=== PATIENT | female | born 1950 | race Two or more races ===

== ENCOUNTER → 2016-11-12 | Outpatient (CLI) | payer MEDICARE, BC | LOC: OD 16:38 | PROVIDERS: ATTEND Internal Medicine | DX: Z94.0 Kidney transplant status (principal) | CPT/HCPCS: 36415; 80197 ==

== ENCOUNTER → 2017-07-23 | Outpatient (CLI) | payer MEDICARE, BC ==
[2017-07-23 09:58] LABS: APPEARANCE,URINE TURBID; BILIRUBIN,URINE NEGATIVE (NEGATIVE); GLUCOSE, URINE >=500 mg/dL (NEGATIVE); KETONES,URINE NEGATIVE (NEGATIVE); LEUKOCYTE ESTERASE,URINE LARGE (NEGATIVE); NITRITE,URINE POSITIVE (NEGATIVE); PROTEIN,URINE 30 mg/dL (NEGATIVE); URINE SPECIFIC GRAVITY 1.008; UROBILINOGEN,URINE NEGATIVE mg/dL (<2.0)
[2017-07-23 10:19] LABS: ANION GAP 14 (5-19); BLOOD UREA NITROGEN 38 mg/dL (7-20); CALCIUM 10.5 mg/dL (8.4-10.2); CARBON DIOXIDE 20 mmol/L (22-30); CHLORIDE 105 mmol/L (98-107); CREATININE RESULT 1.35 mg/dL (0.52-1.25); GLUCOSE 264 mg/dL (75-110); POTASSIUM 4.7 mmol/L (3.6-5.0); SODIUM 138.9 mmol/L (137-145)
== END ==
LOC: OD 08:52
PROVIDERS: ATTEND Internal Medicine Hypertension Specialist
DX: N39.0 Urinary tract infection, site not specified (principal); Z94.0 Kidney transplant status
CPT/HCPCS: 36415; 80048; 81001; 87086; 87088; 87186

== ENCOUNTER → 2017-11-12 | Outpatient (CLI) | payer MEDICARE, BC ==
--- NOTE | 2017-11-12 13:35 | RADIOLOGY REPORT (SQ) ---
EXAM DESCRIPTION: FOOT RIGHT COMPLETE COMPLETED DATE/TIME: 11/12/2017 9:35 am REASON FOR STUDY: Fracture of lesser toe(s) S92.5 COMPARISON: None. NUMBER OF VIEWS: Three views. TECHNIQUE: AP, lateral and oblique radiographic images acquired of the right foot. LIMITATIONS: None. FINDINGS: MINERALIZATION: Osteopenia. BONES: No acute fracture or dislocation. No worrisome bone lesions. JOINTS: No effusions. SOFT TISSUES: Vascular calcifications. OTHER: Plate and screw fixation healed distal fibular fracture. IMPRESSION: NO RADIOGRAPHIC EVIDENCE OF ACUTE INJURY. TECHNICAL DOCUMENTATION: JOB ID: [id number] [employer]- All Rights Reserved
== END ==
LOC: OD 09:15
PROVIDERS: ATTEND Preventive Medicine Undersea and Hyperbaric Medicine
DX: S92.501A Displaced unspecified fracture of right lesser toe(s), initial encounter for closed fracture (principal); X58.XXXA Exposure to other specified factors, initial encounter

== ENCOUNTER → 2018-05-11 | Outpatient (CLI) | payer MEDICARE, BC ==
[2018-05-11 17:58] LABS: ABSOLUTE EOSINOPHILS # (AUTO) 0.1 10^3/uL (0.0-0.6); ABSOLUTE LYMPHOCYTES (AUTO) 0.9 10^3/uL (0.5-4.7); ABSOLUTE MONOCYTES (AUTO) 0.5 10^3/uL (0.1-1.4); ABSOLUTE NEUT (AUTO) 3.6 10^3/uL (1.7-8.2); BASOPHILS % (AUTO) 0.9 % (0-2); EOSINOPHILS % (AUTO) 2.1 % (0-6); HEMATOCRIT 38.3 % (36.0-47.0); HEMOGLOBIN 12.8 g/dL (12.0-15.5); LYMPHOCYTES % (AUTO) 17.1 % (13-45); MEAN CORPUSCULAR HGB CONC 33.5 g/dL (32.0-36.0); MEAN CORPUSCULAR VOLUME 87 fl (80-97); MONOCYTES % (AUTO) 9.8 % (3-13); PLATELET COUNT 158 10^3/uL (150-450); RED BLOOD COUNT 4.42 10^6/uL (3.72-5.28); RED CELL DISTRIBUTION WIDTH 13.9 % (11.5-14.0); SEGMENTED NEUTROPHILS % (AUTO) 70.1 % (42-78); TOTAL CELLS COUNTED % (AUTO) 100 %; WHITE BLOOD COUNT 5.1 10^3/uL (4.0-10.5)
--- NOTE | 2018-05-11 18:22 | RADIOLOGY REPORT (SQ) ---
EXAM DESCRIPTION: FOOT LEFT COMPLETE COMPLETED DATE/TIME: 05/11/2018 5:25 pm REASON FOR STUDY: TYPE 2 DIABETES MELLITUS WITH FOOT ULCER/ L97.522 NON-PRS CHRONIC ULCER OTH PRT L EFT FOOT W FAT LAYER E11.621 TYPE 2 DIABETES MELLITUS WITH FOOT ULCER COMPARISON: 12/22/2015 NUMBER OF VIEWS: Three views. TECHNIQUE: AP, lateral and oblique radiographic images acquired of the left foot. LIMITATIONS: None. FINDINGS: MINERALIZATION: Osteopenia. BONES: Amputation of the forefoot. Metatarsal bases remain. There is irregular ossification of the distal ends of the 2nd and 3rd metatarsals. JOINTS: No effusions. SOFT TISSUES: No soft tissue swelling. No foreign body. OTHER: No other significant finding. IMPRESSION: Cannot exclude osteomyelitis in the 2nd and 3rd metatarsals. TECHNICAL DOCUMENTATION: JOB ID: [id number] [employer]- All Rights Reserved Reading location - IP/workstation name: [email or web address]
[2018-05-11 18:24] LABS: ALANINE AMINOTRANSFERASE 26 U/L (9-52); ALBUMIN 4.3 g/dL (3.5-5.0); ALKALINE PHOSPHATASE 81 U/L (38-126); ANION GAP 12 (5-19); ASPARTATE AMINO TRANSFERASE 25 U/L (14-36); BILIRUBIN,DIRECT 0.4 mg/dL (0.0-0.4); BILIRUBIN,TOTAL 0.6 mg/dL (0.2-1.3); BLOOD UREA NITROGEN 35 mg/dL (7-20); C-REACTIVE PROTEIN 6.3 mg/L (<10.0); CALCIUM 11.8 mg/dL (8.4-10.2); CARBON DIOXIDE 25 mmol/L (22-30); CHLORIDE 107 mmol/L (98-107); GLUCOSE 95 mg/dL (75-110); POTASSIUM 4.7 mmol/L (3.6-5.0); SODIUM 143.8 mmol/L (137-145); TOTAL PROTEIN 8.1 g/dL (6.3-8.2)
[2018-05-11 18:37] LABS: ERYTHROCYTE SEDIMENTATION RATE 29 mm/hr (0-30)
== END ==
LOC: OD 16:37
PROVIDERS: ATTEND Nurse Practitioner
DX: E11.621 Type 2 diabetes mellitus with foot ulcer (principal); L97.522 Non-pressure chronic ulcer of other part of left foot with fat layer exposed
CPT/HCPCS: 36415; 80053; 85025; 85652; 86140

== ENCOUNTER → 2018-06-16 | Outpatient (CLI) | payer MEDICARE, BC ==
--- NOTE | 2018-06-16 17:43 | RADIOLOGY REPORT (SQ) ---
EXAM DESCRIPTION: FOOT LEFT COMPLETE COMPLETED DATE/TIME: 06/16/2018 5:20 pm REASON FOR STUDY: L97.522, NON-PRS CHRONIC ULCER OTH PRT LEFT FOOT W FAT LAYER EXPOSED L97.522 NON- PRS CHRONIC ULCER OTH PRT LEFT FOOT W FAT LAYER COMPARISON: 05/11/2018 NUMBER OF VIEWS: Three views. TECHNIQUE: AP, lateral and oblique radiographic images acquired of the left foot. LIMITATIONS: None. FINDINGS: MINERALIZATION: Normal. BONES: Amputation of the forefoot from the mid metatarsal level. No evidence of osteomyelitis. JOINTS: No effusions. SOFT TISSUES: No soft tissue swelling. No foreign body. OTHER: No other significant finding. IMPRESSION: Amputations. No evidence of osteomyelitis. TECHNICAL DOCUMENTATION: JOB ID: [id number] [employer]- All Rights Reserved Reading location - IP/workstation name: [email or web address]
== END ==
LOC: OD 16:54
PROVIDERS: ATTEND Preventive Medicine Undersea and Hyperbaric Medicine
DX: L97.522 Non-pressure chronic ulcer of other part of left foot with fat layer exposed (principal)

== ENCOUNTER → 2018-06-27 | Outpatient (CLI) | payer MEDICARE, BC ==
--- NOTE | 2018-06-27 15:20 | XCELERA REPORT ---
[address] [address] Lower Extremity Arterial Evaluation Name: HETAL BERMAN Age: 67 yrs Gender: Female : 1950 Patient Status: Outpatient Patient Location: RAD Study Date: 06/27/2018 09:57 AM Procedure: A color flow and duplex scan of the lower extremity arteries was performed bilaterally with velocity and waveform anaylsis. Reason For Study: ULCER Ordering Physician: SERGEY CHILDRESS Performed By: Michelet Elliott Measurements and Calculations Right Left DATABASE PROGRAMMER ANALYST PSV 120.8 125.7 cm/sec Prox PFA PSV -116.9 95.9 cm/sec Prox SFA PSV 106.9 149.3 cm/sec Mid SFA PSV -101.8 -120.1cm/sec Dist SFA PSV -32.3 -81.5 cm/sec Prox Pop A PSV 66.7 98.7 cm/sec Dist MARY PSV 57.0 29.7 cm/sec Dist SITE RELIABILITY ENGINEER PSV 46.6 114.1 cm/sec Theron Pedis PSV -140.4 cm/sec Right Side Arterial Evaluation Normal velocity and triphasic waveforms noted from the Common Femoral artery to the Popliteal. Biphasic with well preserved velocities to the infrageniculate vessels. 0-19% stenosis at the infrageniculate vessels. Ankle Brachial index not obtainable due to non compressibility. Left Side Arterial Evaluation Normal velocity and triphasic waveforms noted from the Common Femoral artery to the infrageniculate vessels. 0 % stenosis. Ankle Brachial index obtainable due to presence of bandaging.. Interpretation Summary : SERGEY CHILDRESS > Cyrus Carias
== END ==
LOC: RAD 09:33
PROVIDERS: ATTEND Preventive Medicine Undersea and Hyperbaric Medicine
DX: L97.522 Non-pressure chronic ulcer of other part of left foot with fat layer exposed (principal)
CPT/HCPCS: 93925

== ENCOUNTER → 2018-10-20 | Outpatient (CLI) | payer MEDICARE, BC ==
--- NOTE | 2018-10-20 13:04 | RADIOLOGY REPORT (SQ) ---
EXAM DESCRIPTION: CHEST PA/LATERAL COMPLETED DATE/TIME: 10/20/2018 12:52 pm REASON FOR STUDY: COUGH; BRONCHITIS, NOT SPECIFIED ACUTE OR CHRONIC COMPARISON: 11/06/2010. Chest x-ray dated 11/06/2010. Chest CT dated 09/17/2015. EXAM PARAMETERS: NUMBER OF VIEWS: two views TECHNIQUE: Digital Frontal and Lateral radiographic views of the chest acquired. RADIATION DOSE: NA LIMITATIONS: none FINDINGS: LUNGS AND PLEURA: Indistinct 1.5 cm nodule in the left lower lobe, partially obscured by t he adjacent cardiac silhouette. No lobar infiltrates. No pleural effusion or pneumothorax. MEDIASTINUM AND HILAR STRUCTURES: No masses or contour abnormalities. HEART AND VASCULAR STRUCTURES: Heart normal size. No evidence for failure. BONES: No acute findings. HARDWARE: Surgical clips in the upper abdomen. OTHER: No other significant finding. IMPRESSION: INDISTINCT NODULE IN THE LEFT LOWER LOBE. PREVIOUS CHEST CT IN 2014 DEMONSTRATED A LEFT LOWER LOBE NODULE ALTHOUGH ON CHEST CT THE NODULE WAS LOCATED MORE LATERALLY COMPARED TO THE CURRENT CHEST X-RAY. WOULD RECOMMEND FOLLOW-UP WITH CT CHEST. TECHNICAL DOCUMENTATION: JOB ID: [id number] [employer]- All Rights Reserved Reading location - IP/workstation name: [email or web address]
[2018-10-20 13:06] LABS: ABSOLUTE BASOPHILS # (AUTO) 0.1 10^3/uL (0.0-0.2); ABSOLUTE EOSINOPHILS # (AUTO) 0.3 10^3/uL (0.0-0.6); ABSOLUTE LYMPHOCYTES (AUTO) 0.8 10^3/uL (0.5-4.7); ABSOLUTE MONOCYTES (AUTO) 0.6 10^3/uL (0.1-1.4); ABSOLUTE NEUT (AUTO) 5.4 10^3/uL (1.7-8.2); BASOPHILS % (AUTO) 1.3 % (0-2); EOSINOPHILS % (AUTO) 3.5 % (0-6); HEMATOCRIT 38.5 % (36.0-47.0); MEAN CORPUSCULAR HEMOGLOBIN 29.1 pg (27.0-33.4); MEAN CORPUSCULAR HGB CONC 33.7 g/dL (32.0-36.0); MEAN CORPUSCULAR VOLUME 86 fl (80-97); MONOCYTES % (AUTO) 8.5 % (3-13); PLATELET COUNT 169 10^3/uL (150-450); RED BLOOD COUNT 4.46 10^6/uL (3.72-5.28); RED CELL DISTRIBUTION WIDTH 13.9 % (11.5-14.0); SEGMENTED NEUTROPHILS % (AUTO) 75.7 % (42-78); TOTAL CELLS COUNTED % (AUTO) 100 %; WHITE BLOOD COUNT 7.1 10^3/uL (4.0-10.5)
[2018-10-20 13:31] LABS: ALANINE AMINOTRANSFERASE < 6 U/L (9-52); ALBUMIN 4.3 g/dL (3.5-5.0); ALKALINE PHOSPHATASE 73 U/L (38-126); ANION GAP 11 (5-19); ASPARTATE AMINO TRANSFERASE 18 U/L (14-36); BILIRUBIN,DIRECT 0.3 mg/dL (0.0-0.4); BILIRUBIN,TOTAL 0.6 mg/dL (0.2-1.3); BLOOD UREA NITROGEN 36 mg/dL (7-20); CALCIUM 10.6 mg/dL (8.4-10.2); CARBON DIOXIDE 24 mmol/L (22-30); CHLORIDE 107 mmol/L (98-107); GLUCOSE 83 mg/dL (75-110); POTASSIUM 4.5 mmol/L (3.6-5.0); SODIUM 141.8 mmol/L (137-145); TOTAL PROTEIN 7.8 g/dL (6.3-8.2)
== END ==
LOC: OD 12:14
PROVIDERS: ATTEND Internal Medicine
DX: R05 Cough (principal); J40 Bronchitis, not specified as acute or chronic; E11.8 Type 2 diabetes mellitus with unspecified complications; E11.621 Type 2 diabetes mellitus with foot ulcer; L97.522 Non-pressure chronic ulcer of other part of left foot with fat layer exposed; R91.1 Solitary pulmonary nodule
CPT/HCPCS: 36415; 71046; 80053; 85025

== ENCOUNTER → 2018-11-17 | Outpatient (CLI) | payer MEDICARE, BC ==
[2018-11-17 17:57] LABS: ABSOLUTE EOSINOPHILS # (AUTO) 0.1 10^3/uL (0.0-0.6); ABSOLUTE LYMPHOCYTES (AUTO) 0.6 10^3/uL (0.5-4.7); ABSOLUTE MONOCYTES (AUTO) 0.3 10^3/uL (0.1-1.4); ABSOLUTE NEUT (AUTO) 3.9 10^3/uL (1.7-8.2); BASOPHILS % (AUTO) 0.7 % (0-2); EOSINOPHILS % (AUTO) 2.2 % (0-6); HEMATOCRIT 37.1 % (36.0-47.0); HEMOGLOBIN 12.5 g/dL (12.0-15.5); LYMPHOCYTES % (AUTO) 11.6 % (13-45); MEAN CORPUSCULAR HEMOGLOBIN 29.1 pg (27.0-33.4); MEAN CORPUSCULAR HGB CONC 33.7 g/dL (32.0-36.0); MEAN CORPUSCULAR VOLUME 86 fl (80-97); MONOCYTES % (AUTO) 6.1 % (3-13); PLATELET COUNT 147 10^3/uL (150-450); RED BLOOD COUNT 4.29 10^6/uL (3.72-5.28); RED CELL DISTRIBUTION WIDTH 14.4 % (11.5-14.0); SEGMENTED NEUTROPHILS % (AUTO) 79.4 % (42-78); TOTAL CELLS COUNTED % (AUTO) 100 %; WHITE BLOOD COUNT 4.9 10^3/uL (4.0-10.5)
[2018-11-17 18:19] LABS: ALANINE AMINOTRANSFERASE 18 U/L (9-52); ALBUMIN 4.6 g/dL (3.5-5.0); ALKALINE PHOSPHATASE 78 U/L (38-126); ANION GAP 8 (5-19); ASPARTATE AMINO TRANSFERASE 21 U/L (14-36); BILIRUBIN,DIRECT 0.3 mg/dL (0.0-0.4); BILIRUBIN,TOTAL 0.7 mg/dL (0.2-1.3); BLOOD UREA NITROGEN 32 mg/dL (7-20); CALCIUM 10.3 mg/dL (8.4-10.2); CARBON DIOXIDE 25 mmol/L (22-30); CHLORIDE 107 mmol/L (98-107); GLUCOSE 154 mg/dL (75-110); POTASSIUM 4.8 mmol/L (3.6-5.0); SODIUM 139.9 mmol/L (137-145); TOTAL PROTEIN 7.9 g/dL (6.3-8.2)
--- NOTE | 2018-11-17 18:27 | RADIOLOGY REPORT (SQ) ---
EXAM DESCRIPTION: FOOT LEFT COMPLETE COMPLETED DATE/TIME: 11/17/2018 5:48 pm REASON FOR STUDY: NON-PRS CHRONIC ULCER OTH PRT LEFT FOOT W FAT LAYER EXPOSED E11.621 TYPE 2 DIABET ES MELLITUS WITH FOOT ULCER L97.522 NON-PRS CHRONIC ULCER OTH PRT LEFT FOOT W FAT LAYER M25.551 PA IN IN RIGHT HIP COMPARISON: None. NUMBER OF VIEWS: Three views. TECHNIQUE: AP, lateral and oblique radiographic images acquired of the left foot. LIMITATIONS: None. FINDINGS: MINERALIZATION: Normal. BONES: Amputation of the forefoot from the proximal to mid metatarsal level. No evidence of osteomye litis. Plantar and dorsal calcaneal spurs. JOINTS: No effusions. SOFT TISSUES: Anterior ulcer. OTHER: No other significant finding. IMPRESSION: No evidence of osteomyelitis. TECHNICAL DOCUMENTATION: JOB ID: [id number] [employer]- All Rights Reserved Reading location - IP/workstation name: [email or web address]
--- NOTE | 2018-11-17 18:28 | RADIOLOGY REPORT (SQ) ---
EXAM DESCRIPTION: HIPS BILATERAL COMPLETED DATE/TIME: 11/17/2018 5:48 pm REASON FOR STUDY: BILAT HIP PAIN E11.621 TYPE 2 DIABETES MELLITUS WITH FOOT ULCER L97.522 NON-PRS CHRONIC ULCER OTH PRT LEFT FOOT W FAT LAYER M25.551 PAIN IN RIGHT HIP COMPARISON: None. NUMBER OF VIEWS: Two views TECHNIQUE: AP pelvis and additional frog-leg view of both hips. LIMITATIONS: None. FINDINGS: MINERALIZATION: Normal. HIPS: No acute fracture or dislocation. No worrisome bone lesions. PELVIS AND SACRUM: No acute fracture or dislocation. No worrisome bone lesions. PUBIS AND ISCHIUM: No acute fracture. LOWER LUMBAR SPINE: No significant findings as visualized. SOFT TISSUES: No findings. OTHER: No other significant finding. IMPRESSION: NEGATIVE STUDY OF THE PELVIS AND HIPS. TECHNICAL DOCUMENTATION: JOB ID: [id number] [employer]- All Rights Reserved Reading location - IP/workstation name: [email or web address]
[2018-11-17 18:57] LABS: ERYTHROCYTE SEDIMENTATION RATE 23 mm/hr (0-30)
== END ==
LOC: OD 16:31
PROVIDERS: ATTEND Surgery
DX: M25.551 Pain in right hip (principal); E11.621 Type 2 diabetes mellitus with foot ulcer; L97.522 Non-pressure chronic ulcer of other part of left foot with fat layer exposed
CPT/HCPCS: 36415; 73522; 80053; 83036; 85025; 85652; 86140

== ENCOUNTER → 2019-01-17 | Outpatient (CLI) | payer MEDICARE, BC ==
--- NOTE | 2019-01-17 14:10 | RADIOLOGY REPORT (SQ) ---
EXAM DESCRIPTION: FOOT LEFT COMPLETE COMPLETED DATE/TIME: 01/17/2019 1:54 pm REASON FOR STUDY: NON-PRS CHRONIC ULCER OTH PRT LEFT FOOT W FAT LAYER EXPOSED L97.522 NON-PRS CHRON IC ULCER OTH PRT LEFT FOOT W FAT LAYER COMPARISON: 11/17/2018 NUMBER OF VIEWS: Three views. TECHNIQUE: AP, lateral and oblique radiographic images acquired of the left foot. LIMITATIONS: None. FINDINGS: MINERALIZATION: Normal. BONES: As on the previous examination, amputation of the forefoot down to the mid metatarsal levels. No evidence of erosions or destruction of bone. No acute fracture. Prominent calcaneal spurs. JOINTS: No effusions. SOFT TISSUES: Soft tissue injury and swelling consistent with the patient's known anterior ulcer. N o foreign body. Soft tissue vascular calcifications. OTHER: No other significant finding. IMPRESSION: 1. No significant interval changes since the prior study dated 11/17/2018. No evidence of osteomyelitis. TECHNICAL DOCUMENTATION: JOB ID: [id number] [employer]- All Rights Reserved Reading location - IP/workstation name: [email or web address]
[2019-01-17 14:15] LABS: ABSOLUTE EOSINOPHILS # (AUTO) 0.1 10^3/uL (0.0-0.6); ABSOLUTE LYMPHOCYTES (AUTO) 0.7 10^3/uL (0.5-4.7); ABSOLUTE MONOCYTES (AUTO) 0.4 10^3/uL (0.1-1.4); ABSOLUTE NEUT (AUTO) 3.4 10^3/uL (1.7-8.2); BASOPHILS % (AUTO) 0.8 % (0-2); EOSINOPHILS % (AUTO) 2.1 % (0-6); HEMATOCRIT 36.4 % (36.0-47.0); HEMOGLOBIN 12.4 g/dL (12.0-15.5); LYMPHOCYTES % (AUTO) 15.2 % (13-45); MEAN CORPUSCULAR HEMOGLOBIN 29.3 pg (27.0-33.4); MEAN CORPUSCULAR VOLUME 86 fl (80-97); MONOCYTES % (AUTO) 9.7 % (3-13); PLATELET COUNT 148 10^3/uL (150-450); RED BLOOD COUNT 4.22 10^6/uL (3.72-5.28); RED CELL DISTRIBUTION WIDTH 14.8 % (11.5-14.0); SEGMENTED NEUTROPHILS % (AUTO) 72.2 % (42-78); TOTAL CELLS COUNTED % (AUTO) 100 %; WHITE BLOOD COUNT 4.6 10^3/uL (4.0-10.5)
[2019-01-17 14:42] LABS: ALANINE AMINOTRANSFERASE 23 U/L (9-52); ALBUMIN 4.4 g/dL (3.5-5.0); ALKALINE PHOSPHATASE 82 U/L (38-126); ANION GAP 10 (5-19); ASPARTATE AMINO TRANSFERASE 19 U/L (14-36); BILIRUBIN,DIRECT 0.3 mg/dL (0.0-0.4); BILIRUBIN,TOTAL 0.6 mg/dL (0.2-1.3); BLOOD UREA NITROGEN 26 mg/dL (7-20); C-REACTIVE PROTEIN 6.1 mg/L (<10.0); CALCIUM 10.7 mg/dL (8.4-10.2); CARBON DIOXIDE 24 mmol/L (22-30); CHLORIDE 108 mmol/L (98-107); GLUCOSE 90 mg/dL (75-110); POTASSIUM 4.3 mmol/L (3.6-5.0); SODIUM 141.5 mmol/L (137-145); TOTAL PROTEIN 7.7 g/dL (6.3-8.2)
[2019-01-17 15:05] LABS: ERYTHROCYTE SEDIMENTATION RATE 26 mm/hr (0-30)
== END ==
LOC: WC 13:16
PROVIDERS: ATTEND Preventive Medicine Undersea and Hyperbaric Medicine
DX: L97.522 Non-pressure chronic ulcer of other part of left foot with fat layer exposed (principal)
CPT/HCPCS: 36415; 80053; 85025; 85652; 86140

== ENCOUNTER → 2019-04-13 | Outpatient (CLI) | payer MEDICARE, BC ==
--- NOTE | 2019-04-13 13:25 | RADIOLOGY REPORT (SQ) ---
EXAM DESCRIPTION: FOOT LEFT COMPLETE COMPLETED DATE/TIME: 04/13/2019 12:56 pm REASON FOR STUDY: NON-PRS CHRONIC ULCER OTH PRT LEFT FOOT W FAT LAYER EXPOSED L97.522 NON-PRS CHRON IC ULCER OTH PRT LEFT FOOT W FAT LAYER COMPARISON: 01/17/2019, 11/17/2018,, 12/22/2015 NUMBER OF VIEWS: Three views. TECHNIQUE: AP, lateral and oblique radiographic images acquired of the left foot. LIMITATIONS: None. FINDINGS: MINERALIZATION: Overall normal bone density. Stable sclerosis along the 2nd 3rd and 4th d istal metatarsals at the site of prior transmetatarsal amputation. BONES: No new areas of bony erosion/demineralization or periosteal new bone to suggest osteomyelitis. JOINTS: No effusions. SOFT TISSUES: Again, there is ulceration and irregularity along the soft tissues of the forefoot at t he site of the transmetatarsal amputation OTHER: No other significant finding. IMPRESSION: Stable appearance of the left foot compared to 01/17/2019 and 11/17/2018 TECHNICAL DOCUMENTATION: JOB ID: [id number] [employer]- All Rights Reserved Reading location - IP/workstation name: [email or web address]
== END ==
LOC: WC 12:37
PROVIDERS: ATTEND Preventive Medicine Undersea and Hyperbaric Medicine
DX: L97.522 Non-pressure chronic ulcer of other part of left foot with fat layer exposed (principal)

== ENCOUNTER → 2019-07-25 | Outpatient (CLI) | payer MEDICARE, BC ==
[2019-07-25 12:34] LABS: ABSOLUTE EOSINOPHILS # (AUTO) 0.1 10^3/uL (0.0-0.6); ABSOLUTE LYMPHOCYTES (AUTO) 0.7 10^3/uL (0.5-4.7); ABSOLUTE MONOCYTES (AUTO) 0.5 10^3/uL (0.1-1.4); ABSOLUTE NEUT (AUTO) 4.2 10^3/uL (1.7-8.2); BASOPHILS % (AUTO) 0.6 % (0-2); EOSINOPHILS % (AUTO) 1.7 % (0-6); HEMATOCRIT 37.4 % (36.0-47.0); HEMOGLOBIN 12.5 g/dL (12.0-15.5); LYMPHOCYTES % (AUTO) 12.1 % (13-45); MEAN CORPUSCULAR HEMOGLOBIN 28.4 pg (27.0-33.4); MEAN CORPUSCULAR HGB CONC 33.3 g/dL (32.0-36.0); MEAN CORPUSCULAR VOLUME 85 fl (80-97); MONOCYTES % (AUTO) 8.5 % (3-13); PLATELET COUNT 137 10^3/uL (150-450); RED BLOOD COUNT 4.39 10^6/uL (3.72-5.28); RED CELL DISTRIBUTION WIDTH 14.4 % (11.5-14.0); SEGMENTED NEUTROPHILS % (AUTO) 77.1 % (42-78); TOTAL CELLS COUNTED % (AUTO) 100 %; WHITE BLOOD COUNT 5.4 10^3/uL (4.0-10.5)
[2019-07-25 13:05] LABS: ALBUMIN 4.1 g/dL (3.5-5.0); ALKALINE PHOSPHATASE 83 U/L (38-126); ANION GAP 10 (5-19); ASPARTATE AMINO TRANSFERASE 16 U/L (14-36); BILIRUBIN,DIRECT 0.2 mg/dL (0.0-0.4); BILIRUBIN,TOTAL 0.8 mg/dL (0.2-1.3); BLOOD UREA NITROGEN 40 mg/dL (7-20); CALCIUM 10.1 mg/dL (8.4-10.2); CARBON DIOXIDE 23 mmol/L (22-30); CHLORIDE 107 mmol/L (98-107); GLUCOSE 227 mg/dL (75-110); POTASSIUM 4.5 mmol/L (3.6-5.0); TOTAL PROTEIN 7.4 g/dL (6.3-8.2)
[2019-07-25 13:09] LABS: C-REACTIVE PROTEIN < 5.0 mg/L (<10.0)
[2019-07-25 13:12] LABS: ERYTHROCYTE SEDIMENTATION RATE 21 mm/hr (0-30)
--- NOTE | 2019-07-25 16:50 | RADIOLOGY REPORT (SQ) ---
EXAM DESCRIPTION: FOOT LEFT COMPLETE COMPLETED DATE/TIME: 07/25/2019 12:25 pm REASON FOR STUDY: NON-PRS CHRONIC ULCER OTH PRT LEFT FOOT W FAT LAYER EXPOSED L97.522 NON-PRS CHRON IC ULCER OTH PRT LEFT FOOT W FAT LAYER E11.621 TYPE 2 DIABETES MELLITUS WITH FOOT ULCER COMPARISON: AP, lateral and oblique views of the left foot from 04/13/2019. NUMBER OF VIEWS: Three views. TECHNIQUE: AP, lateral and oblique radiographic images acquired of the left foot. LIMITATIONS: None. FINDINGS: MINERALIZATION: Normal. BONES: Status post transmetatarsal amputation ; the irregularity/sclerosis along the distal aspect of the 2nd, 3rd and 4th metatarsals is unchanged compared to 04/13/2019. There is no subcutaneous emphy sema or radiopaque foreign body. JOINTS: No effusions. SOFT TISSUES: Ulceration and irregularity along the soft tissues of the forefoot at the site of trans metatarsal amputation, unchanged. OTHER: Vascular calcifications. IMPRESSION: Unchanged radiographic appearance of the left foot as detailed above. TECHNICAL DOCUMENTATION: JOB ID: [id number] [employer]- All Rights Reserved Reading location - IP/workstation name: [email or web address]
== END ==
LOC: WC 11:52
PROVIDERS: ATTEND Preventive Medicine Undersea and Hyperbaric Medicine
DX: E11.621 Type 2 diabetes mellitus with foot ulcer (principal); L97.522 Non-pressure chronic ulcer of other part of left foot with fat layer exposed; Z89.432 Acquired absence of left foot
CPT/HCPCS: 36415; 80053; 83036; 85025; 85652; 86140

== ENCOUNTER → 2019-09-12 | Outpatient (CLI) | payer MEDICARE, BC ==
--- NOTE | 2019-09-12 13:03 | RADIOLOGY REPORT (SQ) ---
EXAM DESCRIPTION: FOOT LEFT COMPLETE COMPLETED DATE/TIME: 09/12/2019 12:40 pm REASON FOR STUDY: NON-PRS CHRONIC ULCER OTH PRT LEFT FOOT W FAT LAYER EXPOSED L97.522 NON-PRS CHRON IC ULCER OTH PRT LEFT FOOT W FAT LAYER E11.621 TYPE 2 DIABETES MELLITUS WITH FOOT ULCER COMPARISON: None. NUMBER OF VIEWS: Three views. TECHNIQUE: AP, lateral and oblique radiographic images acquired of the left foot. LIMITATIONS: None. FINDINGS: MINERALIZATION: Normal. BONES: Forefoot amputation from the mid metatarsals. No bone destruction. Calcaneal spurs. JOINTS: No effusions. SOFT TISSUES: No soft tissue swelling. No foreign body. OTHER: No other significant finding. IMPRESSION: No evidence of osteomyelitis. Calcaneal spurs are present incidentally. TECHNICAL DOCUMENTATION: JOB ID: [id number] [email or web address]- All Rights Reserved Reading location - IP/workstation name: [email or web address]
[2019-09-12 13:33] LABS: ABSOLUTE EOSINOPHILS # (AUTO) 0.1 10^3/uL (0.0-0.6); ABSOLUTE LYMPHOCYTES (AUTO) 0.7 10^3/uL (0.5-4.7); ABSOLUTE MONOCYTES (AUTO) 0.5 10^3/uL (0.1-1.4); ABSOLUTE NEUT (AUTO) 4.9 10^3/uL (1.7-8.2); BASOPHILS % (AUTO) 0.7 % (0-2); EOSINOPHILS % (AUTO) 1.9 % (0-6); HEMATOCRIT 36.1 % (36.0-47.0); HEMOGLOBIN 12.2 g/dL (12.0-15.5); LYMPHOCYTES % (AUTO) 11.5 % (13-45); MEAN CORPUSCULAR HEMOGLOBIN 28.7 pg (27.0-33.4); MEAN CORPUSCULAR HGB CONC 33.8 g/dL (32.0-36.0); MEAN CORPUSCULAR VOLUME 85 fl (80-97); MONOCYTES % (AUTO) 7.4 % (3-13); PLATELET COUNT 137 10^3/uL (150-450); RED BLOOD COUNT 4.25 10^6/uL (3.72-5.28); RED CELL DISTRIBUTION WIDTH 14.4 % (11.5-14.0); SEGMENTED NEUTROPHILS % (AUTO) 78.5 % (42-78); TOTAL CELLS COUNTED % (AUTO) 100 %; WHITE BLOOD COUNT 6.3 10^3/uL (4.0-10.5)
[2019-09-12 13:58] LABS: ALBUMIN 4.1 g/dL (3.5-5.0); ALKALINE PHOSPHATASE 71 U/L (38-126); ANION GAP 12 (5-19); ASPARTATE AMINO TRANSFERASE 18 U/L (14-36); BILIRUBIN,DIRECT 0.2 mg/dL (0.0-0.4); BILIRUBIN,TOTAL 0.8 mg/dL (0.2-1.3); BLOOD UREA NITROGEN 38 mg/dL (7-20); CALCIUM 10.3 mg/dL (8.4-10.2); CARBON DIOXIDE 22 mmol/L (22-30); CHLORIDE 110 mmol/L (98-107); GLUCOSE 89 mg/dL (75-110); POTASSIUM 4.4 mmol/L (3.6-5.0); TOTAL PROTEIN 7.5 g/dL (6.3-8.2)
[2019-09-12 14:03] LABS: C-REACTIVE PROTEIN < 5.0 mg/L (<10.0)
[2019-09-12 14:17] LABS: ERYTHROCYTE SEDIMENTATION RATE 16 mm/hr (0-30)
== END ==
LOC: OD 12:05
PROVIDERS: ATTEND Preventive Medicine Undersea and Hyperbaric Medicine
DX: E11.621 Type 2 diabetes mellitus with foot ulcer (principal); L97.522 Non-pressure chronic ulcer of other part of left foot with fat layer exposed; M77.32 Calcaneal spur, left foot
CPT/HCPCS: 36415; 80053; 83036; 85025; 85652; 86140

== ENCOUNTER 2019-12-27 23:20 | Inpatient (IN) | payer MEDICARE, BC ==
[2019-12-27 23:57] LABS: ABSOLUTE EOSINOPHILS # (AUTO) 0.1 10^3/uL (0.0-0.6); ABSOLUTE LYMPHOCYTES (AUTO) 0.7 10^3/uL (0.5-4.7); ABSOLUTE MONOCYTES (AUTO) 0.6 10^3/uL (0.1-1.4); ABSOLUTE NEUT (AUTO) 3.7 10^3/uL (1.7-8.2); BASOPHILS % (AUTO) 0.6 % (0-2); HEMATOCRIT 37.5 % (36.0-47.0); HEMOGLOBIN 12.4 g/dL (12.0-15.5); LYMPHOCYTES % (AUTO) 14.4 % (13-45); MEAN CORPUSCULAR HEMOGLOBIN 28.7 pg (27.0-33.4); MEAN CORPUSCULAR VOLUME 87 fl (80-97); MONOCYTES % (AUTO) 11.7 % (3-13); PLATELET COUNT 134 10^3/uL (150-450); RED BLOOD COUNT 4.31 10^6/uL (3.72-5.28); SEGMENTED NEUTROPHILS % (AUTO) 72.3 % (42-78); TOTAL CELLS COUNTED % (AUTO) 100 %; WHITE BLOOD COUNT 5.2 10^3/uL (4.0-10.5)
[2019-12-28 00:20] LABS: ALBUMIN 3.9 g/dL (3.5-5.0); ALKALINE PHOSPHATASE 115 U/L (38-126); ANION GAP 11 (5-19); ASPARTATE AMINO TRANSFERASE 18 U/L (14-36); BILIRUBIN,DIRECT 0.3 mg/dL (0.0-0.4); BILIRUBIN,TOTAL 0.6 mg/dL (0.2-1.3); BLOOD UREA NITROGEN 46 mg/dL (7-20); CALCIUM 9.6 mg/dL (8.4-10.2); CARBON DIOXIDE 17 mmol/L (22-30); CHLORIDE 111 mmol/L (98-107); GLUCOSE 171 mg/dL (75-110); TOTAL PROTEIN 7.6 g/dL (6.3-8.2)
[2019-12-28 00:22] LABS: POTASSIUM 6.1 mmol/L (3.6-5.0)
[2019-12-28] MEDS ORDERED: FENTANYL CITRATE INJ/PF 100 MCG/2 ML AMPUL IV PRN (00:43)
[2019-12-28] MEDS ORDERED: ONDANSETRON HCL INJ/PF 4 MG/2 ML SDV IV ONE (00:43)
[2019-12-28] MEDS ORDERED: INSULIN REG, HUMAN 100 UNIT/ML 3 ML VIAL (PYX) IV ONE (00:54)
[2019-12-28] MEDS ORDERED: SODIUM POLYSTYRENE SULFONATE 15 GM/60 ML NG ONE (00:54)
[2019-12-28] MEDS ORDERED: CALCIUM GLUCONATE 1000 MG/10 ML INJ IV ONE (00:54)
[2019-12-28] MEDS ORDERED: DEXTROSE 50%-WATER 25 GM/50 ML DISP.SYRIN IV ONE (00:54)
[2019-12-28] MEDS ORDERED: SODIUM BICARBONATE 8.4% INJ 50 MEQ/50 ML DISP.SYRIN IV ONE (00:56)
--- NOTE | 2019-12-28 01:05 | ER Document Report ---
ED General - General Chief Complaint: General Weakness Stated Complaint: WEAKNESS Time Seen by Provider: 12/28/19 00:24 Primary Care Provider: BRIA VALENCIA MD [Primary Care Provider] - Follow up as needed TRAVEL OUTSIDE OF THE [place] IN LAST 30 DAYS: No - HPI Notes: 69-year-old female with previous renal transplant in 2011 seen at this time for generalized weakness worsening over the last several days. No vomiting. No fever. No focal weakness. - Related Data Allergies/Adverse Reactions: azithromycin [From Zithromax] Adverse Reaction (Verified 12/22/15 16:17) codeine [Codeine] Adverse Reaction (Verified 12/22/15 16:17) Home Medications: asa 81mg po. tacrolimus 1mg bid. prilosec 1 daily. restoril as needed for sleep. prednisone 5m po daily Past Medical History - General Information source: Patient, Relative - Social History Smoking Status: Never Smoker Chew tobacco use (# tins/day): No Frequency of alcohol use: None Drug Abuse: None Family History: Reviewed & Not Pertinent Patient has suicidal ideation: No Patient has homicidal ideation: No - Past Medical History Cardiac Medical History: Reports: Hx Coronary Artery Disease, Hx Hypercholesterolemia, Hx Hypertension, Hx Peripheral Vascular Disease Denies: Hx Heart Attack Pulmonary Medical History: Denies: Hx Asthma, Hx Bronchitis, Hx COPD, Hx Pneumonia Neurological Medical History: Denies: Hx Cerebrovascular Accident, Hx Seizures Endocrine Medical History: Reports: Hx Diabetes Mellitus Type 2 Renal/ Medical History: Reports: Hx End Stage Renal Disease - w/ kidney transplant Musculoskeletal Medical History: Denies Hx Arthritis Skin Medical History: Reports Hx Cellulitis Psychiatric Medical History: Denies: Hx Depression Past Surgical History: Reports: Hx Cholecystectomy, Hx Kidney (Renal Surgery) - transplant, 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 Denies: Hx Hysterectomy, Hx Pacemaker - Immunizations Hx Diphtheria, Pertussis, Tetanus Vaccination: Yes Hx Pneumococcal Vaccination: 11/01/09 Review of Systems - Review of Systems Notes: Constitutional: Negative for fever. HENT: Negative for sore throat. Eyes: Negative for visual changes. Cardiovascular: Negative for chest pain. Respiratory: Negative for shortness of breath. Gastrointestinal: Negative for abdominal pain, vomiting or diarrhea. Genitourinary: Negative for dysuria. Musculoskeletal: Negative for back pain. Skin: Negative for rash. Neurological: Negative for headaches, focal weakness or numbness. 10 point ROS negative except as marked above and in HPI. Physical Exam - Vital signs Vitals: Temp Pulse Resp BP Pulse Ox 98.1 F 81 19 172/76 H 98 12/27/19 23:20 12/27/19 23:20 12/27/19 23:20 12/27/19 23:20 12/27/19 23:20 - Notes Notes: GENERAL: Moderately obese female approximately stated age appearing in no acute distress. SKIN: Good turgor no rashes. HEAD: Normocephalic atraumatic. EYES: PERRLA. EOMI. Conjunctivae and sclerae clear. EARS: CANALS AND TMS CLEAR. NOSE: CLEAR. MOUTH: Moist mucosa. Good dentition. No stridor or edema. No drooling. NECK: Supple. No masses or thyromegaly. No adenopathy. Carotids 2+ without bruits. No JVD. BACK: Symmetrical without tenderness. CHEST: Respirations unlabored. Breath sounds clear and symmetrical. HEART: Regular rhythm. No murmur gallop or rub. ABDOMEN: Soft nontender without masses, organomegaly or rebound. Bowel sounds normally active. No bruits. GENITALIA: Deferred. EXTREMITIES: Previous amputation of all the toes on the left foot with surgical dressing in place. No edema. No calf tenderness. Cap refill less than 1.5 seconds. Dorsalis pedis and posterior tibial pulses 1+ and symmetrical. NEUROLOGICAL: GCS 15. Alert and oriented x3. Fluent speech. Cranial nerves II through XII intact. Sensorimotor and cerebellar normal. Normal tone. PSYCHIATRIC: Appropriate affect. Course - Re-evaluation Re-evalutation: 12/28/19 01:04 Patient is hyperkalemic. We are going to give calcium gluconate IV along with IV glucose and insulin IV bicarb. We are also giving patient oral Kayexalate. She is placed on school lunch monitor and will require admission. 12/28/19 01:29 Case reviewed with on-call hospitalist Dr. Ghulam Matute who is excepted the patient for admission to telemetry. - Vital Signs Vital signs: Temp Pulse Resp BP Pulse Ox 98.1 F 81 12 189/83 H 99 12/27/19 23:20 12/27/19 23:31 12/28/19 00:01 12/28/19 00:01 12/28/19 00:01 - Laboratory Result Diagrams: 12/27/19 23:48 12/27/19 23:48 Laboratory results interpreted by me: 12/27/19 12/27/19 23:48 23:48 RDW 15.0 H Plt Count 134 L Potassium 6.1 H* Chloride 111 H Carbon Dioxide 17 L BUN 46 H Creatinine 1.28 H Est GFR ( Amer) 50 L Est GFR (MDRD) Non-Af 41 L Glucose 171 H Lipase 487.4 H - EKG Interpretation by Me Additional EKG results interpreted by me: 12/28/19 01:28 Twelve-lead EKG from 003 4 hours evaluated by me contemporaneously showing normal sinus rhythm 75 with some mild peaking of the T waves consistent with hyperkalemia. Intervals are normal. Critical Care Note - Critical Care Note Total time excluding time spent on procedures (mins): 35 - Emergency treatment of hyperkalemia Discharge - Discharge Clinical Impression: Hyperkalemia, Kidney transplant recipient Condition: Fair Disposition: ADMITTED INPATIENT Admitting Provider: Giovani (Hospitalist) Unit Admitted: Telemetry Referrals: BRIA VALENCIA MD [Primary Care Provider] - Follow up as needed
[2019-12-28] MEDS ORDERED: ACETAMINOPHEN 325 MG TABLET PO PRN (01:29)
[2019-12-28] MEDS ORDERED: MAG HYDROX/AL HYDROX/SIMETH SUSP 30 ML UDCUP PO PRN (01:29)
[2019-12-28] MEDS ORDERED: GLUCAGON,HUMAN RECOMB 1 MG INJ IM PRN (01:33)
[2019-12-28] MEDS ORDERED: LACTULOSE SYRUP 20 GM/30 ML UDCUP PO ONE ×2 (01:33→02:10)
[2019-12-28] MEDS ORDERED: TEMAZEPAM 15 MG CAPSULE PO PRN (01:33)
[2019-12-28] MEDS ORDERED: DEXTROSE 50%-WATER 25 GM/50 ML DISP.SYRIN IV PRN ×2 (01:33)
[2019-12-28] MEDS ORDERED: DEXTROSE 40% GEL 15 GM TUBE PO PRN ×2 (01:33)
[2019-12-28 01:55] LABS: APPEARANCE,URINE CLEAR; BILIRUBIN,URINE NEGATIVE (NEGATIVE); COLOR,URINE YELLOW; GLUCOSE, URINE 50 mg/dL (NEGATIVE); KETONES,URINE NEGATIVE (NEGATIVE); LEUKOCYTE ESTERASE,URINE NEGATIVE (NEGATIVE); NITRITE,URINE NEGATIVE (NEGATIVE); PROTEIN,URINE 30 mg/dL (NEGATIVE); URINE SPECIFIC GRAVITY 1.017; UROBILINOGEN,URINE NEGATIVE mg/dL (<2.0)
[2019-12-28] MEDS ORDERED: HYDRALAZINE HCL INJ/PF 20 MG/1 ML SDV IV PRN (06:30)
--- NOTE | 2019-12-28 06:41 | PDOC H&P ---
History of Present Illness Admission Date/PCP: 12/28/19 01:52 BRIA VALENCIA MD Patient complains of: Generalized weakness History of Present Illness: HETAL BERMAN is a 69 year old female with a past medical history of renal transplant 2012, CKD 3, recurrent hyperkalemia, peripheral vascular disease, diabetes, left toe amputations and diabetic chronic ulcer. She presents with 5 or 6 days of generalized weakness and fatigue prompting evaluation the emergency department where she is found to have metabolic acidosis with hyperkalemia of 6.1 complicated by peaked T waves. She is ordered calcium gluconate, glucose, insulin, bicarb and Kayexalate then referred to the hospitalist for admission. Patient admits to dietary indiscretion but denies palpitations chest pain nausea vomiting or diaphoresis. She also admits to prolonged constipation. Past Medical History Cardiac Medical History: Reports: Coronary Artery Disease, Hyperlipidema, Hypertension, Peripheral Vascular Disease Denies: Myocardial Infarction Pulmonary Medical History: Denies: Asthma, Bronchitis, Chronic Obstructive Pulmonary Disease (COPD), Pneumonia Neurological Medical History: Denies: Seizures Endocrine Medical History: Reports: Diabetes Mellitus Type 2 Renal/ Medical History: Reports: End Stage Renal Disease - w/ kidney millan splant Musculoskeltal Medical History: Denies: Arthritis Psychiatric Medical History: Denies: Depression Hematology: Denies: Anemia Past Surgical History Past Surgical History: Reports: Cholecystectomy, Orthopedic Surgery - amputation x2 Left toes Denies: Hysterectomy, Pacemaker Social History Information Source: Patient, [facility] Records Lives with: Spouse/Significant other Smoking Status: Never Smoker Electronic Cigarette use?: No Frequency of Alcohol Use: None Hx Recreational Drug Use: No Drugs: None Hx Prescription Drug Abuse: No - Advance Directive Resuscitation Status: Full Code Family History Family History: Hypertension Parental Family History Reviewed: Yes Children Family History Reviewed: Yes Sibling(s) Family History Reviewed.: Yes Medication/Allergy Home Medications: Aspirin [Ecotrin 81 mg EC Tablet] 81 mg PO DAILY 04/20/12 Carvedilol [Coreg 6.25 mg Tablet] 3.125 mg PO Q12H 04/20/12 Cetirizine HCl [Zyrtec 10 mg Tablet] 10 mg PO DAILY PRN 04/20/12 Fenofibrate Nanocrystallized [Tricor] 54 mg PO QHS 04/20/12 Lubiprostone [Amitiza 24 Mcg Capsule] 24 mcg PO Q12H 04/20/12 Metoclopramide HCl [Reglan] 5 mg PO DAILY 04/20/12 Omeprazole [Prilosec 10 mg Capsule] 20 mg PO DAILY PRN 04/20/12 Promethazine HCl [Phenergan 25 mg Tablet] 12.5 mg PO Q6H PRN 04/20/12 Insulin Glargine,Hum.rec.anlog [Lantus] 30 units SUBCUT QHS 04/21/12 Insulin Lispro [Humalog] 0 units SUBCUT ASDIR PRN 04/21/12 Multivitamin [Daily Vitamin] 1 each PO DAILY 04/16/15 Mycophenolate Sodium [Myfortic 180 mg Tablet.dr] 180 mg PO Q12H 04/17/15 Prednisone 5 mg PO DAILY 04/17/15 Tacrolimus Anhydrous [Prograf 1 mg Capsule] 1 mg PO Q12H 04/17/15 Cinnamon Bark [Cinnamon Bark 500 mg Capsule] 1,000 mg PO DAILY 08/30/15 Cranberry [Cranberry 500 mg Capsule] 500 mg PO DAILY 08/30/15 Lorazepam [Ativan 1 mg Tablet] 1 mg PO Q12H PRN 08/30/15 Temazepam [Restoril] 30 mg PO QHS 08/30/15 Thiamine HCl [Vitamin B-1] 100 mg PO DAILY 08/30/15 Zinc 500 mg PO DAILY 08/30/15 Ascorbic Acid [Vitamin C 500 mg Tablet] 500 mg PO DAILY 10/04/15 Allergies/Adverse Reactions: azithromycin [From Zithromax] Adverse Reaction (Verified 12/22/15 16:17) codeine [Codeine] Adverse Reaction (Verified 12/22/15 16:17) Review of Systems Constitutional: PRESENT: as per HPI, fatigue, weakness. ABSENT: chills, fev er(s), headache(s), weight gain, weight loss Eyes: ABSENT: visual disturbances Ears: ABSENT: hearing changes Cardiovascular: ABSENT: chest pain, dyspnea on exertion, edema, orthropnea, palpitations Respiratory: ABSENT: cough, hemoptysis Gastrointestinal: PRESENT: as per HPI, constipation. ABSENT: abdominal pain, diarrhea, hematemesis, hematochezia, nausea, vomiting Genitourinary: ABSENT: dysuria, hematuria Musculoskeletal: ABSENT: joint swelling Integumentary: ABSENT: rash, wounds Neurological: ABSENT: abnormal gait, abnormal speech, confusion, dizziness, focal weakness, syncope Psychiatric: ABSENT: anxiety, depression, homidical ideation, suicidal ideation Endocrine: ABSENT: cold intolerance, heat intolerance, polydipsia, polyuria Hematologic/Lymphatic: ABSENT: easy bleeding, easy bruising Physical Exam Vital Signs: Temp Pulse Resp BP Pulse Ox 98.1 F 81 14 137/106 H 99 12/27/19 23:20 12/27/19 23:31 12/28/19 03:02 12/28/19 03:02 12/28/19 03:02 Intake & Output 12/26/19 12/27/19 12/28/19 11:59 11:59 11:59 Weight 84.368 kg General appearance: PRESENT: no acute distress, cooperative, well-developed, well-nourished Head exam: PRESENT: atraumatic, normocephalic Eye exam: PRESENT: conjunctiva pink, EOMI, PERRLA. ABSENT: scleral icterus Ear exam: PRESENT: normal external ear exam Mouth exam: PRESENT: moist, tongue midline Neck exam: ABSENT: carotid bruit, JVD, lymphadenopathy, thyromegaly Respiratory exam: PRESENT: clear to auscultation maggi. ABSENT: rales, rhonchi, wheezes Cardiovascular exam: PRESENT: RRR. ABSENT: diastolic murmur, rubs, systolic murmur Pulses: PRESENT: normal dorsalis pedis pul Vascular exam: PRESENT: normal capillary refill GI/Abdominal exam: PRESENT: normal bowel sounds, soft. ABSENT: distended, guarding, mass, organolmegaly, rebound, tenderness Rectal exam: PRESENT: deferred Extremities exam: PRESENT: full ROM. ABSENT: calf tenderness, clubbing, pedal edema Neurological exam: PRESENT: alert, awake, oriented to person, oriented to place, oriented to time, oriented to situation, CN II-XII grossly intact. ABSENT: motor sensory deficit Psychiatric exam: PRESENT: appropriate affect, normal mood. ABSENT: homicidal ideation, suicidal ideation Skin exam: PRESENT: dry, erythema, intact, warm, other - Left foot ulcer, no exudate or malodorous discharge. ABSENT: cyanosis, rash Results Laboratory Results: 12/27/19 23:48 12/27/19 23:48 02/26/20 02/26/20 02/27/20 23:48 23:48 01:35 WBC 5.2 RBC 4.31 Hgb 12.4 Hct 37.5 MCV 87 MCH 28.7 MCHC 33.0 RDW 15.0 H Plt Count 134 L Seg Neutrophils % 72.3 Sodium 138.5 Potassium 6.1 H* Chloride 111 H Carbon Dioxide 17 L Anion Gap 11 BUN 46 H Creatinine 1.28 H Est GFR ( Amer) 50 L Glucose 171 H Calcium 9.6 Total Bilirubin 0.6 AST 18 Alkaline Phosphatase 115 Total Protein 7.6 Albumin 3.9 Lipase 487.4 H Urine Color YELLOW Urine Appearance CLEAR Urine pH 5.0 Ur Specific [place] 1.017 Urine Protein 30 H Urine Glucose (UA) 50 H Urine Ketones NEGATIVE Urine Blood LARGE H Urine Nitrite NEGATIVE Ur Leukocyte Esterase NEGATIVE Urine WBC (Auto) 8 Urine RBC (Auto) 57 Assessment and Plan - Diagnosis (1) Hyperkalemia Is this a current diagnosis for this admission?: Yes Plan: Multifactorial secondary to dietary indiscretion, diabetes with metabolic acidosis and constipation. Follow-up chemistry following Kayexalate and lactulose. Education for dietary indiscretion. (2) Kidney transplant recipient Is this a current diagnosis for this admission?: Yes Plan: Resume outpatient medication regiment (3) Diabetes mellitus type II, uncontrolled Is this a current diagnosis for this admission?: Yes Plan: Outpatient regiment with Humalog sliding scale (4) Diabetic ulcer of left foot associated with secondary diabetes mellitus Is this a current diagnosis for this admission?: Yes Plan: At baseline, outpatient follow-up wound care clinic - Time Time Spent with patient: 25-34 minutes - Inpatient Certification Medical Necessity: Need Close Monitoring Due to Risk of Patient Decompensation
[2019-12-28] MEDS: HEPARIN SOD (PORCINE) 5,000 UNIT/ML 1 ML VIAL SUBCUT SCH ×3 (06:42→22:22)
[2019-12-28] MEDS ORDERED: INFLUENZA QUAD (6MOS+) 2019-20 VAC 0.5 ML SYR IM ONE (08:16)
[2019-12-28 08:48] LABS: ANION GAP 8 (5-19); BLOOD UREA NITROGEN 41 mg/dL (7-20); CALCIUM 10.1 mg/dL (8.4-10.2); CARBON DIOXIDE 21 mmol/L (22-30); CHLORIDE 113 mmol/L (98-107); GLUCOSE 163 mg/dL (75-110); POTASSIUM 5.5 mmol/L (3.6-5.0)
[2019-12-28] MEDS ORDERED: METOCLOPRAMIDE HCL 10 MG TABLET PO PRN (11:11)
[2019-12-28] MEDS ORDERED: CETIRIZINE 10 MG TABLET PO PRN (11:11)
--- NOTE | 2019-12-28 11:17 | Progress Note ---
Provider Note Provider Note: Patient seen by me and assessed today. Medication reconciliation performed. Orders reviewed. Chart reviewed. Continue with plan. Patient's hyperkalemia may have been partly secondary to recent Bactrim use. UTI seems to have cleared on repeat urinalysis. Hyperkalemia has improved after receiving Kayexalate ye and IV insulin. Will give his dose of Lasix IV 40 mg today. Resume patient's insulin regimen for diabetes. Continue to monitor potassium levels. Repeat EKG in the morning.
[2019-12-28] MEDS: INSULIN LISPRO 100 UNIT/ML 3 ML VIAL SUBCUT SCH ×4 (11:57→18:18)
[2019-12-28] MEDS ORDERED: FUROSEMIDE INJ/PF 40 MG/4 ML SDV IV ONE (12:00)
[2019-12-28] MEDS: CARVEDILOL 3.125 MG TABLET PO SCH ×2 (12:16→22:23)
[2019-12-28] MEDS: PREDNISONE 5 MG TABLET PO SCH (12:16)
[2019-12-28] MEDS ORDERED: INSULIN LISPRO 100 UNIT/ML 3 ML VIAL SUBCUT SCH (16:00)
[2019-12-28 18:25] LABS: ANION GAP 9 (5-19); BLOOD UREA NITROGEN 38 mg/dL (7-20); CALCIUM 10.2 mg/dL (8.4-10.2); CARBON DIOXIDE 24 mmol/L (22-30); CHLORIDE 108 mmol/L (98-107); GLUCOSE 107 mg/dL (75-110)
--- NOTE | 2019-12-28 19:41 | EKG REPORT ---
SEVERITY:- OTHERWISE NORMAL ECG - SINUS RHYTHM BORDERLINE LEFT AXIS DEVIATION : Confirmed by: Chrissy Pat MD 28-Dec-2019 19:39:02
[2019-12-28] MEDS ORDERED: MYCOPHENOLATE SODIUM 360 MG PO SCH (22:00)
[2019-12-28] MEDS ORDERED: (PENDING PHARMACY ID) (Mycophenolate Sodium 360 MG) PO SCH (22:00)
[2019-12-28] MEDS ORDERED: INSULIN GLARGINE,HUM.REC.ANLOG 1,000 UNIT/10 ML VIAL SUBCUT SCH (22:00)
[2019-12-28] MEDS: MYCOPHENOLATE SODIUM 180 MG PO SCH (22:24)
[2019-12-29 03:22] LABS: ANION GAP 11 (5-19); BLOOD UREA NITROGEN 41 mg/dL (7-20); CALCIUM 9.5 mg/dL (8.4-10.2); CARBON DIOXIDE 20 mmol/L (22-30); CHLORIDE 110 mmol/L (98-107); GLUCOSE 101 mg/dL (75-110); POTASSIUM 5.2 mmol/L (3.6-5.0)
[2019-12-29] MEDS: HEPARIN SOD (PORCINE) 5,000 UNIT/ML 1 ML VIAL SUBCUT SCH (06:56)
[2019-12-29] MEDS: NORMAL SALINE 1000 ML 1,000 ML IV PRN ×2 (06:57→11:29)
[2019-12-29] MEDS: INSULIN LISPRO 100 UNIT/ML 3 ML VIAL SUBCUT SCH ×4 (08:10→13:43)
[2019-12-29] MEDS ORDERED: CARVEDILOL 3.125 MG TABLET PO SCH (10:00)
[2019-12-29] MEDS ORDERED: CARVEDILOL 6.25 MG TABLET PO SCH (10:00)
[2019-12-29] MEDS ORDERED: ASPIRIN 81 MG TABLET, ENT COATED PO SCH (10:00)
[2019-12-29] MEDS ORDERED: MULTIVITAMIN TABLET PO SCH (10:00)
[2019-12-29] MEDS ORDERED: CHLORTHALIDONE 25 MG TABLET PO SCH (10:00)
[2019-12-29] MEDS: TACROLIMUS ANHYDROUS 1 MG CAPSULE PO SCH ×2 (10:18→10:31)
[2019-12-29] MEDS: MYCOPHENOLATE SODIUM 180 MG PO SCH (10:53)
[2019-12-29] MEDS: PREDNISONE 5 MG TABLET PO SCH (10:56)
[2019-12-29 11:51] LABS: ANION GAP 11 (5-19); BLOOD UREA NITROGEN 38 mg/dL (7-20); CALCIUM 9.6 mg/dL (8.4-10.2); CARBON DIOXIDE 19 mmol/L (22-30); CHLORIDE 110 mmol/L (98-107); GLUCOSE 129 mg/dL (75-110); POTASSIUM 4.7 mmol/L (3.6-5.0)
--- NOTE | 2019-12-29 13:54 | EKG REPORT ---
SEVERITY:- ABNORMAL ECG - SINUS RHYTHM LEFT ANTERIOR FASCICULAR BLOCK CONSIDER LEFT VENTRICULAR HYPERTROPHY : Confirmed by: Chrissy Pat MD 29-Dec-2019 13:52:44
--- NOTE | 2019-12-29 14:16 | PDOC DISCHARGE SUMMARY ---
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 Patient received calcium gluconate, Kayexalate and insulin. She later received a dose of Lasix. Her potassium levels subsequently improved and has normalized today. Creatinine is 1.4 which may not be significant enough to cause such hyperkalemia. Patient did admit to recently being treated with Bactrim a few days before presentation. Bactrim is notorious for hyperkalemia may have played a role in this there is also the possibility of constipation playing a role in patient's hyperkalemia. At this time, potassium levels have normalized and patient is being discharged home with follow-up BMP in 1 week with her career technical education teacher/primary care provider. Patient's Coreg dose has also been increased given high blood pressures. However patient tells me that her blood pressure reading is always high in the office or in the clinical setting because she has whitecoat hypertension and is always normal with systolic in the 120s when she is at home. Patient states that she checks her blood pressure diligently and after extensive discussion with patient we have come to the shared decision of refraining from starting patient on chlorthalidone but have urged her to follow-up with her career technical education teacher to discuss if she would need to be on another antihypertensive and to closely monitor her BP at home. - Additional Information Resuscitation Status: Full Code Discharge Diet: Diabetic, Other (Comments) - Low potassium diet Discharge Activity: Activity As Tolerated Referrals: BRIA VALENCIA MD [Primary Care Provider] - Follow up as needed (no answer at office, office closed at 12, please call wednesday for follow up appointment) Prescriptions: Carvedilol [Coreg 6.25 mg Tablet] 6.25 mg PO Q12 30 Days tablet Home Medications: Aspirin [Ecotrin] 81 mg PO DAILY 12/28/19 Cetirizine HCl [Zyrtec 10 mg Tablet] 10 mg PO DAILYP PRN 12/28/19 Insulin Glargine,Hum.rec.anlog [Lantus Insulin 100 Unit/1 ml 10 ml] 32 unit SUBCUT QHS 12/28/19 Insulin Lispro [Humalog Insulin (Lispro) 100 unit/mL] 7 unit SUBCUT BIDACBL 12/28/19 Insulin Lispro [Humalog Insulin (Lispro) 100 unit/mL] 12 unit SUBCUT ACSUPPER 12/28/19 Metoclopramide HCl [Reglan] 5 mg PO BIDP PRN 12/28/19 Multivitamin [Tab-A-Mercy (Multiple Vitamin) Tablet] 1 tab PO DAILY 12/28/19 Mycophenolate Sodium [Myfortic 360 mg Tablet.dr] 360 mg PO Q12 12/28/19 Omeprazole 20 mg PO DAILYP PRN 12/28/19 Prednisone [Deltasone 5 mg Tablet] 5 mg PO DAILY 12/28/19 Tacrolimus Anhydrous [Prograf 1 mg Capsule] 1 mg PO Q12 12/28/19 Temazepam [Restoril 15 mg Capsule] 30 mg PO QHS 12/28/19 Carvedilol [Coreg 6.25 mg Tablet] 6.25 mg PO Q12 30 Days tablet 12/29/19 History of Present Illiness History of Present Illness: HETAL BERMAN is a 69 year old female with a past medical history of renal transplant 2011, CKD 3, recurrent hyperkalemia, peripheral vascular disease, diabetes, left toe amputations and diabetic chronic ulcer. She presents with 5 or 6 days of generalized weakness and fatigue prompting evaluation the emergency department where she is found to have metabolic acidosis with hyperkalemia of 6.1 complicated by peaked T waves. She is ordered calcium gluconate, glucose, insulin, bicarb and Kayexalate then referred to the hospitalist for admission. Patient admits to dietary indiscretion but denies palpitations chest pain nausea vomiting or diaphoresis. She also admits to prolonged constipation. Physical Exam Vital Signs: Temp Pulse Resp BP Pulse Ox 98.3 F 78 18 173/74 H 100 12/29/19 11:43 12/29/19 11:43 12/29/19 11:43 12/29/19 11:43 12/29/19 11:43 Intake & Output 12/28/19 12/29/19 12/30/19 06:59 06:59 06:59 Intake Total 370 1000 Output Total 901 Balance -531 1000 Weight 84.368 kg 89.7 kg General appearance: PRESENT: no acute distress, cooperative Neck exam: ABSENT: JVD Respiratory exam: PRESENT: clear to auscultation maggi Neurological exam: PRESENT: alert, awake, oriented to person, oriented to place, oriented to time, oriented to situation Results Laboratory Results: WBC 5.2 10^3/uL (4.0-10.5) 12/27/19 23:48 RBC 4.31 10^6/uL (3.72-5.28) 12/27/19 23:48 Hgb 12.4 g/dL (12.0-15.5) 12/27/19 23:48 Hct 37.5 % (36.0-47.0) 12/27/19 23:48 MCV 87 fl (80-97) 12/27/19 23:48 MCH 28.7 pg (27.0-33.4) 12/27/19 23:48 MCHC 33.0 g/dL (32.0-36.0) 12/27/19 23:48 RDW 15.0 % (11.5-14.0) H 12/27/19 23:48 Plt Count 134 10^3/uL (150-450) L 12/27/19 23:48 Lymph % (Auto) 14.4 % (13-45) 12/27/19 23:48 [place] % (Auto) 11.7 % (3-13) 12/27/19 23:48 Eos % (Auto) 1.0 % (0-6) 12/27/19 23:48 Baso % (Auto) 0.6 % (0-2) 12/27/19 23:48 Absolute Neuts (auto) 3.7 10^3/uL (1.7-8.2) 12/27/19 23:48 Absolute Lymphs (auto) 0.7 10^3/uL (0.5-4.7) 12/27/19 23:48 Absolute Monos (auto) 0.6 10^3/uL (0.1-1.4) 12/27/19 23:48 Absolute Eos (auto) 0.1 10^3/uL (0.0-0.6) 12/27/19 23:48 Absolute Basos (auto) 0.0 10^3/uL (0.0-0.2) 12/27/19 23:48 Seg Neutrophils % 72.3 % (42-78) 12/27/19 23:48 Sodium 140.3 mmol/L (137-145) 12/29/19 10:35 Potassium 4.7 mmol/L (3.6-5.0) 12/29/19 10:35 Chloride 110 mmol/L (98-107) H 12/29/19 10:35 Carbon Dioxide 19 mmol/L (22-30) L 12/29/19 10:35 Anion Gap 11 (5-19) 12/29/19 10:35 BUN 38 mg/dL (7-20) H 12/29/19 10:35 Creatinine 1.35 mg/dL (0.52-1.25) H 12/29/19 10:35 Est GFR ( Amer) 47 (>60) L 12/29/19 10:35 Est GFR (MDRD) Non-Af 39 (>60) L 12/29/19 10:35 Glucose 129 mg/dL (75-110) H 12/29/19 10:35 POC Glucose 139 mg/dL (70-110) H 12/29/19 10:44 Calcium 9.6 mg/dL (8.4-10.2) 12/29/19 10:35 Total Bilirubin 0.6 mg/dL (0.2-1.3) 12/27/19 23:48 Direct Bilirubin 0.3 mg/dL (0.0-0.4) 12/27/19 23:48 Neonat Total Bilirubin Not Reportable 12/27/19 23:48 Neonat Direct Bilirubin Not Reportable 12/27/19 23:48 Neonat Indirect Bili Not Reportable 12/27/19 23:48 AST 18 U/L (14-36) 12/27/19 23:48 ALT 16 U/L (<35) 12/27/19 23:48 Alkaline Phosphatase 115 U/L (38-126) 12/27/19 23:48 Total Protein 7.6 g/dL (6.3-8.2) 12/27/19 23:48 Albumin 3.9 g/dL (3.5-5.0) 12/27/19 23:48 Lipase 487.4 U/L (23-300) H 12/27/19 23:48 Urine Color YELLOW 12/28/19 01:35 Urine Appearance CLEAR 12/28/19 01:35 Urine pH 5.0 (5.0-9.0) 12/28/19 01:35 Ur Specific [place] 1.017 12/28/19 01:35 Urine Protein 30 mg/dL (NEGATIVE) H 12/28/19 01:35 Urine Glucose (UA) 50 mg/dL (NEGATIVE) H 12/28/19 01:35 Urine Ketones NEGATIVE mg/dL (NEGATIVE) 12/28/19 01:35 Urine Blood LARGE (NEGATIVE) H 12/28/19 01:35 Urine Nitrite NEGATIVE (NEGATIVE) 12/28/19 01:35 Urine Bilirubin NEGATIVE (NEGATIVE) 12/28/19 01:35 Urine Urobilinogen NEGATIVE mg/dL (<2.0) 12/28/19 01:35 Ur Leukocyte Esterase NEGATIVE (NEGATIVE) 12/28/19 01:35 Urine WBC (Auto) 8 /HPF 12/28/19 01:35 Urine RBC (Auto) 57 /HPF 12/28/19 01:35 Urine Mucus (Auto) RARE /LPF 12/28/19 01:35 Urine Ascorbic Acid NEGATIVE (NEGATIVE) 12/28/19 01:35 Plan Time Spent: Less than 30 Minutes Stroke Is this a Stroke Patient?: No Acute Heart Failure - Is this a Heart Failure Patient?: No
[2019-12-29 14:33] VITALS: BP 156/64
== END 2019-12-29 15:00 | disposition home or self-care (01) | DRG 641 ==
LOC: ER 23:20 → EH 12-28 01:52 → 4W 12-28 16:48
PROVIDERS: ADMIT Internal Medicine; ATTEND Internal Medicine
DX: E87.5 Hyperkalemia (principal); Z94.0 Kidney transplant status; T36.8X5A Adverse effect of other systemic antibiotics, initial encounter; Y92.018 Other place in single-family (private) house as the place of occurrence of the external cause; E11.622 Type 2 diabetes mellitus with other skin ulcer; L98.499 Non-pressure chronic ulcer of skin of other sites with unspecified severity; E87.2 Acidosis; I25.10 Atherosclerotic heart disease of native coronary artery without angina pectoris; E78.00 Pure hypercholesterolemia, unspecified; I10 Essential (primary) hypertension; R53.1 Weakness; I73.9 Peripheral vascular disease, unspecified; K59.00 Constipation, unspecified; Z89.422 Acquired absence of other left toe(s); Z79.82 Long term (current) use of aspirin; Z79.4 Long term (current) use of insulin; Z79.52 Long term (current) use of systemic steroids; Z79.899 Other long term (current) drug therapy
CPT/HCPCS: 36415; 80048; 80053; 81001; 82962; 83690; 85025; 93005; 93010; 96374; 96375; 99291; J0610; J1644; J1815; J1940; J3490; J7030; J7507; J7512

== ENCOUNTER → 2020-01-10 | Outpatient (CLI) | payer MEDICARE, BC ==
[2020-01-10 15:10] LABS: ANION GAP 9 (5-19); BLOOD UREA NITROGEN 36 mg/dL (7-20); CALCIUM 10.5 mg/dL (8.4-10.2); CARBON DIOXIDE 26 mmol/L (22-30); CHLORIDE 105 mmol/L (98-107); GLUCOSE 96 mg/dL (75-110); POTASSIUM 4.2 mmol/L (3.6-5.0)
== END ==
LOC: OD 13:31
PROVIDERS: ATTEND Internal Medicine
DX: E87.6 Hypokalemia (principal); E11.22 Type 2 diabetes mellitus with diabetic chronic kidney disease; N18.3 Chronic kidney disease, stage 3 (moderate)
CPT/HCPCS: 36415; 80048; 83735

== ENCOUNTER → 2020-01-10 | Outpatient (CLI) | payer MEDICARE, BC ==
[2020-01-10 14:32] LABS: ABSOLUTE EOSINOPHILS # (AUTO) 0.1 10^3/uL (0.0-0.6); ABSOLUTE LYMPHOCYTES (AUTO) 0.6 10^3/uL (0.5-4.7); ABSOLUTE MONOCYTES (AUTO) 0.5 10^3/uL (0.1-1.4); BASOPHILS % (AUTO) 0.5 % (0-2); EOSINOPHILS % (AUTO) 1.7 % (0-6); HEMATOCRIT 36.4 % (36.0-47.0); HEMOGLOBIN 12.4 g/dL (12.0-15.5); LYMPHOCYTES % (AUTO) 10.9 % (13-45); MEAN CORPUSCULAR HEMOGLOBIN 29.3 pg (27.0-33.4); MEAN CORPUSCULAR HGB CONC 34.2 g/dL (32.0-36.0); MEAN CORPUSCULAR VOLUME 86 fl (80-97); MONOCYTES % (AUTO) 9.1 % (3-13); PLATELET COUNT 130 10^3/uL (150-450); RED BLOOD COUNT 4.25 10^6/uL (3.72-5.28); RED CELL DISTRIBUTION WIDTH 14.8 % (11.5-14.0); SEGMENTED NEUTROPHILS % (AUTO) 77.8 % (42-78); TOTAL CELLS COUNTED % (AUTO) 100 %; WHITE BLOOD COUNT 5.1 10^3/uL (4.0-10.5)
[2020-01-10 15:02] LABS: ALKALINE PHOSPHATASE 84 U/L (38-126); ANION GAP 9 (5-19); ASPARTATE AMINO TRANSFERASE 19 U/L (14-36); BILIRUBIN,DIRECT 0.3 mg/dL (0.0-0.4); BILIRUBIN,TOTAL 0.9 mg/dL (0.2-1.3); BLOOD UREA NITROGEN 36 mg/dL (7-20); C-REACTIVE PROTEIN 9.8 mg/L (<10.0); CALCIUM 10.5 mg/dL (8.4-10.2); CARBON DIOXIDE 26 mmol/L (22-30); CHLORIDE 105 mmol/L (98-107); GLUCOSE 96 mg/dL (75-110); POTASSIUM 4.2 mmol/L (3.6-5.0); TOTAL PROTEIN 7.6 g/dL (6.3-8.2)
[2020-01-10 15:27] LABS: ERYTHROCYTE SEDIMENTATION RATE 17 mm/hr (0-30)
== END ==
LOC: WC 13:36
PROVIDERS: ATTEND Preventive Medicine Undersea and Hyperbaric Medicine
DX: L97.522 Non-pressure chronic ulcer of other part of left foot with fat layer exposed (principal)
CPT/HCPCS: 36415; 85025; 85652; 86140; 87070

== ENCOUNTER → 2020-03-21 | Outpatient (CLI) | payer MEDICARE, BC ==
[2020-03-21 15:21] LABS: ABSOLUTE EOSINOPHILS # (AUTO) 0.1 10^3/uL (0.0-0.6); ABSOLUTE LYMPHOCYTES (AUTO) 0.7 10^3/uL (0.5-4.7); ABSOLUTE MONOCYTES (AUTO) 0.5 10^3/uL (0.1-1.4); BASOPHILS % (AUTO) 0.8 % (0-2); EOSINOPHILS % (AUTO) 1.4 % (0-6); HEMATOCRIT 37.5 % (36.0-47.0); HEMOGLOBIN 12.8 g/dL (12.0-15.5); LYMPHOCYTES % (AUTO) 13.4 % (13-45); MEAN CORPUSCULAR HEMOGLOBIN 29.1 pg (27.0-33.4); MEAN CORPUSCULAR HGB CONC 34.1 g/dL (32.0-36.0); MEAN CORPUSCULAR VOLUME 86 fl (80-97); MONOCYTES % (AUTO) 9.5 % (3-13); PLATELET COUNT 155 10^3/uL (150-450); RED BLOOD COUNT 4.39 10^6/uL (3.72-5.28); RED CELL DISTRIBUTION WIDTH 14.2 % (11.5-14.0); SEGMENTED NEUTROPHILS % (AUTO) 74.9 % (42-78); TOTAL CELLS COUNTED % (AUTO) 100 %; WHITE BLOOD COUNT 5.3 10^3/uL (4.0-10.5)
[2020-03-21 15:44] LABS: ALBUMIN 4.4 g/dL (3.5-5.0); ALKALINE PHOSPHATASE 86 U/L (38-126); ANION GAP 10 (5-19); ASPARTATE AMINO TRANSFERASE 20 U/L (14-36); BILIRUBIN,DIRECT 0.1 mg/dL (0.0-0.4); BILIRUBIN,TOTAL 0.9 mg/dL (0.2-1.3); BLOOD UREA NITROGEN 30 mg/dL (7-20); CALCIUM 10.1 mg/dL (8.4-10.2); CARBON DIOXIDE 23 mmol/L (22-30); CHLORIDE 107 mmol/L (98-107); GLUCOSE 123 mg/dL (75-110); POTASSIUM 4.5 mmol/L (3.6-5.0); TOTAL PROTEIN 7.9 g/dL (6.3-8.2)
[2020-03-21 15:48] LABS: C-REACTIVE PROTEIN < 5.0 mg/L (<10.0)
--- NOTE | 2020-03-21 16:06 | RADIOLOGY REPORT (SQ) ---
EXAM DESCRIPTION: FOOT LEFT COMPLETE IMAGES COMPLETED DATE/TIME: 03/21/2020 3:02 pm REASON FOR STUDY: NON-PRS CHRONIC ULCER OTH PRT LEFT FOOT W FAT LAYER EXPOSED L97.522 NON-PRS CHRON IC ULCER OTH PRT LEFT FOOT W FAT LAYER E11.621 TYPE 2 DIABETES MELLITUS WITH FOOT ULCER COMPARISON: 09/12/2019. NUMBER OF VIEWS: Three views. TECHNIQUE: AP, lateral and oblique radiographic images acquired of the left foot. LIMITATIONS: None. FINDINGS: MINERALIZATION: Normal. BONES: Stable surgical changes with amputation at the mid tarsal level. No acute fracture or disloca tion. No cortical destruction. Large heel spur. No worrisome bone lesions. JOINTS: No effusions. SOFT TISSUES: No soft tissue swelling. No foreign body. OTHER: No other significant finding. IMPRESSION: STABLE SURGICAL CHANGES. LARGE HEEL SPUR. NO ACUTE FINDINGS. TECHNICAL DOCUMENTATION: JOB ID: [id number] [employer]- All Rights Reserved Reading location - IP/workstation name: [email or web address]
== END ==
LOC: WC 13:56
PROVIDERS: ATTEND Preventive Medicine Undersea and Hyperbaric Medicine
DX: E11.621 Type 2 diabetes mellitus with foot ulcer (principal); L97.522 Non-pressure chronic ulcer of other part of left foot with fat layer exposed
CPT/HCPCS: 36415; 80053; 83036; 85025; 85652; 86140

== ENCOUNTER 2020-03-23 20:23 | Emergency (ER) | payer MEDICARE, BC ==
--- NOTE | 2020-03-23 21:13 | ER Document Report ---
Entered by FLORI CROWDER SCRIBE 03/23/202052 Acting as scribe for:AKI PELAEZ IV, MD ED Fall - General Chief Complaint: Fall Stated Complaint: WEAKNESS/FALL Time Seen by Provider: 03/23/20 20:36 Primary Care Provider: SERGEY CHILDRESS DPM [ACTIVE STAFF] - Follow up as needed Mode of Arrival: Medic Information source: Patient Notes: This 69 year old female patient brought in by EMS presents to the ED today with complaints of a fall that occurred just prior to arrival. Patient states that she was leaving the bathroom when she suddenly became weak and her "feet gave out." She reports that she fell and slid down the wall with the help of her easing her fall. Patient denies hitting her head. Patient notes that a similar occurrence happened in December and at that time her potassium was elevated. She reports a history of UTIs and states that she has had some urinary frequency, but denies any burning. TRAVEL OUTSIDE OF THE [place] IN LAST 30 DAYS: No - Related data Allergies/Adverse Reactions: azithromycin [From Zithromax] Adverse Reaction (Verified 12/22/15 16:17) codeine [Codeine] Adverse Reaction (Verified 12/22/15 16:17) Past Medical History - General Information source: Patient - Social History Smoking Status: Never Smoker Cigarette use (# per day): No Chew tobacco use (# tins/day): No Smoking Education Provided: No Frequency of alcohol use: None Drug Abuse: None Lives with: Family Family History: Reviewed & Not Pertinent, Hypertension Patient has suicidal ideation: No Patient has homicidal ideation: No - Past Medical History Cardiac Medical History: Reports: Hx Coronary Artery Disease, Hx Hypercholesterolemia, Hx Hypertension, Hx Peripheral Vascular Disease Endocrine Medical History: Reports: Hx Diabetes Mellitus Type 2 Renal/ Medical History: Reports: Hx End Stage Renal Disease - w/ kidney transplant Skin Medical History: Reports Hx Cellulitis Past Surgical History: Reports: Hx Cholecystectomy, Hx Kidney (Renal Surgery) - transplant, Hx Orthopedic Surgery - amputation x2 Left toes - Immunizations Hx Diphtheria, Pertussis, Tetanus Vaccination: Yes Hx Pneumococcal Vaccination: 11/01/09 Review of Systems - Review of Systems Constitutional: See HPI, Weakness EENT: No symptoms reported Cardiovascular: No symptoms reported Respiratory: No symptoms reported Gastrointestinal: No symptoms reported Genitourinary: See HPI, Frequency. denies: Burning Female Genitourinary: No symptoms reported Musculoskeletal: No symptoms reported Skin: No symptoms reported Hematologic/Lymphatic: No symptoms reported Neurological/Psychological: No symptoms reported -: Yes All other systems reviewed and negative Physical Exam - Vital signs Vitals: Temp 98.6 F 03/23/20 20:23 - General General appearance: Alert In distress: None - HEENT Head: Normocephalic, Atraumatic Eyes: Normal Pupils: PERRL - Respiratory Respiratory status: No respiratory distress Chest status: Nontender Breath sounds: Normal Chest palpation: Normal - Cardiovascular Rhythm: Regular Heart sounds: Normal auscultation Murmur: No Friction rub: No Gallop: None auscultated - Abdominal Inspection: Normal Distension: No distension Bowel sounds: Normal Tenderness: Nontender - Abdomen soft Organomegaly: No organomegaly - Back Back: Normal, Nontender - Extremities General upper extremity: Normal inspection Foot: Other - Left foot appears bandaged and status post multiple toe amputation - Neurological Neuro grossly intact: Yes Orientation: AAOx4 - Psychological Associated symptoms: Normal affect, Normal mood - Skin Skin Temperature: Warm Skin Moisture: Dry Skin Color: Normal Course - Re-evaluation Re-evalutation: 03/23/20 23:42 Patient states she is feeling better at this time. Results of ED MSE discussed with patient. All questions were answered prior to discharge. Emergency signs and symptoms, reasons to return to the emergency department discussed with patient. Blood pressure at time of discharge is 162/69 - Vital Signs Vital signs: Temp Pulse Resp BP Pulse Ox 98.6 F 18 162/69 H 99 03/23/20 20:23 03/23/20 23:01 03/23/20 23:01 03/23/20 23:01 - Laboratory Result Diagrams: 03/23/20 20:35 03/23/20 20:35 Laboratory results interpreted by me: 03/23/20 03/23/20 03/23/20 20:35 20:35 21:32 RDW 14.2 H Plt Count 147 L BUN 32 H Creatinine 1.38 H Est GFR ( Amer) 46 L Est GFR (MDRD) Non-Af 38 L Glucose 142 H Urine Protein 100 H Urine Blood SMALL H - Diagnostic Test Radiology reviewed: Reports reviewed - EKG Interpretation by Me Additional EKG results interpreted by me: 03/23/20 23:43 EKG obtained on 03/23/2020 at 2141 hrs. was interpreted by this MD. Findings: Normal sinus rhythm, rate 81, left axis deviation is present, P waves preceding QRS complexes, QRS complexes appear narrow, there are no obvious patterns of ST segment elevation or depression present to suggest acute myocardial ischemia or infarction. Impression normal sinus rhythm with LAD and nonspecific ST segments. Discharge - Discharge Clinical Impression: Dehydration Condition: Good Disposition: HOME, SELF-CARE Additional Instructions: Return to the Emergency Department without delay if any worse. HOME CARE INSTRUCTIONS & INFORMATION: Thank you for choosing us for your medical needs. We hope you're satisfied with the care you received. After you leave, you must properly care for your problem and, at the same time, observe its progress. Any condition can change. Some illnesses can change rapidly over hours or days. If your condition worsens, return to the Emergency Department or see your physician promptly. ABOUT YOUR X-RAYS AND EKG'S: If you had an EKG or X-rays taken, they have been read by the Emergency Physician. The X-rays and EKG's will also be read by a Radiologist or Produce Department Manager within 24 hours. If discrepancies are noted, you will be notified by telephone. Please be certain the ED has a correct telephone number & address where you can be reached. Also, realize that some fractures or abnormalities do not show up on initial X-rays. If your symptoms continue, see your physician. ABOUT YOUR LABORATORY TEST: If you had laboratory tests, the results have been reviewed by the Emergency Physician. Some test results (for example cultures) may not be available for several days. You will be contacted if any test result shows you need additional treatment. Please be certain the ED has a correct telephone number and address where you can be reached. ABOUT YOUR MEDICATIONS: You will receive instructions on how to take your medicine on the prescription label you receive. Additional information may be provided by the Pharmacy. If you have questions afterwards, call the ED for clarification or further instructions. Some prescribed medications may cause drowsiness. Do not perform tasks such as driving a car or operating machinery without consulting your Pharmacist. If you feel you need a refill of pain medication, your condition will need re-evaluation. Please do not call for a refill of any medication. ABOUT YOUR SIGNATURE: Signature of this document acknowledges to followin. Understanding that you received emergency treatment and that you may be released before al medical problems are known or treated. Please be certain the ED has a correct phone number & address where you can be reached. 2. Acknowledgement that you will arrange for follow-up care as recommended. 3. Authorization for the Emergency Physician to provide information to your follow-up Physician in order to maximize your care. AT ANY TIME, IF YOUR SYMPTOMS CHANGE SIGNIFICANTLY OR WORSEN OR YOU DEVELOP NEW SYMPTOMS, RETURN TO THE EMERGENCY DEPARTMENT IMMEDIATELY FOR RE-EVALUATION. OUR GOAL IS TO PROVIDE EXCELLENT MEDICAL CARE! WE HOPE THAT WE HAVE MET YOUR EXPECTATIONS DURING YOUR EMERGENCY DEPARTMENT VISIT AND THAT YOU FEEL YOU HAVE RECEIVED EXCELLENT CARE! Dehydration Dehydration can result from vomiting or diarrhea, fever, or decreased intake of fluids. If severe, hospitalization and intravenous fluids may be required. Most cases are treated at home with fluids by mouth. For the next 24 hours, drink lots of clear fluids. In mild cases, this can be soda pop or sports drinks. For more severe dehydration, the doctor may recommend special fluids such as Pedialyte or Lytren. Try to get three liters (3 quarts) of fluid per day. If vomiting occurs, continue to drink the fluids frequently (every 15 to 20 minutes), but in small amounts (one or two ounces). Depending on the type of dehydration, the doctor may prescribe antinausea medicine or potassium replacements. Call the doctor or return for re-examination if you become progressively weak, vomit repeatedly, or have other new symptoms. Referrals: SERGEY CHILDRESS DPM [ACTIVE STAFF] - Follow up as needed I personally performed the services described in the documentation, reviewed and edited the documentation which was dictated to the scribe in my presence, and it accurately records my words and actions.
[2020-03-23] MEDS ORDERED: CARVEDILOL 3.125 MG TABLET PO ONE (21:43)
[2020-03-23] MEDS ORDERED: PREDNISONE 20 MG TABLET PO ONE (21:44)
--- NOTE | 2020-03-23 21:44 | EKG REPORT ---
SEVERITY:- ABNORMAL ECG - SINUS RHYTHM LEFT AXIS DEVIATION PROBABLE LEFT VENTRICULAR HYPERTROPHY : Confirmed by: Chrissy Pat MD 23-Mar-2020 21:43:20
[2020-03-23 21:51] LABS: ALBUMIN 4.3 g/dL (3.5-5.0); ALKALINE PHOSPHATASE 90 U/L (38-126); ANION GAP 6 (5-19); ASPARTATE AMINO TRANSFERASE 21 U/L (14-36); BILIRUBIN,TOTAL 0.7 mg/dL (0.2-1.3); BLOOD UREA NITROGEN 32 mg/dL (7-20); CALCIUM 9.8 mg/dL (8.4-10.2); CARBON DIOXIDE 27 mmol/L (22-30); CHLORIDE 107 mmol/L (98-107); GLUCOSE 142 mg/dL (75-110); POTASSIUM 4.5 mmol/L (3.6-5.0); TOTAL PROTEIN 7.8 g/dL (6.3-8.2)
[2020-03-23] MEDS ORDERED: ONDANSETRON HCL INJ/PF 4 MG/2 ML SDV IV ONE (21:56)
[2020-03-23 21:58] LABS: APPEARANCE,URINE CLEAR; BILIRUBIN,URINE NEGATIVE (NEGATIVE); COLOR,URINE YELLOW; GLUCOSE, URINE NEGATIVE (NEGATIVE); KETONES,URINE NEGATIVE (NEGATIVE); PROTEIN,URINE 100 mg/dL (NEGATIVE); URINE SPECIFIC GRAVITY 1.015; UROBILINOGEN,URINE NEGATIVE mg/dL (<2.0)
[2020-03-23] MEDS ORDERED: NORMAL SALINE 500 ML IV ONE (22:12)
[2020-03-23 23:03] LABS: ABSOLUTE EOSINOPHILS # (AUTO) 0.1 10^3/uL (0.0-0.6); ABSOLUTE LYMPHOCYTES (AUTO) 0.8 10^3/uL (0.5-4.7); ABSOLUTE MONOCYTES (AUTO) 0.6 10^3/uL (0.1-1.4); ABSOLUTE NEUT (AUTO) 3.2 10^3/uL (1.7-8.2); BASOPHILS % (AUTO) 0.7 % (0-2); EOSINOPHILS % (AUTO) 2.5 % (0-6); HEMATOCRIT 38.2 % (36.0-47.0); HEMOGLOBIN 12.9 g/dL (12.0-15.5); LYMPHOCYTES % (AUTO) 16.9 % (13-45); MEAN CORPUSCULAR HEMOGLOBIN 29.1 pg (27.0-33.4); MEAN CORPUSCULAR HGB CONC 33.8 g/dL (32.0-36.0); MEAN CORPUSCULAR VOLUME 86 fl (80-97); MONOCYTES % (AUTO) 11.8 % (3-13); PLATELET COUNT 147 10^3/uL (150-450); RED BLOOD COUNT 4.44 10^6/uL (3.72-5.28); RED CELL DISTRIBUTION WIDTH 14.2 % (11.5-14.0); SEGMENTED NEUTROPHILS % (AUTO) 68.1 % (42-78); TOTAL CELLS COUNTED % (AUTO) 100 %; WHITE BLOOD COUNT 4.8 10^3/uL (4.0-10.5)
--- NOTE | 2020-03-23 23:26 | RADIOLOGY REPORT (SQ) ---
CT HEAD WITHOUT IV CONTRAST HISTORY: Leg weakness. COMPARISON: 04/25/2015 TECHNIQUE: CT scan of the brain was performed without IV contrast. This exam was performed according to our departmental dose-optimization program, which includes automated exposure control, adjustment of the mA and/or kV according to patient size and/or use of iterative reconstruction technique. FINDINGS: There are scattered areas of hypoattenuation within the periventricular white matter, which likely represent chronic microvascular ischemia. No evidence of acute infarction, intracranial hemorrhage, extra-axial fluid collection, or midline shift. No air-fluid levels are seen in the paranasal sinuses to suggest acute sinusitis. No depressed skull fracture. IMPRESSION: 1. No acute intracranial findings. 2. Senescent changes with chronic microvascular ischemia.
[2020-03-23 23:52] VITALS: BP 165/73
== END 2020-03-24 00:29 | disposition home or self-care (01) ==
LOC: ER 20:23
DX: E86.0 Dehydration (principal); R53.1 Weakness; R35.0 Frequency of micturition; I25.10 Atherosclerotic heart disease of native coronary artery without angina pectoris; I10 Essential (primary) hypertension; E11.51 Type 2 diabetes mellitus with diabetic peripheral angiopathy without gangrene; Z87.440 Personal history of urinary (tract) infections; Z94.0 Kidney transplant status; Z89.422 Acquired absence of other left toe(s)
CPT/HCPCS: 93005; 99285; 96361; 96374; 36415; 83735; 85025; 80053; 81001; 70450; 93010; A9270 ×2; J2405; J7040; J7512

== ENCOUNTER → 2020-04-01 | Outpatient (CLI) | payer MEDICARE, BC ==
--- NOTE | 2020-04-01 18:46 | RADIOLOGY REPORT (SQ) ---
EXAM DESCRIPTION: ARTERIAL LOWER EXTREM BILAT IMAGES COMPLETED DATE/TIME: 04/01/2020 4:39 pm REASON FOR STUDY: LT FOOT ULCER L97.222 NON-PRESSURE CHRONIC ULCER OF LEFT CALF W FAT LAYER COMPARISON: 06/27/2018 TECHNIQUE: Dynamic and static jama scale and color images acquired of the lower extremity arteries. Additional selected spectral images recorded. ABIs recorded. LIMITATIONS: None. FINDINGS: RIGHT LEG: ABIS: Cannot be calculated due to calcified vessels. INFLOW ARTERIES: Normal, no obstruction evident. FEMORAL ARTERIES:Multiphasic waveforms. Normal, no velocity elevation to suggest focal stenosis. Norm al color Doppler evaluation. No aneurysm. POPLITEAL ARTERY:Multiphasic waveforms. Normal, no velocity elevation to suggest focal stenosis. Norm al color Doppler evaluation. No aneurysm. PATENT TIBIOPERONEAL TRUNK AND 3 VESSEL RUNOFF: Tibioperoneal trunk is patent. Peroneal artery is oc cluded. Posterior tibial and anterior tibial arteries demonstrate biphasic waveforms. TBI: Not performed. OTHER: No other significant finding. LEFT LEG: ABIS: Cannot be calculated due to calcified vessels. INFLOW ARTERIES: Normal, no obstruction evident. FEMORAL ARTERIES:Multiphasic waveforms. Normal, no velocity elevation to suggest focal stenosis. Norm al color Doppler evaluation. No aneurysm. POPLITEAL ARTERY:Multiphasic waveforms. Normal, no velocity elevation to suggest focal stenosis. Norm al color Doppler evaluation. No aneurysm. PATENT TIBIOPERONEAL TRUNK AND 3 VESSEL RUNOFF: Patent tibioperoneal trunk with biphasic runoff in th e anterior tibial and posterior tibial artery. There is segmental disease in the anterior tibial art valerie. Probable occlusion in the mid calf. TBI: Not performed. OTHER: No other significant finding. 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 ABIs cannot be calculated sec ondary to calcified infrapopliteal vessels. COMMENT: [facility] NORMAL: Greater than 1.0 MINIMAL DISEASE: 0.9 to 1.0 CLAUDICATION: 0.5 to 0.9 SEVERE ARTERIAL DISEASE: Less than 0.5 [facility] NORMAL: Greater than 1.0 (1.2 If Heavy Calcifications) NORMAL TO MILD ISCHEMIA: 0.8 to 1.0 MODERATE ISCHEMIA: 0.4 to 0.8 SEVERE ISCHEMIA: Less than 0.4 TECHNICAL DOCUMENTATION: JOB ID: [id number] 2010 [employer]- All Rights Reserved Reading location - IP/workstation name: [email or web address]
== END ==
LOC: SP 14:34
PROVIDERS: ATTEND Preventive Medicine Undersea and Hyperbaric Medicine
DX: E11.621 Type 2 diabetes mellitus with foot ulcer (principal); L97.222 Non-pressure chronic ulcer of left calf with fat layer exposed
CPT/HCPCS: 93922; 93925

== ENCOUNTER → 2020-07-30 | Outpatient (CLI) | payer MEDICARE, BC ==
[2020-07-30 11:30] VITALS: BP 189/88
--- NOTE | 2020-07-30 11:30 | ER [facility] ASSESSMENT REPORT ---
Intake - In the Last 14 days Have you traveled outside [place]?: No Have you been in close contact with someone CONFIRMED: No Worked in Healthcare?: No - Symptoms Subjective Fever(Max feverish): No Chills: No Muscule Aches: No Runny Nose: No Sore Throat: No Cough (New or worsening chronic cough): Yes Shortness of breath: No Nausea or Vomiting: No Headache: No Abdominal Pain: No Diarrhea(3 or more loose stools in last 24 hours): No - Do you have any of the following Chronic lung disease: Asthma or emphysema or COPD: No Cystic Fibrosis: No Diabetes: Yes High Blood Pressure: Yes Cardiovascular Disease: No Chronic Kidney Disease: No Chronic Liver Disease: No Chronic blood disorder like Sickle Cell Disease: No Weak immune system due to disease or medication: Yes Neurologic condition that limits movement: No Developmental delay - Moderate to Severe: No Recent (within past 2 weeks) or current : No Morbid Obesity (>100 pounds over ideal weight): No - Objective Temperature: 97.5 F Pulse Rate: 67 Respiratory Rate: 18 Blood Pressure: 189/88 O2 Sat by Pulse Oximetry: 96 Objective: Given above, testing performed: If Testing Performed: Test Specimen Type Sent to General - General Information source: Patient Notes: Patient presents to the [facility] for screening for the coronavirus. Patient reports symptoms for the past 13 days. Patient has had cough - Related Data Allergies/Adverse Reactions: azithromycin [From Zithromax] Adverse Reaction (Verified 12/22/15 16:17) codeine [Codeine] Adverse Reaction (Verified 12/22/15 16:17) Past Medical History - General Information source: Patient - Social History Family History: Reviewed & Not Pertinent, Hypertension - Past Medical History Cardiac Medical History: Reports: Hx Coronary Artery Disease, Hx Hypercholesterolemia, Hx Hypertension, Hx Peripheral Vascular Disease Denies: Hx Heart Attack Pulmonary Medical History: Denies: Hx Asthma, Hx Bronchitis, Hx COPD, Hx Pneumonia Neurological Medical History: Denies: Hx Cerebrovascular Accident, Hx Seizures Endocrine Medical History: Reports: Hx Diabetes Mellitus Type 2 Renal/ Medical History: Reports: Hx End Stage Renal Disease - w/ kidney transplant Musculoskeletal Medical History: Denies Hx Arthritis Skin Medical History: Reports Hx Cellulitis Psychiatric Medical History: Denies: Hx Depression Past Surgical History: Reports: Hx Cholecystectomy, Hx Kidney (Renal Surgery) - transplant, 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 Denies: Hx Hysterectomy, Hx Pacemaker Physical Exam - Notes Notes: The patient was evaluated during the global Covid 19 pandemic, and that diagnosis was suspected/considered upon their initial presentation. Their evaluation, treatment and testing was consistent with current guidelines for patients who present with complaints or symptoms that may be related to Covid 19. Full physical exam could not be performed due to covid 19 isolation protocols. Constitutional: Nontoxic appearance, no acute distress Eyes: Nonicteric, sclera clear Cardiovascular: Heart rate and rhythm regular, no JVD Respiratory: Breath sounds clear bilaterally, nonlabored breathing, no use of accessory muscles, no tachypnea Gastrointestinal: Abdomen not distended Muculoskeletal: Moves all extremities well Skin: Normal color Neuro: Awake alert oriented, normal speech Psych: Normal mood and affect Diagnostic Results Laboratory Results: Patient presents with upper respiratory symptoms worrisome for possible Covid 19. Patient does not have emergency worrying symptoms such as difficulty breathing, shortness of breath, chest pain, pressure, confusion or cyanosis. Patient is nontoxic in appearance. Good return precautions have been discussed with patient, patient verbalized understanding and is agreeable with discharge plan of care at this time. Patient Education/Counseling Counseling/Education: Patient was provided with discharge information including: As a person under investigation for Covid 19, the [place] department of Health and Human Services, division of public health advises you to adhere to the following guidance until your test results are reported to you. If your test result is positive, you will receive additional information from your provider and your local health department at that time. Remain at home until you are cleared by the health provider or public health authorities. Keep a log of visitors to your home, notify any visitors to your home of your isolation status. If you plan to move to a new address or leave the county, notify the local health department in your County. Call your doctor or seek care if you have an urgent medical need. Before seeking medical care, call ahead to get instructions from the provider before arriving at the medical office clinic or hospital. Notify them that you are being tested for the virus that causes Covid 19 so that arrangements can be made, as necessary, to prevent transmission to others in the healthcare setting. Next, notify the local health department in your county. If a medical emergency arises and you need to call 911, inform the first responders that you are being tested for the virus that causes Covid 19. Next, notify the local health department in your county. [facility] Discharge - Discharge Clinical Impression: Encounter for screening laboratory testing for COVID-19 virus Condition: Stable Disposition: Home; Selfcare
[2020-07-30 12:50] LABS: A TYPE INFLUENZA AG NEGATIVE (NEGATIVE); B INFLUENZA AG NEGATIVE (NEGATIVE)
== END ==
LOC: RDC 10:47
PROVIDERS: ATTEND Nurse Practitioner Family
DX: Z20.828 Contact with and (suspected) exposure to other viral communicable diseases (principal)
CPT/HCPCS: 87804; U0003; C9803; 87635; 99201; 99211

== ENCOUNTER → 2020-08-15 | Outpatient (CLI) | payer MEDICARE, BC ==
[2020-08-15 14:44] LABS: ABSOLUTE EOSINOPHILS # (AUTO) 0.1 10^3/uL (0.0-0.6); ABSOLUTE LYMPHOCYTES (AUTO) 0.7 10^3/uL (0.5-4.7); ABSOLUTE MONOCYTES (AUTO) 0.4 10^3/uL (0.1-1.4); ABSOLUTE NEUT (AUTO) 3.2 10^3/uL (1.7-8.2); HEMATOCRIT 39.5 % (36.0-47.0); HEMOGLOBIN 13.4 g/dL (12.0-15.5); LYMPHOCYTES % (AUTO) 15.3 % (13-45); MEAN CORPUSCULAR HEMOGLOBIN 28.4 pg (27.0-33.4); MEAN CORPUSCULAR HGB CONC 33.8 g/dL (32.0-36.0); MEAN CORPUSCULAR VOLUME 84 fl (80-97); MONOCYTES % (AUTO) 9.9 % (3-13); PLATELET COUNT 150 10^3/uL (150-450); RED CELL DISTRIBUTION WIDTH 14.3 % (11.5-14.0); SEGMENTED NEUTROPHILS % (AUTO) 70.8 % (42-78); TOTAL CELLS COUNTED % (AUTO) 100 %; WHITE BLOOD COUNT 4.5 10^3/uL (4.0-10.5)
[2020-08-15 14:51] LABS: APPEARANCE,URINE SLIGHTLY-CLOUDY; BILIRUBIN,URINE NEGATIVE (NEGATIVE); COLOR,URINE YELLOW; GLUCOSE, URINE 50 mg/dL (NEGATIVE); KETONES,URINE NEGATIVE (NEGATIVE); LEUKOCYTE ESTERASE,URINE SMALL (NEGATIVE); NITRITE,URINE NEGATIVE (NEGATIVE); PROTEIN,URINE 100 mg/dL (NEGATIVE); URINE SPECIFIC GRAVITY 1.013; UROBILINOGEN,URINE NEGATIVE mg/dL (<2.0)
[2020-08-15 15:08] LABS: ALBUMIN 4.2 g/dL (3.5-5.0); ALKALINE PHOSPHATASE 97 U/L (38-126); ANION GAP 8 (5-19); ASPARTATE AMINO TRANSFERASE 18 U/L (14-36); BILIRUBIN,DIRECT 0.3 mg/dL (0.0-0.4); BILIRUBIN,TOTAL 0.8 mg/dL (0.2-1.3); BLOOD UREA NITROGEN 45 mg/dL (7-20); CALCIUM 10.3 mg/dL (8.4-10.2); CARBON DIOXIDE 24 mmol/L (22-30); CHLORIDE 107 mmol/L (98-107); CHOLESTEROL 155.92 mg/dL (0-200); GLUCOSE 114 mg/dL (75-110); POTASSIUM 5.1 mmol/L (3.6-5.0); TOTAL PROTEIN 7.5 g/dL (6.3-8.2); TRIGLYCERIDES 203 mg/dL (<150)
[2020-08-15 15:19] LABS: DIRECT LDL 78 mg/dL (<100)
[2020-08-15 15:28] LABS: VLDL CHOLESTEROL 40.6 mg/dL (10-31)
== END ==
LOC: OD 12:40
PROVIDERS: ATTEND Internal Medicine
DX: N39.0 Urinary tract infection, site not specified (principal); E11.9 Type 2 diabetes mellitus without complications; I10 Essential (primary) hypertension; E78.5 Hyperlipidemia, unspecified
CPT/HCPCS: 36415; 80053; 80061; 81001; 83036; 84443; 85025; 87086

== ENCOUNTER 2020-08-18 19:38 | Inpatient (IN) | payer MEDICARE, BC ==
[2020-08-18] MEDS ORDERED: NORMAL SALINE 1000 ML 1,000 ML IV ONE (19:56)
[2020-08-18] MEDS ORDERED: ONDANSETRON HCL INJ/PF 4 MG/2 ML SDV IV ONE (19:56)
--- NOTE | 2020-08-18 19:56 | ER Document Report ---
ED Medical Screen (RME) - General Chief Complaint: Urinary Frequency Stated Complaint: URINARY COMPLAINTS Time Seen by Provider: 08/18/20 19:43 Primary Care Provider: BRIA VALENCIA MD [Primary Care Provider] - Follow up as needed Notes: Patient is a 69-year-old female who presents the emergency department with a chief complaint of urinary symptoms. Patient states that she was treated for a urinary tract infection on August 05. She was prescribed ciprofloxacin. Patient states that she completed her round of antibiotics, but continues to feel pain to her mid lower abdomen and back. Patient is also diabetic. Denies any vomiting, but states that she feels nauseous. Denies any fever. Patient has a history of a kidney transplant on the right side. This was done in 2011. Patient has a fistula to left arm. Denies any other abdominal surgeries. Of note, the patient is due for 30 units of Lantus tonight at 11:00. With EMS, patient's blood sugar was 252. She covered herself with insulin. Exam: Tender right upper and right lower abdomen. I have greeted and performed a rapid initial assessment of this patient. A comprehensive ED assessment and evaluation of the patient, analysis of test r esults and completion of medical decision making process will be conducted by an additional ED providers. TRAVEL OUTSIDE OF THE [place] IN LAST 30 DAYS: No - Related Data Allergies/Adverse Reactions: azithromycin [From Zithromax] Adverse Reaction (Verified 12/22/15 16:17) codeine [Codeine] Adverse Reaction (Verified 12/22/15 16:17) Past Medical History - Past Medical History Cardiac Medical History: Reports: Hx Coronary Artery Disease, Hx Hypercholesterolemia, Hx Hypertension, Hx Peripheral Vascular Disease Denies: Hx Heart Attack Pulmonary Medical History: Denies: Hx Asthma, Hx Bronchitis, Hx COPD, Hx Pneumonia Neurological Medical History: Denies: Hx Cerebrovascular Accident, Hx Seizures Endocrine Medical History: Reports: Hx Diabetes Mellitus Type 2 Renal/ Medical History: Reports: Hx End Stage Renal Disease - w/ kidney transplant Musculoskeltal Medical History: Denies Hx Arthritis Skin Medical History: Reports Hx Cellulitis Psychiatric Medical History: Denies: Hx Depression Past Surgical History: Reports: Hx Cholecystectomy, Hx Kidney (Renal Surgery) - transplant, 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 Denies: Hx Hysterectomy, Hx Pacemaker - Immunizations Hx Diphtheria, Pertussis, Tetanus Vaccination: Yes Doctor's Discharge - Discharge Referrals: BRIA VALENCIA MD [Primary Care Provider] - Follow up as needed
[2020-08-18 20:50] LABS: ABSOLUTE LYMPHOCYTES (AUTO) 0.5 10^3/uL (0.5-4.7); ABSOLUTE MONOCYTES (AUTO) 0.3 10^3/uL (0.1-1.4); ABSOLUTE NEUT (AUTO) 4.2 10^3/uL (1.7-8.2); BASOPHILS % (AUTO) 0.6 % (0-2); EOSINOPHILS % (AUTO) 0.9 % (0-6); HEMATOCRIT 38.9 % (36.0-47.0); HEMOGLOBIN 13.2 g/dL (12.0-15.5); LYMPHOCYTES % (AUTO) 9.6 % (13-45); MEAN CORPUSCULAR HEMOGLOBIN 28.7 pg (27.0-33.4); MEAN CORPUSCULAR HGB CONC 33.9 g/dL (32.0-36.0); MEAN CORPUSCULAR VOLUME 85 fl (80-97); MONOCYTES % (AUTO) 5.8 % (3-13); PLATELET COUNT 138 10^3/uL (150-450); RED BLOOD COUNT 4.59 10^6/uL (3.72-5.28); RED CELL DISTRIBUTION WIDTH 14.3 % (11.5-14.0); SEGMENTED NEUTROPHILS % (AUTO) 83.1 % (42-78); TOTAL CELLS COUNTED % (AUTO) 100 %; WHITE BLOOD COUNT 5.1 10^3/uL (4.0-10.5)
--- NOTE | 2020-08-18 20:58 | ER Document Report ---
ED GI/ - General Chief Complaint: Urinary Frequency Stated Complaint: URINARY COMPLAINTS Time Seen by Provider: 08/18/20 19:43 Mode of Arrival: Wheelchair Information source: Patient, Relative - Notes: 69-year-old female patient with multiple comorbidities including kidney transplant presenting to the emergency department chief complaint of urinary frequency, mental status changes and generalized malaise and weakness. Has been reports patient was diagnosed with urinary tract infection approximately 1 week ago, has completed a course of Cipro. Patient's symptoms have not resolved. Denies any fevers, chills, nausea, vomiting or diarrhea. She has not had a bowel movement in at least 5 days. TRAVEL OUTSIDE OF THE [place] IN LAST 30 DAYS: No - Related Data Allergies/Adverse Reactions: azithromycin [From Zithromax] Adverse Reaction (Verified 12/22/15 16:17) codeine [Codeine] Adverse Reaction (Verified 12/22/15 16:17) Past Medical History - General Information source: Patient - Social History Smoking Status: Unknown if Ever Smoked Family History: CAD, DM, Malignancy Patient has homicidal ideation: No - Past Medical History Cardiac Medical History: Reports: Hx Coronary Artery Disease, Hx Hypercholestero lemia, Hx Hypertension, Hx Peripheral Vascular Disease Denies: Hx Heart Attack Pulmonary Medical History: Denies: Hx Asthma, Hx Bronchitis, Hx COPD, Hx Pneumonia Neurological Medical History: Denies: Hx Cerebrovascular Accident, Hx Seizures Endocrine Medical History: Reports: Hx Diabetes Mellitus Type 2 Renal/ Medical History: Reports: Hx End Stage Renal Disease - w/ kidney transplant Musculoskeletal Medical History: Denies Hx Arthritis Skin Medical History: Reports Hx Cellulitis Psychiatric Medical History: Denies: Hx Depression Past Surgical History: Reports: Hx Cholecystectomy, Hx Kidney (Renal Surgery) - transplant, 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 Denies: Hx Hyst erectomy, Hx Pacemaker - Immunizations Hx Diphtheria, Pertussis, Tetanus Vaccination: Yes Hx Pneumococcal Vaccination: 11/01/09 Review of Systems - Review of Systems Constitutional: denies: Chills, Fever EENT: No symptoms reported Cardiovascular: No symptoms reported Respiratory: No symptoms reported Gastrointestinal: Constipation Genitourinary: Frequency Female Genitourinary: No symptoms reported Musculoskeletal: No symptoms reported Skin: No symptoms reported Hematologic/Lymphatic: No symptoms reported Neurological/Psychological: No symptoms reported Physical Exam - Vital signs Vitals: Temp Pulse Resp BP Pulse Ox 97.6 F 69 16 135/54 H 100 08/18/20 20:02 08/18/20 20:02 08/18/20 20:02 08/18/20 20:02 08/18/20 20:02 - Notes Notes: PHYSICAL EXAMINATION: GENERAL: Well-appearing, well-nourished and in no acute distress. HEAD: Atraumatic, normocephalic. EYES: Pupils equal round and reactive to light to right eye, extraocular movements intact, conjunctiva are normal. Left eye slightly drooped, states this is baseline for patient ENT: Nares patent, oropharynx clear without exudates. Moist mucous membranes. NECK: Normal range of motion, supple without lymphadenopathy LUNGS: Breath sounds clear to auscultation bilaterally and equal. No wheezes rales or rhonchi. HEART: Regular rate and rhythm without murmurs ABDOMEN: Soft, nontender, nondistended abdomen. No guarding, no rebound. No masses appreciated. Female : deferred Musculoskeletal: Normal range of motion, no pitting or edema. No cyanosis. NEUROLOGICAL: Cranial nerves grossly intact. Normal speech. 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 PSYCH: Normal mood, normal affect. SKIN: Warm, Dry, normal turgor, no rashes or lesions noted. Course - Re-evaluation Re-evalutation: Patient admitted to hospitalist for urinary tract infection that has failed outpatient treatment as well as hyperkalemia. - Vital Signs Vital signs: Temp Pulse Resp BP Pulse Ox 97.6 F 73 16 172/69 H 100 08/18/20 20:02 08/19/20 00:12 08/18/20 20:02 08/19/20 00:12 08/18/20 20:02 - Laboratory Result Diagrams: 08/18/20 20:40 08/18/20 20:40 Laboratory results interpreted by me: 08/18/20 08/18/20 08/18/20 20:40 20:40 22:05 RDW 14.3 H Plt Count 138 L Lymph % (Auto) 9.6 L Seg Neutrophils % 83.1 H Sodium 136.7 L Potassium 5.7 H BUN 40 H Creatinine 1.30 H Est GFR ( Amer) 49 L Est GFR (MDRD) Non-Af 41 L Glucose 259 H Urine Protein 100 H Urine Glucose (UA) 50 H Urine Blood SMALL H Ur Leukocyte Esterase MODERATE H Discharge - Discharge Clinical Impression: Hyperkalemia Constipation Qualifiers: Constipation type: unspecified constipation type Qualified Code(s): K59.00 - Constipation, unspecified Urinary tract infection Qualifiers: Urinary tract infection type: site unspecified Hematuria presence: with hematuria Qualified Code(s): N39.0 - Urinary tract infection, site not specified Condition: Stable Disposition: ADMITTED OBSERVATION Admitting Provider: David (Hospitalist) Unit Admitted: Telemetry
[2020-08-18 21:27] LABS: ALKALINE PHOSPHATASE 95 U/L (38-126); ANION GAP 9 (5-19); ASPARTATE AMINO TRANSFERASE 23 U/L (14-36); BILIRUBIN,DIRECT 0.3 mg/dL (0.0-0.4); BILIRUBIN,TOTAL 0.9 mg/dL (0.2-1.3); BLOOD UREA NITROGEN 40 mg/dL (7-20); CARBON DIOXIDE 23 mmol/L (22-30); CHLORIDE 105 mmol/L (98-107); GLUCOSE 259 mg/dL (75-110); POTASSIUM 5.7 mmol/L (3.6-5.0); TOTAL PROTEIN 7.6 g/dL (6.3-8.2)
--- NOTE | 2020-08-18 22:13 | RADIOLOGY REPORT (SQ) ---
CT HEAD WITHOUT IV CONTRAST CLINICAL STATEMENT: AMS TECHNIQUE: Axial CT images from skull base to vertex without IV contrast. This exam was performed according to our departmental dose optimization program, and includes the following measures where applicable: automated exposure control, adjustment of the mAs and/or kVp according to patient size and/or exam, and an iterative reconstruction algorithm. COMPARISON: Unenhanced CT scan of the brain 03/23/2020 FINDINGS: There is no acute intracranial hemorrhage, mass, mass effect or abnormal extra-axial fluid collection. No evidence of an acute territorial infarct is identified. Ventricles and basilar cisterns are patent. There is scattered low density in the periventricular white matter bilaterally consistent with small vessel ischemic change. Vascular calcifications are present in the left vertebral artery and in the internal carotid arteries at the skull base. Overall the appearance is stable. No acute process is seen. Calvaria: The skull base and calvaria demonstrate no abnormality. Paranasal sinuses: Paranasal sinuses are aerated. There is an abnormal appearance of the left globe consistent with postsurgical change. The appearance is stable. skull base: Unremarkable IMPRESSION: 1. No acute hemorrhage or mass lesion. 2. Diffuse global volume loss with white matter changes consistent with small vessel ischemic disease. 3. Abnormal appearance of the left globe. This is stable
--- NOTE | 2020-08-18 22:17 | RADIOLOGY REPORT (SQ) ---
EXAM DESCRIPTION: X-ray, single view of the abdomen CLINICAL HISTORY: 69 years Female, no BM x5 days COMPARISON: Single view of the abdomen 05/16/2015 FINDINGS: Moderate volume of stool is seen throughout the colon. There is vascular calcifications. Clips are present in the right upper quadrant consistent with previous cholecystectomy. Lung bases are clear. An IUD device is noted in the uterus. Air is present in the rectal vault. Multiple phleboliths are seen in the pelvis. IMPRESSION: 1. Moderate stool in the colon. No obstruction. 2. IUD device is present in the pelvis. 3. Extensive vascular calcifications.
[2020-08-18 22:46] LABS: APPEARANCE,URINE SLIGHTLY-CLOUDY; BILIRUBIN,URINE NEGATIVE (NEGATIVE); COLOR,URINE YELLOW; GLUCOSE, URINE 50 mg/dL (NEGATIVE); KETONES,URINE NEGATIVE (NEGATIVE); LEUKOCYTE ESTERASE,URINE MODERATE (NEGATIVE); NITRITE,URINE NEGATIVE (NEGATIVE); PROTEIN,URINE 100 mg/dL (NEGATIVE); URINE SPECIFIC GRAVITY 1.011; UROBILINOGEN,URINE NEGATIVE mg/dL (<2.0)
[2020-08-19] MEDS ORDERED: CARVEDILOL 3.125 MG TABLET PO ONE
[2020-08-19] MEDS ORDERED: SODIUM POLYSTYRENE SULFONATE 15 GM/60 ML PO ONE (00:09)
[2020-08-19] MEDS ORDERED: MEROPENEM 1 GM VIAL IV ONE (00:12)
[2020-08-19] MEDS ORDERED: DEXTROSE 50%-WATER 25 GM/50 ML DISP.SYRIN IV PRN ×2 (01:26)
[2020-08-19] MEDS ORDERED: DEXTROSE 40% GEL 15 GM TUBE PO PRN ×2 (01:26)
[2020-08-19] MEDS ORDERED: GLUCAGON,HUMAN RECOMB 1 MG INJ IM PRN (01:26)
[2020-08-19] MEDS ORDERED: MAG HYDROX/AL HYDROX/SIMETH SUSP 30 ML UDCUP PO PRN (01:26)
[2020-08-19] MEDS ORDERED: ONDANSETRON HCL INJ/PF 4 MG/2 ML SDV IV PRN (01:26)
[2020-08-19] MEDS ORDERED: NORMAL SALINE 1000 ML 1,000 ML IV PRN (01:26)
[2020-08-19] MEDS ORDERED: LORAZEPAM INJ 2 MG/1 ML VIAL IV PRN (01:42)
[2020-08-19] MEDS ORDERED: INSULIN REG, HUMAN 100 UNIT/ML 3 ML VIAL (PYX) SUBCUT PRN (01:42)
[2020-08-19] MEDS ORDERED: ACETAMINOPHEN 325 MG TABLET PO PRN (01:42)
[2020-08-19] MEDS ORDERED: MORPHINE SULFATE 10 MG/ML INJ IV PRN (01:42)
[2020-08-19] MEDS ORDERED: HYDRALAZINE HCL INJ/PF 20 MG/1 ML SDV IV PRN (03:36)
[2020-08-19] MEDS ORDERED: METOPROLOL TARTRATE PF/INJ 5 MG/5 ML SDV IV PRN (03:37)
--- NOTE | 2020-08-19 04:33 | PDOC H&P ---
History of Present Illness Admission Date/PCP: 08/19/20 00:47 BRIA VALENCIA MD Patient complains of: Urinary frequency History of Present Illness: HETAL BERMAN is a 69 year old female who presented to the emergency room with a 2-week history of urinary frequency. She admits the gradual onset of urinary frequency 2 weeks ago which has not improved despite being treated with a full course of oral Cipro. Her frequency became severe on the evening of 08/17/2020 with the urgent need to urinate occurring every 30 minutes. Her urinary frequency (and urgency) has been accompanied by generalized malaise and weakness and has been associated with intermittent mental confusion for the last 24 hours and constipation x1 week. She denies other associated or accompanying signs and symptoms. She admits prior similar episodes with urinary tract infections. She has not identified any aggravating or ameliorating factors for her urinary frequency. In the emergency room she was found to have pyuria and an elevated serum potassium of 5.7. She is noted to be a renal transplant patient and was subsequently admitted to the hospitalist service on observation status for further evaluation and treatment. Past Medical History Cardiac Medical History: Reports: Coronary Artery Disease, Hyperlipidema, Hypertension, Peripheral Vascular Disease Denies: Atrial Fibrillation, Congestive Heart Failure, Myocardial Infarction Pulmonary Medical History: Denies: Asthma, Bronchitis, Chronic Obstructive Pulmonary Disease (COPD), Pneumonia EENT Medical History: Denies: Cataracts, Ears - Hearing aids Neurological Medical History: Denies: Hemorrhagic CVA, Ischemic CVA, Seizures Endocrine Medical History: Reports: Diabetes Mellitus Type 2, Obesity Denies: Diabetes Mellitus Type 1, Hyperthyroidism, Hypothyroidism Renal/ Medical History: Reports: Chronic Kidney Disease, Other - Status post renal transplant Denies: Nephrolithiasis Malignancy Medical History: Reports: None GI Medical History: Denies: Cirrhosis, Hepatitis, Peptic Ulcer Disease Musculoskeltal Medical History: Reports: Other - Nonambulatory status, 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 Denies: Arthritis, Fibromyalgia Skin Medical History: Reports: Other - Diabetic foot ulcers Denies: Eczema, Psoriasis Psychiatric Medical History: Denies: Alcohol Dependency, Depression, Substance Abuse, Tobacco Dependency Traumatic Medical History: Reports: None Hematology: Denies: Anemia, Bleeding Tendencies Infectious Medical History: Reports: None Past Surgical History Past Surgical History: Reports: Cholecystectomy, Orthopedic Surgery - amputation x2 Left toes, Renal Transplant Social History Information Source: Patient Lives with: Spouse/Significant other Smoking Status: Never Smoker Electronic Cigarette use?: No Frequency of Alcohol Use: None Hx Recreational Drug Use: No Drugs: None Hx Prescription Drug Abuse: No - Advance Directive Resuscitation Status: Full Code Surrogate healthcare decision maker:: Kelton Berman Family History Family History: CAD, DM, Malignancy Parental Family History Reviewed: Yes Children Family History Reviewed: No Sibling(s) Family History Reviewed.: Yes Medication/Allergy Home Medications: Aspirin [Ecotrin] 81 mg PO DAILY 12/28/19 Cetirizine HCl [Zyrtec 10 mg Tablet] 10 mg PO DAILYP PRN 12/28/19 Insulin Glargine,Hum.rec.anlog [Lantus Insulin 100 Unit/1 ml 10 ml] 32 unit SUBCUT QHS 12/28/19 Insulin Lispro [Humalog Insulin (Lispro) 100 unit/mL] 7 unit SUBCUT BIDACBL 12/28/19 Insulin Lispro [Humalog Insulin (Lispro) 100 unit/mL] 12 unit SUBCUT ACSUPPER 12/28/19 Metoclopramide HCl [Reglan] 5 mg PO BIDP PRN 12/28/19 Multivitamin [Tab-A-Mercy (Multiple Vitamin) Tablet] 1 tab PO DAILY 12/28/19 Mycophenolate Sodium [Myfortic 360 mg Tablet.dr] 360 mg PO Q12 12/28/19 Omeprazole 20 mg PO DAILYP PRN 12/28/19 Prednisone [Deltasone 5 mg Tablet] 5 mg PO DAILY 12/28/19 Tacrolimus Anhydrous [Prograf 1 mg Capsule] 1 mg PO Q12 12/28/19 Temazepam [Restoril 15 mg Capsule] 30 mg PO QHS 12/28/19 Carvedilol [Coreg 6.25 mg Tablet] 6.25 mg PO Q12 30 Days tablet 12/29/19 Allergies/Adverse Reactions: azithromycin [From Zithromax] Adverse Reaction (Verified 12/22/15 16:17) codeine [Codeine] Adverse Reaction (Verified 12/22/15 16:17) Review of Systems Constitutional: PRESENT: as per HPI, fatigue, weakness. ABSENT: chills, fever(s) Eyes: ABSENT: visual disturbances, other - Eye pain Ears: ABSENT: hearing changes, other - Ear pain Nose, Mouth, and Throat: ABSENT: headache(s), sore throat Cardiovascular: ABSENT: chest pain, palpitations Respiratory: ABSENT: cough, dyspnea Gastrointestinal: PRESENT: as per HPI, constipation. ABSENT: abdominal pain, diarrhea, nausea, vomiting Genitourinary: PRESENT: as per HPI, other - Urinary frequency. ABSENT: dysuria, hematuria Musculoskeletal: ABSENT: back pain, joint swelling Integumentary: ABSENT: pruritus, rash Neurological: PRESENT: as per HPI, confusion. ABSENT: convulsions, focal weakness, memory loss, syncope Psychiatric: ABSENT: anxiety, depression Endocrine: ABSENT: cold intolerance, heat intolerance Hematologic/Lymphatic: ABSENT: easy bleeding, easy bruising Allergic/Immunologic: ABSENT: seasonal rhinorrhea Physical Exam Vital Signs: Temp Pulse Resp BP Pulse Ox 97.6 F 73 16 172/69 H 100 08/18/20 20:02 08/19/20 00:12 08/18/20 20:02 08/19/20 00:12 08/18/20 20:02 Intake & Output 08/17/20 08/18/20 08/19/20 23:59 23:59 23:59 Intake Total 1000 Balance 1000 Weight 84.368 kg General appearance: PRESENT: no acute distress, cooperative, obese Head exam: PRESENT: atraumatic, normocephalic Eye exam: PRESENT: conjunctiva pink. ABSENT: conjunctival injection, scleral icterus Ear exam: PRESENT: normal external ear exam. ABSENT: bleeding, drainage Mouth exam: PRESENT: dry mucosa, neck supple Neck exam: ABSENT: thyromegaly, tracheal deviation Respiratory exam: PRESENT: clear to auscultation maggi, symmetrical, unlabored Cardiovascular exam: PRESENT: RRR, rubs. ABSENT: clicks, gallop Pulses: PRESENT: normal radial pulses, normal dorsalis pedis pul Vascular exam: PRESENT: normal capillary refill. ABSENT: pallor GI/Abdominal exam: PRESENT: normal bowel sounds, soft. ABSENT: tenderness Rectal exam: PRESENT: deferred Extremities exam: ABSENT: joint swelling, pedal edema Musculoskeletal exam: ABSENT: ambulatory, deformity, dislocation Neurological exam: PRESENT: alert, oriented to person, oriented to place, oriented to time, oriented to situation, CN II-XII grossly intact Psychiatric exam: PRESENT: appropriate affect, normal mood Skin exam: PRESENT: dry, intact, warm. ABSENT: jaundice, rash, urticaria Results Laboratory Results: 08/18/20 20:40 08/18/20 20:40 08/18/20 08/18/20 08/18/20 20:40 20:40 22:05 WBC 5.1 RBC 4.59 Hgb 13.2 Hct 38.9 MCV 85 MCH 28.7 MCHC 33.9 RDW 14.3 H Plt Count 138 L Seg Neutrophils % 83.1 H Sodium 136.7 L Potassium 5.7 H Chloride 105 Carbon Dioxide 23 Anion Gap 9 BUN 40 H Creatinine 1.30 H Est GFR ( Amer) 49 L Glucose 259 H Calcium 10.0 Total Bilirubin 0.9 AST 23 Alkaline Phosphatase 95 Total Protein 7.6 Albumin 4.0 Lipase 234.0 Urine Color YELLOW Urine Appearance SLIGHTLY-CLOUDY Urine pH 6.0 Ur Specific [place] 1.011 Urine Protein 100 H Urine Glucose (UA) 50 H Urine Ketones NEGATIVE Urine Blood SMALL H Urine Nitrite NEGATIVE Ur Leukocyte Esterase MODERATE H Urine WBC (Auto) 133 Urine RBC (Auto) 3 Impressions: Head CT 08/18/20 21:24 IMPRESSION: 1. No acute hemorrhage or mass lesion. 2. Diffuse global volume loss with white matter changes consistent with small vessel ischemic disease. 3. Abnormal appearance of the left globe. This is stable KUB X-Ray 08/18/20 21:24 IMPRESSION: 1. Moderate stool in the colon. No obstruction. 2. IUD device is present in the pelvis. 3. Extensive vascular calcifications. Assessment and Plan - Diagnosis (1) Hyperkalemia Is this a current diagnosis for this admission?: Yes (2) Pyuria Is this a current diagnosis for this admission?: Yes (3) Kidney transplant recipient Is this a current diagnosis for this admission?: Yes (4) Constipation Qualifiers: Constipation type: unspecified constipation type Qualified Code(s): K59.00 - Constipation, unspecified Is this a current diagnosis for this admission?: Yes (5) Diabetes mellitus type 2 in obese Is this a current diagnosis for this admission?: Yes (6) Hypercholesteremia Is this a current diagnosis for this admission?: Yes (7) Peripheral vascular disease Is this a current diagnosis for this admission?: Yes (8) History of coronary artery disease Is this a current diagnosis for this admission?: Yes (9) Hypertension Qualifiers: Hypertension type: essential hypertension Qualified Code(s): I10 - Essential (primary) hypertension Is this a current diagnosis for this admission?: Yes - Plan Summary Summary: Patient will be admitted to observation status on the medical floor and in a telemetry bed where she will receive routine supportive and symptomatic cares. She was given an initial dose of Kayexalate in the emergency room and her serum potassium will be rechecked on a serial basis. She will receive IV normal saline at 167 mL/h initially. She was given empiric antibiotic therapy with meropenem 1 g IV in the emergency room which may be continued pending initial blood and urine culture results. Patient's usual home medications will be resumed, as appropriate, as soon as her medication list has been verified and reconciled. Before meals and at bedtime Accu-Cheks will be performed with sliding scale insulin for hyperglycemia and a hyperglycemic protocol will be in place. She will be treated with a cardiac and diabetic restricted diet. Additional laboratory and/or radiographic evaluations will be obtained as appropriate. - Time Time Spent with patient: 15-24 minutes Medications reviewed and adjusted accordingly: Yes Anticipated Discharge Disposition: Home with Home Health Anticipated Discharge Timeframe: within 36 hours - Inpatient Certification Based on my medical assessment, after consideration of the patient's comorbidities, presenting symptoms, or acuity I expect that the services needed warrant INPATIENT care.: No I certify that my determination is in accordance with my understanding of Medicare's requirements for reasonable and necessary INPATIENT services [42 CFR 412.3e].: No
[2020-08-19] MEDS: HEPARIN SOD (PORCINE) 5,000 UNIT/ML 1 ML VIAL SUBCUT SCH ×3 (05:41→21:41)
[2020-08-19 07:04] LABS: ANION GAP 8 (5-19); BLOOD UREA NITROGEN 36 mg/dL (7-20); CALCIUM 9.6 mg/dL (8.4-10.2); CARBON DIOXIDE 22 mmol/L (22-30); CHLORIDE 108 mmol/L (98-107); GLUCOSE 148 mg/dL (75-110)
[2020-08-19 07:45] LABS: POTASSIUM 4.7 mmol/L (3.6-5.0)
[2020-08-19] MEDS: FAMOTIDINE 20 MG TABLET PO SCH ×2 (09:56→21:42)
[2020-08-19] MEDS: DOCUSATE SODIUM 100 MG CAPSULE PO SCH ×2 (09:56→20:08)
[2020-08-19] MEDS ORDERED: LUBIPROSTONE 24 MCG CAPSULE PO PRN (11:45)
[2020-08-19] MEDS: PIPERACILLIN SODIUM/TAZOBACTAM 3.375 GM in NORMAL SALINE 100 ML IV SCH ×2 (12:14→20:08)
[2020-08-19] MEDS ORDERED: TACROLIMUS ANHYDROUS 1 MG CAPSULE PO ONE (13:00)
[2020-08-19] MEDS ORDERED: PREDNISONE 5 MG TABLET PO ONE (13:15)
[2020-08-19] MEDS ORDERED: LUBIPROSTONE 24 MCG CAPSULE PO ONE (18:00)
[2020-08-19] MEDS: INSULIN GLARGINE,HUM.REC.ANLOG 1,000 UNIT/10 ML VIAL SUBCUT SCH (21:41)
[2020-08-19] MEDS: CARVEDILOL 3.125 MG TABLET PO SCH (21:42)
[2020-08-19] MEDS: TEMAZEPAM 15 MG CAPSULE PO SCH (21:42)
[2020-08-19] MEDS: TACROLIMUS ANHYDROUS 1 MG CAPSULE PO SCH (21:43)
[2020-08-19] MEDS ORDERED: (PENDING PHARMACY ID) (Mycophenolate Sodium 360 MG) PO SCH (22:00)
--- NOTE | 2020-08-19 22:10 | PDOC PROGRESS REPORT ---
Subjective Progress Note for:: 08/19/20 Subjective:: Patient was seen and examined at bedside, she reports that her dysuria and urinary frequency has improved since being admitted. Denies any nausea or vomiting, no abdominal pain, no fever. She informed me that she is a kidney transplant patient and is taking Myfortic, Prograf, prednisone for her kidney transplant. 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 ABSENT: rales Cardiovascular exam: PRESENT: RRR, +S1, +S2 Pulses: PRESENT: normal radial pulses GI/Abdominal exam: PRESENT: normal bowel sounds, soft. ABSENT: rebound, tenderness Extremities exam: PRESENT: other - Surgically absent left foot Musculoskeletal exam: PRESENT: full ROM Neurological exam: PRESENT: alert, awake, oriented to person, oriented to place, oriented to time Psychiatric exam: PRESENT: normal mood Skin exam: PRESENT: normal color Results Laboratory Results: 08/18/20 20:40 08/19/20 05:43 08/18/20 08/19/20 22:05 05:43 Sodium 137.7 Potassium 4.7 D Chloride 108 H Carbon Dioxide 22 Anion Gap 8 BUN 36 H Creatinine 1.18 Est GFR ( Amer) 55 L Glucose 148 H Calcium 9.6 Magnesium 1.9 Urine Color YELLOW Urine Appearance SLIGHTLY-CLOUDY Urine pH 6.0 Ur Specific [place] 1.011 Urine Protein 100 H Urine Glucose (UA) 50 H Urine Ketones NEGATIVE Urine Blood SMALL H Urine Nitrite NEGATIVE Ur Leukocyte Esterase MODERATE H Urine WBC (Auto) 133 Urine RBC (Auto) 3 Impressions: Head CT 08/18/20 21:24 IMPRESSION: 1. No acute hemorrhage or mass lesion. 2. Diffuse global volume loss with white matter changes consistent with small vessel ischemic disease. 3. Abnormal appearance of the left globe. This is stable KUB X-Ray 08/18/20 21:24 IMPRESSION: 1. Moderate stool in the colon. No obstruction. 2. IUD device is present in the pelvis. 3. Extensive vascular calcifications. Assessment and Plan - Diagnosis (1) Urinary tract infection Qualifiers: Urinary tract infection type: site unspecified Hematuria presence: with hematuria Qualified Code(s): N39.0 - Urinary tract infection, site not specified; R31.9 - Hematuria, unspecified Is this a current diagnosis for this admission?: Yes Plan: -Kidney transplant patient who comes in due to urinary frequency and dysuria -UA positive for leukocyte esterase moderate, urine WBC 133, urine blood small -Received meropenem switched to Zosyn -Urine culture pending de-escalate antibiotics as needed (2) AUNG (acute kidney injury) Is this a current diagnosis for this admission?: Yes Plan: -Creatinine 1.3 went down to 1.18 with IV fluids -Kidney transplant recipient -Continue to monitor -Nephro consult if her creatinine continues to trend up (3) Kidney transplant recipient Is this a current diagnosis for this admission?: Yes Plan: Received kidney transplant right due to 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 -Follows at [facility] -Resumed her Prograf, Myfortic, prednisone (4) Hyperkalemia Is this a current diagnosis for this admission?: Yes Plan: Potassium 5.7 went down to 4.7 -no EKG changes -Status post Kayexalate (5) Diabetes mellitus type 2 in obese Is this a current diagnosis for this admission?: Yes Plan: -Resumed home dose of long-acting insulin -Accu-Cheks -Sliding scale insulin -Hypoglycemia protocol (6) Constipation Qualifiers: Constipation type: unspecified constipation type Qualified Code(s): K59.00 - Constipation, unspecified Is this a current diagnosis for this admission?: Yes Plan: -Resolved with Kayexalate (7) Hypercholesteremia Is this a current diagnosis for this admission?: Yes Plan: -Continue Lipitor (8) Hypertension Qualifiers: Hypertension type: essential hypertension Qualified Code(s): I10 - Essential (primary) hypertension Is this a current diagnosis for this admission?: Yes (9) Peripheral vascular disease Is this a current diagnosis for this admission?: Yes Plan: Continue aspirin and Lipitor (10) History of coronary artery disease Is this a current diagnosis for this admission?: Yes Plan: Continue carvedilol aspirin - Time Time Spent with patient: 25-34 minutes Anticipated Discharge Disposition: Home, Self Care Anticipated Discharge Timeframe: within 48 hours
[2020-08-19] MEDS: INSULIN LISPRO 100 UNIT/ML 3 ML VIAL SUBCUT SCH (22:28)
[2020-08-19] MEDS: NORMAL SALINE 1000 ML 1,000 ML IV PRN (23:32)
[2020-08-20] MEDS: PIPERACILLIN SODIUM/TAZOBACTAM 3.375 GM in NORMAL SALINE 100 ML IV SCH ×4 (00:12→17:47)
[2020-08-20] MEDS: HEPARIN SOD (PORCINE) 5,000 UNIT/ML 1 ML VIAL SUBCUT SCH ×3 (05:24→22:23)
[2020-08-20 06:05] LABS: ANION GAP 10 (5-19); BLOOD UREA NITROGEN 30 mg/dL (7-20); CALCIUM 9.5 mg/dL (8.4-10.2); CARBON DIOXIDE 22 mmol/L (22-30); CHLORIDE 107 mmol/L (98-107); GLUCOSE 105 mg/dL (75-110); POTASSIUM 4.6 mmol/L (3.6-5.0)
[2020-08-20] MEDS: INSULIN LISPRO 100 UNIT/ML 3 ML VIAL SUBCUT SCH ×4 (07:38→22:23)
[2020-08-20] MEDS ORDERED: INFLUENZA QUAD (6MOS+) 2020-21 VAC 0.5 ML SYR IM ONE (08:00)
[2020-08-20] MEDS: PREDNISONE 5 MG TABLET PO SCH (08:35)
[2020-08-20] MEDS: NORMAL SALINE 1000 ML 1,000 ML IV PRN ×2 (08:50→20:47)
[2020-08-20] MEDS: DOCUSATE SODIUM 100 MG CAPSULE PO SCH ×2 (09:40→17:47)
[2020-08-20] MEDS: ASPIRIN 81 MG TABLET, ENT COATED PO SCH (09:40)
[2020-08-20] MEDS: FAMOTIDINE 20 MG TABLET PO SCH ×2 (09:40→22:22)
[2020-08-20] MEDS: CARVEDILOL 3.125 MG TABLET PO SCH ×2 (09:41→22:21)
[2020-08-20] MEDS: TACROLIMUS ANHYDROUS 1 MG CAPSULE PO SCH ×2 (09:41→22:22)
--- NOTE | 2020-08-20 18:20 | PDOC PROGRESS REPORT ---
Subjective Progress Note for:: 08/20/20 Subjective:: As per admitting physician HETAL BERMAN is a 69 year old female who presented to the emergency room with a 2-week history of urinary frequency. She admits the gradual onset of urinary frequency 2 weeks ago which has not improved despite being treated with a full course of oral Cipro. Her frequency became severe on the evening of 08/17/2020 with the urgent need to urinate occurring every 30 minutes. Her urinary frequency (and urgency) has been accompanied by generalized malaise and weakness and has been associated with intermittent mental confusion for the last 24 hours and constipation x1 week. She denies other associated or accompanying signs and symptoms. She admits prior similar episodes with urinary tract infections. She has not identified any aggravating or ameliorating factors for her urinary frequency. In the emergency room she was found to have pyuria and an elevated serum potassium of 5.7. She is noted to be a renal transplant patient and was subsequently admitted to the hospitalist service on observation status for further evaluation and treatment. 08/20/2020. Overnight patient was having urgency however could not pass urine, this morning patient stated that she has not passed urine for the last 24 hours, and this happens to her quite frequently, this has started since patient received her kidney transplant 3 years ago, patient is stating that when this happens she does self catheterization, on physical examination patient has distended abdomen and tenderness over suprapubic region, primary nurse was instructed to do a bladder scan and if urinary retention to do intermittent catheterization. Otherwise patient is denying any fever, chills, nausea, vomiting, diarrhea, constipation. Reason For Visit: HYPERKALEMIA,CONSTIPATION,URINARY TRACT INFECTION Physical Exam Vital Signs: Temp Pulse Resp BP Pulse Ox 97.9 F 80 20 158/68 H 98 08/20/20 12:31 08/20/20 12:31 08/20/20 12:31 08/20/20 12:31 08/20/20 12:31 Intake & Output 08/19/20 08/20/20 08/21/20 06:59 06:59 06:59 Intake Total 1000 1446 800 Balance 1000 1446 800 Weight 84.36 kg General appearance: PRESENT: no acute distress, obese, well-developed, well- nourished Neck exam: ABSENT: carotid bruit, JVD, lymphadenopathy, thyromegaly Respiratory exam: PRESENT: clear to auscultation maggi. ABSENT: rales, rhonchi, wheezes Cardiovascular exam: PRESENT: RRR. ABSENT: diastolic murmur, rubs, systolic murmur GI/Abdominal exam: PRESENT: normal bowel sounds, soft, tenderness - Suprapubic tenderness.. ABSENT: distended, guarding, mass, organolmegaly, rebound Neurological exam: PRESENT: alert, awake, oriented to person, oriented to place, oriented to time, oriented to situation, CN II-XII grossly intact. ABSENT: motor sensory deficit Skin exam: PRESENT: dry, intact, warm. ABSENT: cyanosis, rash Results Laboratory Results: 08/18/20 20:40 08/20/20 04:47 08/20/20 04:47 Sodium 138.5 Potassium 4.6 Chloride 107 Carbon Dioxide 22 Anion Gap 10 BUN 30 H Creatinine 1.27 H Est GFR ( Amer) 51 L Glucose 105 Calcium 9.5 Magnesium 1.8 Impressions: Head CT 08/18/20 21:24 IMPRESSION: 1. No acute hemorrhage or mass lesion. 2. Diffuse global volume loss with white matter changes consistent with small vessel ischemic disease. 3. Abnormal appearance of the left globe. This is stable KUB X-Ray 08/18/20 21:24 IMPRESSION: 1. Moderate stool in the colon. No obstruction. 2. IUD device is present in the pelvis. 3. Extensive vascular calcifications. Assessment and Plan - Diagnosis (1) AUNG (acute kidney injury) Is this a current diagnosis for this admission?: Yes Plan: Significant improvement. Creatinine 1.2 went down to 1.18 with IV fluids Kidney transplant recipient Cautious volume resuscitation guided by volume status. Monitor volume status and electrolytes. Replace electrolytes as needed. Avoid nephrotoxic meds. Outpatient nephrology follow-up. (2) Diabetes mellitus type 2 in obese Is this a current diagnosis for this admission?: Yes Plan: Well controlled. Hemoglobin A1c 6.5%. Continue diabetic diet. Sliding scale insulin. Basal insulin. Prandial insulin. Accu-Chek. Hypoglycemic protocol. Resume home meds upon discharge. Outpatient PCP follow-up. (3) History of coronary artery disease Is this a current diagnosis for this admission?: Yes Plan: Denies any anginal symptoms. Continue beta-blockers, antiplatelets, statins. Outpatient PCP and cardiology follow-up. (4) Hypercholesteremia Is this a current diagnosis for this admission?: Yes Plan: Continue Lipitor (5) Hyperkalemia Is this a current diagnosis for this admission?: Yes Plan: Resolved. 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 -Follows at [facility] -Resumed her Prograf, Myfortic, prednisone (8) Peripheral vascular disease Is this a current diagnosis for this admission?: Yes Plan: Continue aspirin and Lipitor (9) Urinary tract infection Qualifiers: Urinary tract infection type: site unspecified Hematuria presence: with hematuria Qualified Code(s): N39.0 - Urinary tract infection, site not specified; R31.9 - Hematuria, unspecified Is this a current diagnosis for this admission?: Yes Plan: -Kidney transplant patient who came in due to urinary frequency and dysuria -UA positive for leukocyte esterase moderate, urine WBC 133, urine blood small -Received meropenem switched to Zosyn -Urine culture pending de-escalate antibiotics as needed (10) Constipation Qualifiers: Constipation type: unspecified constipation type Qualified Code(s): K59.00 - Constipation, unspecified Is this a current diagnosis for this admission?: Yes Plan: -Resolved with Kayexalate (11) Urinary retention Is this a current diagnosis for this admission?: Yes Plan: Patient gives history of intermittent urinary retention for the last 3 years since receiving kidney transplant. Patient is stating that she does intermittent self-catheterization at home. Bladder scan showed urinary retention. Straight cath produced 1300 cc of urine. Monitor urine output, bladder scan 3 times daily, straight cath if urine volume more than 500. Outpatient PCP and urology follow-up. - Time Time Spent with patient: 25-34 minutes Anticipated Discharge Disposition: Home with Home Health Anticipated Discharge Timeframe: within 48 hours
[2020-08-20] MEDS: TEMAZEPAM 15 MG CAPSULE PO SCH (22:22)
[2020-08-20] MEDS: INSULIN GLARGINE,HUM.REC.ANLOG 1,000 UNIT/10 ML VIAL SUBCUT SCH (22:22)
[2020-08-21] MEDS: PIPERACILLIN SODIUM/TAZOBACTAM 3.375 GM in NORMAL SALINE 100 ML IV SCH ×5 (00:20→23:41)
[2020-08-21] MEDS ORDERED: AMLODIPINE BESYLATE 5 MG TABLET PO ONE (00:30)
[2020-08-21 05:25] LABS: ABSOLUTE EOSINOPHILS # (AUTO) 0.1 10^3/uL (0.0-0.6); ABSOLUTE LYMPHOCYTES (AUTO) 0.7 10^3/uL (0.5-4.7); ABSOLUTE MONOCYTES (AUTO) 0.4 10^3/uL (0.1-1.4); ABSOLUTE NEUT (AUTO) 2.2 10^3/uL (1.7-8.2); BASOPHILS % (AUTO) 1.2 % (0-2); EOSINOPHILS % (AUTO) 3.2 % (0-6); HEMATOCRIT 34.9 % (36.0-47.0); HEMOGLOBIN 11.8 g/dL (12.0-15.5); LYMPHOCYTES % (AUTO) 20.5 % (13-45); MEAN CORPUSCULAR HEMOGLOBIN 28.1 pg (27.0-33.4); MEAN CORPUSCULAR HGB CONC 33.8 g/dL (32.0-36.0); MEAN CORPUSCULAR VOLUME 83 fl (80-97); MONOCYTES % (AUTO) 12.1 % (3-13); PLATELET COUNT 124 10^3/uL (150-450); RED BLOOD COUNT 4.19 10^6/uL (3.72-5.28); RED CELL DISTRIBUTION WIDTH 14.3 % (11.5-14.0); TOTAL CELLS COUNTED % (AUTO) 100 %; WHITE BLOOD COUNT 3.5 10^3/uL (4.0-10.5)
[2020-08-21] MEDS: HEPARIN SOD (PORCINE) 5,000 UNIT/ML 1 ML VIAL SUBCUT SCH ×3 (05:38→21:49)
[2020-08-21 05:56] LABS: ALBUMIN 3.1 g/dL (3.5-5.0); ALKALINE PHOSPHATASE 72 U/L (38-126); ANION GAP 8 (5-19); ASPARTATE AMINO TRANSFERASE 23 U/L (14-36); BILIRUBIN,DIRECT 0.3 mg/dL (0.0-0.4); BILIRUBIN,TOTAL 1.3 mg/dL (0.2-1.3); BLOOD UREA NITROGEN 21 mg/dL (7-20); CALCIUM 9.3 mg/dL (8.4-10.2); CARBON DIOXIDE 22 mmol/L (22-30); CHLORIDE 109 mmol/L (98-107); GLUCOSE 93 mg/dL (75-110); POTASSIUM 4.2 mmol/L (3.6-5.0); TOTAL PROTEIN 6.1 g/dL (6.3-8.2)
[2020-08-21 06:09] LABS: FREE T4 (FREE THYROXINE) 1.31 ng/dL (0.78-2.19)
[2020-08-21 06:24] LABS: THYROID STIMULATING HORMONE 2.13 uIU/mL (0.47-4.68)
[2020-08-21 06:58] LABS: FOLATE 5.26 ng/mL (>2.76)
[2020-08-21] MEDS: INSULIN LISPRO 100 UNIT/ML 3 ML VIAL SUBCUT SCH ×4 (07:12→21:49)
[2020-08-21] MEDS: PREDNISONE 5 MG TABLET PO SCH (07:47)
[2020-08-21] MEDS ORDERED: AMLODIPINE BESYLATE 5 MG TABLET PO SCH (10:00)
[2020-08-21] MEDS ORDERED: CARVEDILOL 6.25 MG TABLET PO SCH ×2 (10:00→22:00)
[2020-08-21] MEDS ORDERED: CARVEDILOL 3.125 MG TABLET PO SCH (10:00)
[2020-08-21] MEDS: DOCUSATE SODIUM 100 MG CAPSULE PO SCH ×2 (10:26→17:30)
[2020-08-21] MEDS: ASPIRIN 81 MG TABLET, ENT COATED PO SCH (10:27)
[2020-08-21] MEDS: FAMOTIDINE 20 MG TABLET PO SCH ×2 (10:27→21:49)
[2020-08-21] MEDS: TACROLIMUS ANHYDROUS 1 MG CAPSULE PO SCH ×2 (10:28→21:49)
[2020-08-21] MEDS ORDERED: CARVEDILOL 6.25 MG TABLET PO ONE (14:45)
[2020-08-21] MEDS ORDERED: HYDRALAZINE HCL 25 MG TABLET PO ONE (16:45)
--- NOTE | 2020-08-21 18:25 | PDOC PROGRESS REPORT ---
Subjective Progress Note for:: 08/21/20 Subjective:: As per admitting physician HETAL BERMAN is a 69 year old female who presented to the emergency room with a 2-week history of urinary frequency. She admits the gradual onset of urinary frequency 2 weeks ago which has not improved despite being treated with a full course of oral Cipro. Her frequency became severe on the evening of 08/17/2020 with the urgent need to urinate occurring every 30 minutes. Her urinary frequency (and urgency) has been accompanied by generalized malaise and weakness and has been associated with intermittent mental confusion for the last 24 hours and constipation x1 week. She denies other associated or accompanying signs and symptoms. She admits prior similar episodes with urinary tract infections. She has not identified any aggravating or ameliorating factors for her urinary frequency. In the emergency room she was found to have pyuria and an elevated serum potassium of 5.7. She is noted to be a renal transplant patient and was subsequently admitted to the hospitalist service on observation status for further evaluation and treatment. 08/20/2020. Overnight patient was having urgency however could not pass urine, this morning patient stated that she has not passed urine for the last 24 hours, and this happens to her quite frequently, this has started since patient received her kidney transplant 3 years ago, patient is stating that when this happens she does self catheterization, on physical examination patient has distended abdomen and tenderness over suprapubic region, primary nurse was instructed to do a bladder scan and if urinary retention to do intermittent catheterization. Otherwise patient is denying any fever, chills, nausea, vomiting, diarrhea, constipation. 08/21/2020. No acute events overnight. Denies any fever, chills, nausea, vomiting, diarrhea, constipation or any urinary symptoms. Patient is BP is not optimized. Possible discharge home tomorrow. Reason For Visit: HYPERKALEMIA,CONSTIPATION,URINARY TRACT INFECTION Physical Exam Vital Signs: Temp Pulse Resp BP Pulse Ox 97.2 F 76 18 165/78 H 99 08/21/20 15:49 08/21/20 15:49 08/21/20 15:49 08/21/20 16:59 08/21/20 15:49 Intake & Output 08/20/20 08/21/20 08/22/20 06:59 06:59 06:59 Intake Total 1446 1800 1000 Output Total 2636 Balance 1446 -836 1000 Weight 84.36 kg General appearance: PRESENT: no acute distress, obese Neck exam: ABSENT: carotid bruit, JVD, lymphadenopathy, thyromegaly Respiratory exam: PRESENT: clear to auscultation maggi. ABSENT: rales, rhonchi, wheezes Cardiovascular exam: PRESENT: RRR. ABSENT: diastolic murmur, rubs, systolic murmur GI/Abdominal exam: PRESENT: normal bowel sounds, soft. ABSENT: distended, guarding, mass, organolmegaly, rebound, tenderness Gentrourinary exam: PRESENT: indwelling catheter Neurological exam: PRESENT: alert, awake, oriented to person, oriented to place, oriented to time, oriented to situation, CN II-XII grossly intact. ABSENT: motor sensory deficit Results Laboratory Results: 08/21/20 04:28 08/21/20 04:28 08/21/20 08/21/20 08/21/20 04:28 04:28 04:28 WBC 3.5 L RBC 4.19 Hgb 11.8 L Hct 34.9 L MCV 83 MCH 28.1 MCHC 33.8 RDW 14.3 H Plt Count 124 L Seg Neutrophils % 63.0 Sodium 139.0 Potassium 4.2 Chloride 109 H Carbon Dioxide 22 Anion Gap 8 BUN 21 H Creatinine 1.25 Est GFR ( Amer) 52 L Glucose 93 Calcium 9.3 Magnesium 1.7 Total Bilirubin 1.3 AST 23 Alkaline Phosphatase 72 Total Protein 6.1 L Albumin 3.1 L Vitamin B12 616.0 Folate 5.26 TSH 2.13 Free T4 1.31 08/18/20 22:05 Clean Catch Midstream Urine Culture - Final Urogenital Kari Impressions: Head CT 08/18/20 21:24 IMPRESSION: 1. No acute hemorrhage or mass lesion. 2. Diffuse global volume loss with white matter changes consistent with small vessel ischemic disease. 3. Abnormal appearance of the left globe. This is stable KUB X-Ray 08/18/20 21:24 IMPRESSION: 1. Moderate stool in the colon. No obstruction. 2. IUD device is present in the pelvis. 3. Extensive vascular calcifications. Assessment and Plan - Diagnosis (1) AUNG (acute kidney injury) Is this a current diagnosis for this admission?: Yes Plan: Significant improvement. Creatinine 1.2 went down to 1.18 with IV fluids Kidney transplant recipient Cautious volume resuscitation guided by volume status. Monitor volume status and electrolytes. Replace electrolytes as needed. Avoid nephrotoxic meds. Outpatient nephrology follow-up. (2) Diabetes mellitus type 2 in obese Is this a current diagnosis for this admission?: Yes Plan: Well controlled. Hemoglobin A1c 6.5%. Continue diabetic diet. Sliding scale insulin. Basal insulin. Prandial insulin. Accu-Chek. Hypoglycemic protocol. Resume home meds upon discharge. Outpatient PCP follow-up. (3) History of coronary artery disease Is this a current diagnosis for this admission?: Yes Plan: Denies any anginal symptoms. Continue beta-blockers, antiplatelets, statins. Outpatient PCP and cardiology follow-up. (4) Hypercholesteremia Is this a current diagnosis for this admission?: Yes Plan: Continue Lipitor (5) Hyperkalemia Is this a current diagnosis for this admission?: Yes Plan: Resolved. (6) Hypertension Qualifiers: Hypertension type: essential hypertension Qualified Code(s): I10 - Essential (primary) hypertension Is this a current diagnosis for this admission?: Yes Plan: Not optimized. Euvolemic. Continue current meds. Adjust meds as needed. Outpatient PCP follow-up. 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 -Follows at [facility] -Resumed her Prograf, Myfortic, prednisone (8) Peripheral vascular disease Is this a current diagnosis for this admission?: Yes Plan: Continue aspirin and Lipitor (9) Urinary tract infection Qualifiers: Urinary tract infection type: site unspecified Hematuria presence: with hematuria Qualified Code(s): N39.0 - Urinary tract infection, site not specified; R31.9 - Hematuria, unspecified Is this a current diagnosis for this admission?: Yes Plan: -Kidney transplant patient who came in due to urinary frequency and dysuria -UA positive for leukocyte esterase moderate, urine WBC 133, urine blood small -Received meropenem switched to Zosyn -Urine culture pending de-escalate antibiotics as needed (10) Constipation Qualifiers: Constipation type: unspecified constipation type Qualified Code(s): K59.00 - Constipation, unspecified Is this a current diagnosis for this admission?: Yes Plan: -Resolved with Kayexalate (11) Urinary retention Is this a current diagnosis for this admission?: Yes Plan: Patient gives history of intermittent urinary retention for the last 3 years since receiving kidney transplant. Patient is stating that she does intermittent self-catheterization at home. Bladder scan showed urinary retention. Straight cath produced 1300 cc of urine. Monitor urine output, bladder scan 3 times daily, straight cath if urine volume more than 500. Outpatient PCP and urology follow-up. - Time Time Spent with patient: 35 or more minutes Medications reviewed and adjusted accordingly: Yes Anticipated Discharge Disposition: Home with Home Health Anticipated Discharge Timeframe: within 24 hours
[2020-08-21] MEDS: TEMAZEPAM 15 MG CAPSULE PO SCH (21:49)
[2020-08-21] MEDS: CARVEDILOL 12.5 MG TABLET PO SCH (21:49)
[2020-08-21] MEDS: INSULIN GLARGINE,HUM.REC.ANLOG 1,000 UNIT/10 ML VIAL SUBCUT SCH (21:50)
[2020-08-22] MEDS: HEPARIN SOD (PORCINE) 5,000 UNIT/ML 1 ML VIAL SUBCUT SCH ×2 (05:34→13:07)
[2020-08-22] MEDS: PIPERACILLIN SODIUM/TAZOBACTAM 3.375 GM in NORMAL SALINE 100 ML IV SCH ×4 (05:40→23:46)
[2020-08-22] MEDS: INSULIN LISPRO 100 UNIT/ML 3 ML VIAL SUBCUT SCH ×4 (07:42→21:26)
[2020-08-22] MEDS ORDERED: AMLODIPINE BESYLATE 5 MG TABLET PO SCH ×2 (08:00→18:00)
[2020-08-22] MEDS: PREDNISONE 5 MG TABLET PO SCH (08:08)
[2020-08-22] MEDS: ASPIRIN 81 MG TABLET, ENT COATED PO SCH (10:14)
[2020-08-22] MEDS: DOCUSATE SODIUM 100 MG CAPSULE PO SCH ×3 (10:14→17:26)
[2020-08-22] MEDS: CARVEDILOL 12.5 MG TABLET PO SCH ×2 (10:15→21:26)
[2020-08-22] MEDS: TACROLIMUS ANHYDROUS 1 MG CAPSULE PO SCH ×2 (10:15→21:25)
[2020-08-22] MEDS: FAMOTIDINE 20 MG TABLET PO SCH ×2 (10:15→21:26)
[2020-08-22] MEDS ORDERED: HYDRALAZINE HCL 50 MG TABLET PO ONE (11:30)
[2020-08-22] MEDS ORDERED: HYDRALAZINE HCL 25 MG TABLET PO ONE (16:15)
--- NOTE | 2020-08-22 16:42 | PDOC PROGRESS REPORT ---
Subjective Progress Note for:: 08/22/20 Subjective:: As per admitting physician HETAL BERMAN is a 69 year old female who presented to the emergency room with a 2-week history of urinary frequency. She admits the gradual onset of urinary frequency 2 weeks ago which has not improved despite being treated with a full course of oral Cipro. Her frequency became severe on the evening of 08/17/2020 with the urgent need to urinate occurring every 30 minutes. Her urinary frequency (and urgency) has been accompanied by generalized malaise and weakness and has been associated with intermittent mental confusion for the last 24 hours and constipation x1 week. She denies other associated or accompanying signs and symptoms. She admits prior similar episodes with urinary tract infections. She has not identified any aggravating or ameliorating factors for her urinary frequency. In the emergency room she was found to have pyuria and an elevated serum potassium of 5.7. She is noted to be a renal transplant patient and was subsequently admitted to the hospitalist service on observation status for further evaluation and treatment. 08/20/2020. Overnight patient was having urgency however could not pass urine, this morning patient stated that she has not passed urine for the last 24 hours, and this happens to her quite frequently, this has started since patient received her kidney transplant 3 years ago, patient is stating that when this happens she does self catheterization, on physical examination patient has distended abdomen and tenderness over suprapubic region, primary nurse was instructed to do a bladder scan and if urinary retention to do intermittent catheterization. Otherwise patient is denying any fever, chills, nausea, vomiting, diarrhea, constipation. 08/21/2020. No acute events overnight. Denies any fever, chills, nausea, vomiting, diarrhea, constipation or any urinary symptoms. Patient is BP is not optimized. Possible discharge home tomorrow. 08/22/2020. No acute events overnight. Patient BP is not optimized yet but improving, plan was to discharge her home after blood pressures optimized however as per patient's observation patient was noted to be confused and was having visual hallucination, on my evaluation patient is alert and oriented x4, does not have any focal neurological deficit. Patient probably sundowning, will check CBC and CMP and repeat UA. Once BP is optimized patient can be discharged home. Reason For Visit: HYPERKALEMIA,CONSTIPATION,URINARY TRACT INFECTION Physical Exam Vital Signs: Temp Pulse Resp BP Pulse Ox 97.5 F 69 18 159/54 H 97 08/22/20 15:43 08/22/20 15:43 08/22/20 15:43 08/22/20 15:43 08/22/20 15:43 Intake & Output 08/21/20 08/22/20 08/23/20 06:59 06:59 06:59 Intake Total 1800 1450 236 Output Total 2636 1900 475 Balance -836 -450 -239 Weight 84.36 kg 84.36 kg General appearance: PRESENT: no acute distress, obese, well-developed, well- nourished Respiratory exam: PRESENT: clear to auscultation maggi. ABSENT: rales, rhonchi, wheezes Cardiovascular exam: PRESENT: RRR. ABSENT: diastolic murmur, rubs, systolic murmur GI/Abdominal exam: PRESENT: normal bowel sounds, soft. ABSENT: distended, guarding, mass, organolmegaly, rebound, tenderness Extremities exam: PRESENT: full ROM, other - Bilateral lower extremity stasis dermatitis.. ABSENT: calf tenderness, clubbing, pedal edema Neurological exam: PRESENT: alert, awake, oriented to person, oriented to place, oriented to time, oriented to situation, CN II-XII grossly intact. ABSENT: motor sensory deficit Results Laboratory Results: 08/21/20 04:28 08/21/20 04:28 08/18/20 22:05 Clean Catch Midstream Urine Culture - Final Urogenital Kari Impressions: Head CT 08/18/20 21:24 IMPRESSION: 1. No acute hemorrhage or mass lesion. 2. Diffuse global volume loss with white matter changes consistent with small vessel ischemic disease. 3. Abnormal appearance of the left globe. This is stable KUB X-Ray 08/18/20 21:24 IMPRESSION: 1. Moderate stool in the colon. No obstruction. 2. IUD device is present in the pelvis. 3. Extensive vascular calcifications. Assessment and Plan - Diagnosis (1) AUNG (acute kidney injury) Is this a current diagnosis for this admission?: Yes Plan: Significant improvement. Creatinine 1.2 went down to 1.18 with IV fluids Kidney transplant recipient Cautious volume resuscitation guided by volume status. Monitor volume status and electrolytes. Replace electrolytes as needed. Avoid nephrotoxic meds. Outpatient nephrology follow-up. (2) Diabetes mellitus type 2 in obese Is this a current diagnosis for this admission?: Yes Plan: Well controlled. Hemoglobin A1c 6.5%. Continue diabetic diet. Sliding scale insulin. Basal insulin. Prandial insulin. Accu-Chek. Hypoglycemic protocol. Resume home meds upon discharge. Outpatient PCP follow-up. (3) History of coronary artery disease Is this a current diagnosis for this admission?: Yes Plan: Denies any anginal symptoms. Continue beta-blockers, antiplatelets, statins. Outpatient PCP and cardiology follow-up. (4) Hypercholesteremia Is this a current diagnosis for this admission?: Yes Plan: Continue Lipitor (5) Hyperkalemia Is this a current diagnosis for this admission?: Yes Plan: Resolved. (6) Hypertension Qualifiers: Hypertension type: essential hypertension Qualified Code(s): I10 - Essential (primary) hypertension Is this a current diagnosis for this admission?: Yes Plan: Not optimized. Euvolemic. Continue current meds. Adjust meds as needed. Outpatient PCP follow-up. 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 -Follows at [facility] -Resumed her Prograf, Myfortic, prednisone (8) Peripheral vascular disease Is this a current diagnosis for this admission?: Yes Plan: Continue aspirin and Lipitor (9) Urinary tract infection Qualifiers: Urinary tract infection type: site unspecified Hematuria presence: with hematuria Qualified Code(s): N39.0 - Urinary tract infection, site not specified; R31.9 - Hematuria, unspecified Is this a current diagnosis for this admission?: Yes Plan: -Kidney transplant patient who came in due to urinary frequency and dysuria -UA positive for leukocyte esterase moderate, urine WBC 133, urine blood small -Received meropenem switched to Zosyn -Urine culture pending de-escalate antibiotics as needed (10) Constipation Qualifiers: Constipation type: unspecified constipation type Qualified Code(s): K59.00 - Constipation, unspecified Is this a current diagnosis for this admission?: Yes Plan: -Resolved with Kayexalate (11) Urinary retention Is this a current diagnosis for this admission?: Yes Plan: Patient gives history of intermittent urinary retention for the last 3 years since receiving kidney transplant. Patient is stating that she does intermittent self-catheterization at home. Bladder scan showed urinary retention. Straight cath produced 1300 cc of urine. Monitor urine output, bladder scan 3 times daily, straight cath if urine volume more than 500. Outpatient PCP and urology follow-up. - Time Time Spent with patient: 25-34 minutes Medications reviewed and adjusted accordingly: Yes Anticipated Discharge Disposition: Home with Home Health Anticipated Discharge Timeframe: within 24 hours
[2020-08-22 17:19] LABS: APPEARANCE,URINE SLIGHTLY-CLOUDY; BILIRUBIN,URINE NEGATIVE (NEGATIVE); COLOR,URINE YELLOW; GLUCOSE, URINE NEGATIVE (NEGATIVE); KETONES,URINE NEGATIVE (NEGATIVE); PROTEIN,URINE 100 mg/dL (NEGATIVE); UROBILINOGEN,URINE NEGATIVE mg/dL (<2.0)
[2020-08-22 17:35] LABS: ABSOLUTE EOSINOPHILS # (AUTO) 0.1 10^3/uL (0.0-0.6); ABSOLUTE LYMPHOCYTES (AUTO) 0.5 10^3/uL (0.5-4.7); ABSOLUTE MONOCYTES (AUTO) 0.4 10^3/uL (0.1-1.4); ABSOLUTE NEUT (AUTO) 3.1 10^3/uL (1.7-8.2); BASOPHILS % (AUTO) 1.2 % (0-2); EOSINOPHILS % (AUTO) 3.2 % (0-6); HEMATOCRIT 37.2 % (36.0-47.0); HEMOGLOBIN 12.7 g/dL (12.0-15.5); LYMPHOCYTES % (AUTO) 12.4 % (13-45); MEAN CORPUSCULAR HEMOGLOBIN 28.5 pg (27.0-33.4); MEAN CORPUSCULAR HGB CONC 34.2 g/dL (32.0-36.0); MEAN CORPUSCULAR VOLUME 83 fl (80-97); MONOCYTES % (AUTO) 9.4 % (3-13); PLATELET COUNT 101 10^3/uL (150-450); RED BLOOD COUNT 4.47 10^6/uL (3.72-5.28); RED CELL DISTRIBUTION WIDTH 14.3 % (11.5-14.0); SEGMENTED NEUTROPHILS % (AUTO) 73.8 % (42-78); TOTAL CELLS COUNTED % (AUTO) 100 %; WHITE BLOOD COUNT 4.2 10^3/uL (4.0-10.5)
[2020-08-22 17:54] LABS: ALBUMIN 3.6 g/dL (3.5-5.0); ALKALINE PHOSPHATASE 74 U/L (38-126); ANION GAP 13 (5-19); ASPARTATE AMINO TRANSFERASE 24 U/L (14-36); BILIRUBIN,DIRECT 0.3 mg/dL (0.0-0.4); BILIRUBIN,TOTAL 1.3 mg/dL (0.2-1.3); BLOOD UREA NITROGEN 19 mg/dL (7-20); CALCIUM 9.9 mg/dL (8.4-10.2); CARBON DIOXIDE 17 mmol/L (22-30); CHLORIDE 110 mmol/L (98-107); GLUCOSE 152 mg/dL (75-110); POTASSIUM 4.6 mmol/L (3.6-5.0); TOTAL PROTEIN 6.8 g/dL (6.3-8.2)
[2020-08-22] MEDS ORDERED: LUBIPROSTONE 24 MCG CAPSULE PO ONE (19:00)
[2020-08-22] MEDS: TEMAZEPAM 15 MG CAPSULE PO SCH (21:26)
[2020-08-22] MEDS: INSULIN GLARGINE,HUM.REC.ANLOG 1,000 UNIT/10 ML VIAL SUBCUT SCH (21:27)
[2020-08-23] MEDS ORDERED: AMLODIPINE BESYLATE 10 MG TABLET PO ONE (01:00)
[2020-08-23] MEDS ORDERED: AMLODIPINE BESYLATE 10 MG TABLET PO SCH ×3 (06:00→10:00)
[2020-08-23] MEDS: PIPERACILLIN SODIUM/TAZOBACTAM 3.375 GM in NORMAL SALINE 100 ML IV SCH (06:20)
[2020-08-23] MEDS: INSULIN LISPRO 100 UNIT/ML 3 ML VIAL SUBCUT SCH ×4 (07:25→22:08)
[2020-08-23] MEDS: PREDNISONE 5 MG TABLET PO SCH (07:45)
[2020-08-23] MEDS ORDERED: HYDRALAZINE HCL 25 MG TABLET PO SCH (08:30)
[2020-08-23] MEDS: CARVEDILOL 12.5 MG TABLET PO SCH ×2 (09:27→21:46)
[2020-08-23] MEDS: ASPIRIN 81 MG TABLET, ENT COATED PO SCH (09:27)
[2020-08-23] MEDS: FAMOTIDINE 20 MG TABLET PO SCH ×2 (09:28→21:47)
[2020-08-23] MEDS: DOCUSATE SODIUM 100 MG CAPSULE PO SCH ×2 (09:28→17:49)
[2020-08-23] MEDS: TACROLIMUS ANHYDROUS 1 MG CAPSULE PO SCH ×2 (09:28→21:47)
[2020-08-23 10:10] LABS: ABSOLUTE EOSINOPHILS # (AUTO) 0.2 10^3/uL (0.0-0.6); ABSOLUTE LYMPHOCYTES (AUTO) 0.7 10^3/uL (0.5-4.7); ABSOLUTE MONOCYTES (AUTO) 0.5 10^3/uL (0.1-1.4); ABSOLUTE NEUT (AUTO) 2.5 10^3/uL (1.7-8.2); BASOPHILS % (AUTO) 1.1 % (0-2); HEMOGLOBIN 11.7 g/dL (12.0-15.5); MEAN CORPUSCULAR HEMOGLOBIN 28.5 pg (27.0-33.4); MEAN CORPUSCULAR HGB CONC 34.3 g/dL (32.0-36.0); MEAN CORPUSCULAR VOLUME 83 fl (80-97); MONOCYTES % (AUTO) 12.3 % (3-13); PLATELET COUNT 104 10^3/uL (150-450); RED CELL DISTRIBUTION WIDTH 14.2 % (11.5-14.0); SEGMENTED NEUTROPHILS % (AUTO) 64.6 % (42-78); TOTAL CELLS COUNTED % (AUTO) 100 %; WHITE BLOOD COUNT 3.8 10^3/uL (4.0-10.5)
--- NOTE | 2020-08-23 14:27 | PDOC PROGRESS REPORT ---
Subjective Progress Note for:: 08/23/20 Subjective:: As per admitting physician HETAL BERMAN is a 69 year old female who presented to the emergency room with a 2-week history of urinary frequency. She admits the gradual onset of urinary frequency 2 weeks ago which has not improved despite being treated with a full course of oral Cipro. Her frequency became severe on the evening of 08/17/2020 with the urgent need to urinate occurring every 30 minutes. Her urinary frequency (and urgency) has been accompanied by generalized malaise and weakness and has been associated with intermittent mental confusion for the last 24 hours and constipation x1 week. She denies other associated or accompanying signs and symptoms. She admits prior similar episodes with urinary tract infections. She has not identified any aggravating or ameliorating factors for her urinary frequency. In the emergency room she was found to have pyuria and an elevated serum potassium of 5.7. She is noted to be a renal transplant patient and was subsequently admitted to the hospitalist service on observation status for further evaluation and treatment. 08/20/2020. Overnight patient was having urgency however could not pass urine, this morning patient stated that she has not passed urine for the last 24 hours, and this happens to her quite frequently, this has started since patient received her kidney transplant 3 years ago, patient is stating that when this happens she does self catheterization, on physical examination patient has distended abdomen and tenderness over suprapubic region, primary nurse was instructed to do a bladder scan and if urinary retention to do intermittent catheterization. Otherwise patient is denying any fever, chills, nausea, vomiting, diarrhea, constipation. 08/21/2020. No acute events overnight. Denies any fever, chills, nausea, vomiting, diarrhea, constipation or any urinary symptoms. Patient is BP is not optimized. Possible discharge home tomorrow. 08/22/2020. No acute events overnight. Patient BP is not optimized yet but improving, plan was to discharge her home after blood pressures optimized however as per patient's observation patient was noted to be confused and was having visual hallucination, on my evaluation patient is alert and oriented x4, does not have any focal neurological deficit. Patient probably sundowning, will check CBC and CMP and repeat UA. Once BP is optimized patient can be discharged home. 08/23/2020. No acute events overnight. Patient blood pressure is improving other unfortunate not optimized, and has not been confused or has had any altered mental status, on my encounter noted that patient had some dried blood from her right nostril, denies as any trauma to the nose or picking her nose, patient has history of thrombocytopenia however this admission is lower than her baseline, denies any hemoptysis, hematemesis, vaginal bleed, hematochezia or melena. Patient noted to have hematuria. Patient is alert and oriented, no darrick arent distress, denies any fever, chills, nausea, vomiting. Reason For Visit: HYPERKALEMIA,CONSTIPATION,URINARY TRACT INFECTION Physical Exam Vital Signs: Temp Pulse Resp BP Pulse Ox 97.6 F 69 14 148/53 H 100 08/23/20 07:40 08/23/20 07:40 08/23/20 07:40 08/23/20 07:40 08/23/20 07:40 Intake & Output 08/22/20 08/23/20 08/24/20 06:59 06:59 06:59 Intake Total 1450 356 Output Total 1900 1295 Balance -450 -939 Weight 84.36 kg 85 kg General appearance: PRESENT: obese Head exam: PRESENT: atraumatic, normocephalic Respiratory exam: PRESENT: clear to auscultation maggi. ABSENT: rales, rhonchi, wheezes Cardiovascular exam: PRESENT: RRR. ABSENT: diastolic murmur, rubs, systolic murmur Pulses: PRESENT: normal dorsalis pedis pul GI/Abdominal exam: PRESENT: normal bowel sounds, soft. ABSENT: distended, guarding, mass, organolmegaly, rebound, tenderness Extremities exam: PRESENT: full ROM. ABSENT: calf tenderness, clubbing, pedal edema Neurological exam: PRESENT: alert, awake, oriented to person, oriented to place, oriented to time, oriented to situation, CN II-XII grossly intact. ABSENT: motor sensory deficit Results Laboratory Results: 08/23/20 09:52 08/22/20 17:28 08/22/20 08/22/20 08/22/20 16:31 17:28 17:28 WBC 4.2 RBC 4.47 Hgb 12.7 Hct 37.2 MCV 83 MCH 28.5 MCHC 34.2 RDW 14.3 H Plt Count 101 L Seg Neutrophils % 73.8 Sodium 139.7 Potassium 4.6 Chloride 110 H Carbon Dioxide 17 L Anion Gap 13 BUN 19 Creatinine 1.25 Est GFR ( Amer) 52 L Glucose 152 H Calcium 9.9 Magnesium 1.7 Total Bilirubin 1.3 AST 24 Alkaline Phosphatase 74 Ammonia Total Protein 6.8 Albumin 3.6 Urine Color YELLOW Urine Appearance SLIGHTLY-CLOUDY Urine pH 5.0 Ur Specific [place] 1.030 Urine Protein 100 H Urine Glucose (UA) NEGATIVE Urine Ketones NEGATIVE Urine Blood MODERATE H Urine RBC (Auto) 68 08/22/20 08/23/20 17:28 09:52 WBC 3.8 L RBC 4.10 Hgb 11.7 L Hct 34.0 L MCV 83 MCH 28.5 MCHC 34.3 RDW 14.2 H Plt Count 104 L Seg Neutrophils % 64.6 Sodium Potassium Chloride Carbon Dioxide Anion Gap BUN Creatinine Est GFR ( Amer) Glucose Calcium Magnesium Total Bilirubin AST Alkaline Phosphatase Ammonia < 8.7 L Total Protein Albumin Urine Color Urine Appearance Urine pH Ur Specific [place] Urine Protein Urine Glucose (UA) Urine Ketones Urine Blood Urine RBC (Auto) Impressions: Head CT 08/18/20 21:24 IMPRESSION: 1. No acute hemorrhage or mass lesion. 2. Diffuse global volume loss with white matter changes consistent with small vessel ischemic disease. 3. Abnormal appearance of the left globe. This is stable KUB X-Ray 08/18/20 21:24 IMPRESSION: 1. Moderate stool in the colon. No obstruction. 2. IUD device is present in the pelvis. 3. Extensive vascular calcifications. Assessment and Plan - Diagnosis (1) AUNG (acute kidney injury) Is this a current diagnosis for this admission?: Yes Plan: Significant improvement. Creatinine at baseline. Creatinine 1.2 went down to 1.18 with IV fluids Kidney transplant recipient Cautious volume resuscitation guided by volume status. Monitor volume status and electrolytes. Replace electrolytes as needed. Avoid nephrotoxic meds. Outpatient nephrology follow-up. (2) Diabetes mellitus type 2 in obese Is this a current diagnosis for this admission?: Yes Plan: Well controlled. Hemoglobin A1c 6.5%. At times patient noted to be hypoglycemic, endorses low appetite. Continue diabetic diet. Sliding scale insulin. Basal insulin. Prandial insulin. Adjust insulin dosage as needed. Accu-Chek. Hypoglycemic protocol. Encourage frequent snacking if noted to be hypoglycemic. Continue Accu-Chek, if hypoglycemic contact physician and started on hypoglycemic protocol. Resume home meds upon discharge. Outpatient PCP follow-up. (3) History of coronary artery disease Is this a current diagnosis for this admission?: Yes Plan: Denies any anginal symptoms. Continue beta-blockers, antiplatelets, statins. Outpatient PCP and cardiology follow-up. (4) Hypercholesteremia Is this a current diagnosis for this admission?: Yes Plan: Continue Lipitor (5) Hyperkalemia Is this a current diagnosis for this admission?: Yes Plan: Resolved. (6) Hypertension Qualifiers: Hypertension type: essential hypertension Qualified Code(s): I10 - Essential (primary) hypertension Is this a current diagnosis for this admission?: Yes Plan: Not optimized. Euvolemic. Continue current meds. Adjust meds as needed. Outpatient PCP follow-up. 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 -Follows at [facility] -Resumed her Prograf, Myfortic, prednisone (8) Peripheral vascular disease Is this a current diagnosis for this admission?: Yes Plan: Continue aspirin and Lipitor (9) Urinary tract infection Qualifiers: Urinary tract infection type: site unspecified Hematuria presence: with hematuria Qualified Code(s): N39.0 - Urinary tract infection, site not specified; R31.9 - Hematuria, unspecified Is this a current diagnosis for this admission?: Yes Plan: Kidney transplant patient who came in due to urinary frequency and dysuria UA positive for leukocyte esterase moderate, urine WBC 133, urine blood small Received meropenem switched to Zosyn Received a complete course of IV antibiotics. Repeat UA negative. (10) Constipation Qualifiers: Constipation type: unspecified constipation type Qualified Code(s): K59.00 - Constipation, unspecified Is this a current diagnosis for this admission?: Yes Plan: -Resolved with Kayexalate (11) Urinary retention Is this a current diagnosis for this admission?: Yes Plan: Patient gives history of intermittent urinary retention for the last 3 years since receiving kidney transplant. Patient is stating that she does intermittent self-catheterization at home. Bladder scan showed urinary retention. Straight cath produced 1300 cc of urine. Monitor urine output, bladder scan 3 times daily, straight cath if urine volume more than 500. Outpatient PCP and urology follow-up. (12) Thrombocytopenia Is this a current diagnosis for this admission?: Yes Plan: Chronic. Baseline platelets [id number]. On this admission platelets are trending between 138-101. Doubt if this is heparin-induced thrombocytopenia patient does not fulfill all the criterias. Patient's heparin currently on hold. We will switch to nonheparinized DVT prophylaxis to be on the safe side. Will monitor for bleeding. Platelet levels tomorrow. - Time Time Spent with patient: 25-34 minutes Anticipated Discharge Disposition: Home with Home Health Anticipated Discharge Timeframe: within 48 hours
[2020-08-23] MEDS: HYDRALAZINE HCL 50 MG TABLET PO SCH ×2 (14:38→21:46)
[2020-08-23] MEDS: ARGATROBAN 250 MG/NS 250 ML (NON-ESRD) IV PRN ×2 (20:07)
[2020-08-23] MEDS: TEMAZEPAM 15 MG CAPSULE PO SCH (21:47)
[2020-08-23] MEDS: INSULIN GLARGINE,HUM.REC.ANLOG 1,000 UNIT/10 ML VIAL SUBCUT SCH (21:48)
[2020-08-24] MEDS: HYDRALAZINE HCL 50 MG TABLET PO SCH (05:30)
[2020-08-24 06:14] LABS: HEMATOCRIT 35.7 % (36.0-47.0); MEAN CORPUSCULAR HEMOGLOBIN 28.1 pg (27.0-33.4); MEAN CORPUSCULAR HGB CONC 33.6 g/dL (32.0-36.0); MEAN CORPUSCULAR VOLUME 84 fl (80-97); PLATELET COUNT 106 10^3/uL (150-450); RED BLOOD COUNT 4.27 10^6/uL (3.72-5.28); RED CELL DISTRIBUTION WIDTH 14.4 % (11.5-14.0); WHITE BLOOD COUNT 3.8 10^3/uL (4.0-10.5)
[2020-08-24 06:29] LABS: ANION GAP 9 (5-19); BLOOD UREA NITROGEN 22 mg/dL (7-20); CALCIUM 9.6 mg/dL (8.4-10.2); CARBON DIOXIDE 22 mmol/L (22-30); CHLORIDE 109 mmol/L (98-107); GLUCOSE 143 mg/dL (75-110); POTASSIUM 3.9 mmol/L (3.6-5.0)
[2020-08-24] MEDS: INSULIN LISPRO 100 UNIT/ML 3 ML VIAL SUBCUT SCH ×4 (09:41→21:56)
[2020-08-24] MEDS: PREDNISONE 5 MG TABLET PO SCH (09:50)
[2020-08-24] MEDS: FAMOTIDINE 20 MG TABLET PO SCH ×2 (09:50→21:55)
[2020-08-24] MEDS: AMLODIPINE BESYLATE 10 MG TABLET PO SCH (09:50)
[2020-08-24] MEDS: CARVEDILOL 12.5 MG TABLET PO SCH ×2 (09:50→21:55)
[2020-08-24] MEDS: TACROLIMUS ANHYDROUS 1 MG CAPSULE PO SCH ×2 (09:51→21:55)
[2020-08-24] MEDS: DOCUSATE SODIUM 100 MG CAPSULE PO SCH ×2 (09:51→17:06)
[2020-08-24] MEDS: ASPIRIN 81 MG TABLET, ENT COATED PO SCH (09:51)
[2020-08-24] MEDS ORDERED: LISINOPRIL 10 MG TABLET PO SCH (10:00)
--- NOTE | 2020-08-24 10:56 | PDOC PROGRESS REPORT ---
Subjective Progress Note for:: 08/24/20 Subjective:: As per admitting physician HETAL BERMAN is a 69 year old female who presented to the emergency room with a 2-week history of urinary frequency. She admits the gradual onset of urinary frequency 2 weeks ago which has not improved despite being treated with a full course of oral Cipro. Her frequency became severe on the evening of 08/17/2020 with the urgent need to urinate occurring every 30 minutes. Her urinary frequency (and urgency) has been accompanied by generalized malaise and weakness and has been associated with intermittent mental confusion for the last 24 hours and constipation x1 week. She denies other associated or accompanying signs and symptoms. She admits prior similar episodes with urinary tract infections. She has not identified any aggravating or ameliorating factors for her urinary frequency. In the emergency room she was found to have pyuria and an elevated serum potassium of 5.7. She is noted to be a renal transplant patient and was subsequently admitted to the hospitalist service on observation status for further evaluation and treatment. 08/20/2020. Overnight patient was having urgency however could not pass urine, this morning patient stated that she has not passed urine for the last 24 hours, and this happens to her quite frequently, this has started since patient received her kidney transplant 3 years ago, patient is stating that when this happens she does self catheterization, on physical examination patient has distended abdomen and tenderness over suprapubic region, primary nurse was instructed to do a bladder scan and if urinary retention to do intermittent catheterization. Otherwise patient is denying any fever, chills, nausea, vomiting, diarrhea, constipation. 08/21/2020. No acute events overnight. Denies any fever, chills, nausea, vomiting, diarrhea, constipation or any urinary symptoms. Patient is BP is not optimized. Possible discharge home tomorrow. 08/22/2020. No acute events overnight. Patient BP is not optimized yet but improving, plan was to discharge her home after blood pressures optimized however as per patient's observation patient was noted to be confused and was having visual hallucination, on my evaluation patient is alert and oriented x4, does not have any focal neurological deficit. Patient probably sundowning, will check CBC and CMP and repeat UA. Once BP is optimized patient can be discharged home. 08/23/2020. No acute events overnight. Patient blood pressure is improving other unfortunate not optimized, and has not been confused or has had any altered mental status, on my encounter noted that patient had some dried blood from her right nostril, denies as any trauma to the nose or picking her nose, patient has history of thrombocytopenia however this admission is lower than her baseline, denies any hemoptysis, hematemesis, vaginal bleed, hematochezia or melena. Patient noted to have hematuria. Patient is alert and oriented, no darrick arent distress, denies any fever, chills, nausea, vomiting. 08/24/2020. No acute events overnight. Patient has not had any hallucinations, resting in bed no apparent distress, stating that she could not sleep much, has not had any more nosebleeds, her platelets are improving, unfortunately BP is not optimized, possible discharge home tomorrow. Denies any fever, chills, nausea, vomiting. Reason For Visit: HYPERKALEMIA, PYURIA, S/P RENAL TRANSPLANT Physical Exam Vital Signs: Temp Pulse Resp BP Pulse Ox 98.0 F 68 17 158/57 H 99 08/24/20 08:01 08/24/20 08:01 08/24/20 08:01 08/24/20 08:01 08/24/20 08:01 Intake & Output 08/23/20 08/24/20 08/25/20 06:59 06:59 06:59 Intake Total 356 Output Total 1295 525 Balance -939 -525 Weight 85 kg 85.6 kg General appearance: PRESENT: no acute distress, obese, well-developed, well-nourished Head exam: PRESENT: atraumatic, normocephalic Respiratory exam: PRESENT: clear to auscultation maggi. ABSENT: rales, rhonchi, wheezes Cardiovascular exam: PRESENT: RRR. ABSENT: diastolic murmur, rubs, systolic murmur GI/Abdominal exam: PRESENT: normal bowel sounds, soft. ABSENT: distended, guarding, mass, organolmegaly, rebound, tenderness Neurological exam: PRESENT: alert, awake, oriented to person, oriented to place, oriented to time, oriented to situation, CN II-XII grossly intact. ABSENT: motor sensory deficit Results Laboratory Results: 08/24/20 05:53 08/24/20 05:53 08/24/20 08/24/20 05:53 05:53 WBC 3.8 L RBC 4.27 Hgb 12.0 Hct 35.7 L MCV 84 MCH 28.1 MCHC 33.6 RDW 14.4 H Plt Count 106 L Sodium 139.5 Potassium 3.9 Chloride 109 H Carbon Dioxide 22 Anion Gap 9 BUN 22 H Creatinine 1.25 Est GFR ( Amer) 52 L Glucose 143 H Calcium 9.6 08/22/20 16:31 Catheterized Urine Urine Culture - Final NO GROWTH 2 DAYS 08/19/20 02:02 Blood Blood Culture - Final NO GROWTH IN 5 DAYS 08/19/20 00:35 Blood Blood Culture - Final NO GROWTH IN 5 DAYS Impressions: Head CT 08/18/20 21:24 IMPRESSION: 1. No acute hemorrhage or mass lesion. 2. Diffuse global volume loss with white matter changes consistent with small vessel ischemic disease. 3. Abnormal appearance of the left globe. This is stable KUB X-Ray 08/18/20 21:24 IMPRESSION: 1. Moderate stool in the colon. No obstruction. 2. IUD device is present in the pelvis. 3. Extensive vascular calcifications. Assessment and Plan - Diagnosis (1) Hypertension Qualifiers: Hypertension type: essential hypertension Qualified Code(s): I10 - Essential (primary) hypertension Is this a current diagnosis for this admission?: Yes Plan: Not optimized. Euvolemic. Continue beta-blockers, calcium channel blockers. DC hydralazine. Will start on lisinopril. Adjust meds as needed. Outpatient PCP follow-up. (2) Kidney transplant recipient Is this a current diagnosis for this admission?: Yes Plan: Received kidney transplant right due to kidney failure secondary to DM nephro eliazar -Follows at [facility] -Resumed her Prograf, Myfortic, prednisone (3) Hyperkalemia Is this a current diagnosis for this admission?: Yes Plan: Resolved. (4) Thrombocytopenia Is this a current diagnosis for this admission?: Yes Plan: Mild improvement. Chronic. Baseline platelets [id number]. On this admission platelets are trending between 138-101. Doubt if this is heparin-induced thrombocytopenia patient does not fulfill all the criterias. DC heparin. Continue argatroban. Pending platelet factor 4 antibodies. Will monitor for bleeding. Platelet levels tomorrow. (5) Diabetes mellitus type 2 in obese Is this a current diagnosis for this admission?: Yes (6) AUNG (acute kidney injury) Is this a current diagnosis for this admission?: Yes Plan: Significant improvement. Creatinine at baseline. Creatinine 1.2 went down to 1.18 with IV fluids Kidney transplant recipient Cautious volume resuscitation guided by volume status. Monitor volume status and electrolytes. Replace electrolytes as needed. Avoid nephrotoxic meds. Outpatient nephrology follow-up. (7) History of coronary artery disease Is this a current diagnosis for this admission?: Yes Plan: Denies any anginal symptoms. Continue beta-blockers, antiplatelets, statins. Outpatient PCP and cardiology follow-up. (8) Hypercholesteremia Is this a current diagnosis for this admission?: Yes Plan: Continue Lipitor (9) Peripheral vascular disease Is this a current diagnosis for this admission?: Yes Plan: Continue aspirin and Lipitor (10) Urinary tract infection Qualifiers: Urinary tract infection type: site unspecified Hematuria presence: with hematuria Qualified Code(s): N39.0 - Urinary tract infection, site not specified; R31.9 - Hematuria, unspecified Is this a current diagnosis for this admission?: Yes Plan: Kidney transplant patient who came in due to urinary frequency and dysuria UA positive for leukocyte esterase moderate, urine WBC 133, urine blood small Received meropenem switched to Zosyn Received a complete course of IV antibiotics. Repeat UA negative. (11) Constipation Qualifiers: Constipation type: unspecified constipation type Qualified Code(s): K59.00 - Constipation, unspecified Is this a current diagnosis for this admission?: Yes Plan: Chronic constipation. Home medication is Amitiza. High-fiber diet, continue current bowel regimen. (12) Urinary retention Is this a current diagnosis for this admission?: Yes Plan: Patient gives history of intermittent urinary retention for the last 3 years since receiving kidney transplant. Patient is stating that she does intermittent self-catheterization at home. Bladder scan showed urinary retention. Straight cath produced 1300 cc of urine. Currently on indwelling Small catheter. Adequate urine output. Outpatient PCP and urology follow-up. - Time Time Spent with patient: 25-34 minutes Medications reviewed and adjusted accordingly: Yes Anticipated Discharge Disposition: Home with Home Health Anticipated Discharge Timeframe: within 48 hours
[2020-08-24] MEDS ORDERED: LUBIPROSTONE 24 MCG CAPSULE PO ONE (11:15)
[2020-08-24] MEDS: ARGATROBAN 250 MG/NS 250 ML (NON-ESRD) IV PRN ×2 (20:49)
[2020-08-24] MEDS: TEMAZEPAM 15 MG CAPSULE PO SCH (21:55)
[2020-08-24] MEDS: INSULIN GLARGINE,HUM.REC.ANLOG 1,000 UNIT/10 ML VIAL SUBCUT SCH (21:56)
[2020-08-25 05:42] LABS: HEMATOCRIT 34.1 % (36.0-47.0); HEMOGLOBIN 11.6 g/dL (12.0-15.5); MEAN CORPUSCULAR HEMOGLOBIN 28.4 pg (27.0-33.4); MEAN CORPUSCULAR HGB CONC 33.9 g/dL (32.0-36.0); MEAN CORPUSCULAR VOLUME 84 fl (80-97); PLATELET COUNT 102 10^3/uL (150-450); RED BLOOD COUNT 4.08 10^6/uL (3.72-5.28); RED CELL DISTRIBUTION WIDTH 14.4 % (11.5-14.0); WHITE BLOOD COUNT 3.8 10^3/uL (4.0-10.5)
[2020-08-25 06:08] LABS: ANION GAP 7 (5-19); BLOOD UREA NITROGEN 26 mg/dL (7-20); CALCIUM 9.5 mg/dL (8.4-10.2); CARBON DIOXIDE 22 mmol/L (22-30); CHLORIDE 107 mmol/L (98-107); GLUCOSE 182 mg/dL (75-110); POTASSIUM 4.1 mmol/L (3.6-5.0)
[2020-08-25] MEDS: CARVEDILOL 12.5 MG TABLET PO SCH ×2 (10:00→22:26)
[2020-08-25] MEDS: INSULIN LISPRO 100 UNIT/ML 3 ML VIAL SUBCUT SCH ×4 (10:00→22:26)
[2020-08-25] MEDS: TACROLIMUS ANHYDROUS 1 MG CAPSULE PO SCH ×2 (10:00→22:26)
[2020-08-25] MEDS: ASPIRIN 81 MG TABLET, ENT COATED PO SCH (10:00)
[2020-08-25] MEDS: PREDNISONE 5 MG TABLET PO SCH (10:00)
[2020-08-25] MEDS: LISINOPRIL 10 MG TABLET PO SCH (10:00)
[2020-08-25] MEDS: AMLODIPINE BESYLATE 10 MG TABLET PO SCH (10:00)
[2020-08-25] MEDS: FAMOTIDINE 20 MG TABLET PO SCH ×2 (10:00→22:26)
[2020-08-25] MEDS: DOCUSATE SODIUM 100 MG CAPSULE PO SCH ×2 (10:07→17:08)
--- NOTE | 2020-08-25 16:11 | PDOC PROGRESS REPORT ---
Subjective Progress Note for:: 08/25/20 Subjective:: As per admitting physician HETAL BERMAN is a 69 year old female who presented to the emergency room with a 2-week history of urinary frequency. She admits the gradual onset of urinary frequency 2 weeks ago which has not improved despite being treated with a full course of oral Cipro. Her frequency became severe on the evening of 08/17/2020 with the urgent need to urinate occurring every 30 minutes. Her urinary frequency (and urgency) has been accompanied by generalized malaise and weakness and has been associated with intermittent mental confusion for the last 24 hours and constipation x1 week. She denies other associated or accompanying signs and symptoms. She admits prior similar episodes with urinary tract infections. She has not identified any aggravating or ameliorating factors for her urinary frequency. In the emergency room she was found to have pyuria and an elevated serum potassium of 5.7. She is noted to be a renal transplant patient and was subsequently admitted to the hospitalist service on observation status for further evaluation and treatment. 08/20/2020. Overnight patient was having urgency however could not pass urine, this morning patient stated that she has not passed urine for the last 24 hours, and this happens to her quite frequently, this has started since patient received her kidney transplant 3 years ago, patient is stating that when this happens she does self catheterization, on physical examination patient has distended abdomen and tenderness over suprapubic region, primary nurse was instructed to do a bladder scan and if urinary retention to do intermittent catheterization. Otherwise patient is denying any fever, chills, nausea, vomiting, diarrhea, constipation. 08/21/2020. No acute events overnight. Denies any fever, chills, nausea, vomiting, diarrhea, constipation or any urinary symptoms. Patient is BP is not optimized. Possible discharge home tomorrow. 08/22/2020. No acute events overnight. Patient BP is not optimized yet but improving, plan was to discharge her home after blood pressures optimized however as per patient's observation patient was noted to be confused and was having visual hallucination, on my evaluation patient is alert and oriented x4, does not have any focal neurological deficit. Patient probably sundowning, will check CBC and CMP and repeat UA. Once BP is optimized patient can be discharged home. 08/23/2020. No acute events overnight. Patient blood pressure is improving other unfortunate not optimized, and has not been confused or has had any altered mental status, on my encounter noted that patient had some dried blood from her right nostril, denies as any trauma to the nose or picking her nose, patient has history of thrombocytopenia however this admission is lower than her baseline, denies any hemoptysis, hematemesis, vaginal bleed, hematochezia or melena. Patient noted to have hematuria. Patient is alert and oriented, no darrick arent distress, denies any fever, chills, nausea, vomiting. 08/24/2020. No acute events overnight. Patient has not had any hallucinations, resting in bed no apparent distress, stating that she could not sleep much, has not had any more nosebleeds, her platelets are improving, unfortunately BP is not optimized, possible discharge home tomorrow. Denies any fever, chills, nausea, vomiting. 08/25/2020. No acute events overnight. Pressure is improving, platelets are stable, oncology has evaluated patient and recommending outpatient follow-up. Patient denies any fever, chills, nausea, vomiting. Reason For Visit: HYPERKALEMIA, PYURIA, S/P RENAL TRANSPLANT Physical Exam Vital Signs: Temp Pulse Resp BP Pulse Ox 98.3 F 69 17 147/57 H 100 08/25/20 12:07 08/25/20 14:00 08/25/20 12:07 08/25/20 12:07 08/25/20 12:07 Intake & Output 08/24/20 08/25/20 08/26/20 06:59 06:59 06:59 Intake Total 1615 120 Output Total 525 570 250 Balance -525 1045 -130 Weight 85.6 kg 85.7 kg General appearance: PRESENT: no acute distress, obese, well-developed, well- nourished Head exam: PRESENT: atraumatic, normocephalic Neck exam: ABSENT: carotid bruit, JVD, lymphadenopathy, thyromegaly Respiratory exam: PRESENT: clear to auscultation maggi. ABSENT: rales, rhonchi, wheezes Cardiovascular exam: PRESENT: RRR. ABSENT: diastolic murmur, rubs, systolic murmur Neurological exam: PRESENT: alert, awake, oriented to person, oriented to place, oriented to time, oriented to situation, CN II-XII grossly intact. ABSENT: motor sensory deficit Results Laboratory Results: 08/25/20 04:57 08/25/20 04:57 08/25/20 08/25/20 04:57 04:57 WBC 3.8 L RBC 4.08 Hgb 11.6 L Hct 34.1 L MCV 84 MCH 28.4 MCHC 33.9 RDW 14.4 H Plt Count 102 L Sodium 136.3 L Potassium 4.1 Chloride 107 Carbon Dioxide 22 Anion Gap 7 BUN 26 H Creatinine 1.16 Est GFR ( Amer) 56 L Glucose 182 H Calcium 9.5 Impressions: Head CT 08/18/20 21:24 IMPRESSION: 1. No acute hemorrhage or mass lesion. 2. Diffuse global volume loss with white matter changes consistent with small vessel ischemic disease. 3. Abnormal appearance of the left globe. This is stable KUB X-Ray 08/18/20 21:24 IMPRESSION: 1. Moderate stool in the colon. No obstruction. 2. IUD device is present in the pelvis. 3. Extensive vascular calcifications. Assessment and Plan - Diagnosis (1) Hypertension Qualifiers: Hypertension type: essential hypertension Qualified Code(s): I10 - Essential (primary) hypertension Is this a current diagnosis for this admission?: Yes Plan: Improving. Euvolemic. Continue beta-blockers, calcium channel blockers. DC hydralazine. Will start on lisinopril. Adjust meds as needed. Outpatient PCP follow-up. 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 (4) Thrombocytopenia Is this a current diagnosis for this admission?: Yes Plan: Mild improvement. Chronic. Baseline platelets [id number]. On this admission platelets are trending between 138-101. Doubt if this is heparin-induced thrombocytopenia patient does not fulfill all the criterias. DC heparin. Continue argatroban. Pending platelet factor 4 antibodies. Hematology consulted, pending recommendations. Will monitor for bleeding. Platelet levels tomorrow. (5) Diabetes mellitus type 2 in obese Is this a current diagnosis for this admission?: Yes Plan: Well controlled. Hemoglobin A1c 6.5%. At times patient noted to be hypoglycemic, endorses low appetite. Continue diabetic diet. Sliding scale insulin. Basal insulin. Prandial insulin. Adjust insulin dosage as needed. Accu-Chek. Hypoglycemic protocol. Encourage frequent snacking if noted to be hypoglycemic. Continue Accu-Chek, if hypoglycemic contact physician and started on hypoglycemic protocol. Resume home meds upon discharge. Outpatient PCP follow-up. (6) AUNG (acute kidney injury) Is this a current diagnosis for this admission?: Yes Plan: Significant improvement. Creatinine at baseline. Creatinine 1.2 went down to 1.18 with IV fluids Kidney transplant recipient Cautious volume resuscitation guided by volume status. Monitor volume status and electrolytes. Replace electrolytes as needed. Avoid nephrotoxic meds. Outpatient nephrology follow-up. (7) History of coronary artery disease Is this a current diagnosis for this admission?: Yes Plan: Denies any anginal symptoms. Continue beta-blockers, antiplatelets, statins. Outpatient PCP and cardiology follow-up. (8) Hypercholesteremia Is this a current diagnosis for this admission?: Yes Plan: Continue Lipitor (9) Peripheral vascular disease Is this a current diagnosis for this admission?: Yes Plan: Continue aspirin and Lipitor (10) Urinary tract infection Qualifiers: Urinary tract infection type: site unspecified Hematuria presence: with hematuria Qualified Code(s): N39.0 - Urinary tract infection, site not specified; R31.9 - Hematuria, unspecified Is this a current diagnosis for this admission?: Yes Plan: Kidney transplant patient who came in due to urinary frequency and dysuria UA positive for leukocyte esterase moderate, urine WBC 133, urine blood small Received meropenem switched to Zosyn Received a complete course of IV antibiotics. Repeat UA negative. (11) Constipation Qualifiers: Constipation type: unspecified constipation type Qualified Code(s): K59.00 - Constipation, unspecified Is this a current diagnosis for this admission?: Yes Plan: Chronic constipation. Home medication is Amitiza. High-fiber diet, continue current bowel regimen. (12) Urinary retention Is this a current diagnosis for this admission?: Yes Plan: Patient gives history of intermittent urinary retention for the last 3 years since receiving kidney transplant. Patient is stating that she does intermittent self-catheterization at home. Bladder scan showed urinary retention. Straight cath produced 1300 cc of urine. Currently on indwelling Small catheter. Adequate urine output. Outpatient PCP and urology follow-up. - Time Time Spent with patient: 25-34 minutes Medications reviewed and adjusted accordingly: Yes Anticipated Discharge Disposition: Home with Home Health Anticipated Discharge Timeframe: within 24 hours
--- NOTE | 2020-08-25 16:39 | PDOC CONSULTATION ---
Consultation Consult Date: 08/25/20 Attending physician:: DORIS TAYLOR Provider Consulted: FREDERICK SMITH Consult reason:: Thrombocytopenia History of Present Illness Admission Date/PCP: 08/23/20 12:45 BRIA VALENCIA MD Patient complains of: Thrombocytopenia History of Present Illness: HETAL BERMAN is a 69 year old female with multiple medical issues, history of kidney transplant, presents with complicated UTI. Upon presentation she had thrombocytopenia did worsen but now seems to stabilized about 100. Not actively bleeding. Past Medical History Cardiac Medical History: Reports: Coronary Artery Disease, Hyperlipidema, Hypertension, Peripheral Vascular Disease Denies: Atrial Fibrillation, Congestive Heart Failure, Myocardial Infarction Pulmonary Medical History: Denies: Asthma, Bronchitis, Chronic Obstructive Pulmonary Disease (COPD), Pneumonia EENT Medical History: Denies: Cataracts, Ears - Hearing aids Neurological Medical History: Denies: Hemorrhagic CVA, Ischemic CVA, Seizures Endocrine Medical History: Reports: Diabetes Mellitus Type 2, Obesity Denies: Diabetes Mellitus Type 1, Hyperthyroidism, Hypothyroidism Renal/ Medical History: Reports: Chronic Kidney Disease, End Stage Renal Disease - w/ kidney transplant, Other - Status post renal transplant Denies: Nephrolithiasis Malignancy Medical History: Reports: None GI Medical History: Denies: Cirrhosis, Hepatitis, Peptic Ulcer Disease Musculoskeltal Medical History: Reports: Other - Nonambulatory status, 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 Denies: Arthritis, Fibromyalgia Skin Medical History: Reports: Other - Diabetic foot ulcers Denies: Eczema, Psoriasis Psychiatric Medical History: Denies: Alcohol Dependency, Depression, Substance Abuse, Tobacco Dependency Traumatic Medical History: Reports: None Hematology: Denies: Anemia, Bleeding Tendencies Infectious Medical History: Reports: None Past Surgical History Past Surgical History: Reports: Cholecystectomy, Orthopedic Surgery - amputation x2 Left toes, Renal Transplant Denies: Hysterectomy, Pacemaker Social History Lives with: Spouse/Significant other Smoking Status: Never Smoker Electronic Cigarette use?: No Frequency of Alcohol Use: None Hx Recreational Drug Use: No Drugs: None Hx Prescription Drug Abuse: No - Advance Directive Resuscitation Status: Full Code Family History Family History: CAD, DM, Malignancy Parental Family History Reviewed: Yes Children Family History Reviewed: Yes Sibling(s) Family History Reviewed.: Yes Medication/Allergy Home Medications: Aspirin [Ecotrin] 81 mg PO DAILY 12/28/19 Metoclopramide HCl [Reglan] 5 mg PO BIDP PRN 12/28/19 Mycophenolate Sodium [Myfortic 360 mg Tablet.dr] 360 mg PO Q12 12/28/19 Omeprazole 20 mg PO DAILYP PRN 12/28/19 Prednisone [Deltasone 5 mg Tablet] 5 mg PO QAM 12/28/19 Tacrolimus Anhydrous [Prograf 1 mg Capsule] 1 mg PO Q12 12/28/19 Temazepam [Restoril 15 mg Capsule] 30 mg PO QHS 12/28/19 Insulin Aspart [Novolog Flexpen] 0 unit SUBCUT .SLD SCALE 08/19/20 Lubiprostone [Amitiza 24 Mcg Capsule] 24 mcg PO DAILYP PRN 08/19/20 Carvedilol [Coreg 12.5 mg Tablet] 12.5 mg PO Q12 30 Days #60 tablet 08/21/20 Insulin Glargine,Hum.rec.anlog [Lantus (Pyxis) Insulin 100 Unit/1 ml 10 ml] 25 unit SUBCUT QHS 30 Days #1 unit 08/22/20 Allergies/Adverse Reactions: azithromycin [From Zithromax] Adverse Reaction (Verified 12/22/15 16:17) codeine [Codeine] Adverse Reaction (Verified 12/22/15 16:17) Review of Systems Constitutional: ABSENT: chills, fever(s), headache(s), weight gain, weight loss Eyes: ABSENT: visual disturbances Ears: ABSENT: hearing changes Cardiovascular: ABSENT: chest pain, dyspnea on exertion, edema, orthropnea, palpitations Respiratory: ABSENT: cough, hemoptysis Gastrointestinal: ABSENT: abdominal pain, constipation, diarrhea, hematemesis, hematochezia, nausea, vomiting Genitourinary: ABSENT: dysuria, hematuria Musculoskeletal: ABSENT: joint swelling Integumentary: ABSENT: rash, wounds Neurological: ABSENT: abnormal gait, abnormal speech, confusion, dizziness, focal weakness, syncope Psychiatric: ABSENT: anxiety, depression, homidical ideation, suicidal ideation Endocrine: ABSENT: cold intolerance, heat intolerance, polydipsia, polyuria Hematologic/Lymphatic: ABSENT: easy bleeding, easy bruising Physical Exam Vital Signs: Temp Pulse Resp BP Pulse Ox 98.3 F 69 17 147/57 H 100 08/25/20 12:07 08/25/20 14:00 08/25/20 12:07 08/25/20 12:07 08/25/20 12:07 Intake & Output 08/24/20 08/25/20 08/26/20 06:59 06:59 06:59 Intake Total 1615 120 Output Total 525 570 250 Balance -525 1045 -130 Weight 85.6 kg 85.7 kg General appearance: PRESENT: no acute distress, well-developed, well-nourished Head exam: PRESENT: atraumatic, normocephalic Eye exam: PRESENT: conjunctiva pink, EOMI, PERRLA. ABSENT: scleral icterus Ear exam: PRESENT: normal external ear exam Mouth exam: PRESENT: moist, tongue midline Neck exam: ABSENT: carotid bruit, JVD, lymphadenopathy, thyromegaly Respiratory exam: PRESENT: clear to auscultation maggi. ABSENT: rales, rhonchi, wheezes Cardiovascular exam: PRESENT: RRR. ABSENT: diastolic murmur, rubs, systolic murmur Pulses: PRESENT: normal dorsalis pedis pul Vascular exam: PRESENT: normal capillary refill GI/Abdominal exam: PRESENT: normal bowel sounds, soft. ABSENT: distended, guarding, mass, organolmegaly, rebound, tenderness Rectal exam: PRESENT: deferred Extremities exam: PRESENT: full ROM. ABSENT: calf tenderness, clubbing, pedal edema Neurological exam: PRESENT: alert, awake, oriented to person, oriented to place, oriented to time, oriented to situation, CN II-XII grossly intact. ABSENT: motor sensory deficit Psychiatric exam: PRESENT: appropriate affect, normal mood. ABSENT: homicidal ideation, suicidal ideation Skin exam: PRESENT: dry, intact, warm. ABSENT: cyanosis, rash Results Laboratory Results: 08/25/20 04:57 08/25/20 04:57 08/25/20 08/25/20 04:57 04:57 WBC 3.8 L RBC 4.08 Hgb 11.6 L Hct 34.1 L MCV 84 MCH 28.4 MCHC 33.9 RDW 14.4 H Plt Count 102 L Sodium 136.3 L Potassium 4.1 Chloride 107 Carbon Dioxide 22 Anion Gap 7 BUN 26 H Creatinine 1.16 Est GFR ( Amer) 56 L Glucose 182 H Calcium 9.5 Impressions: Head CT 08/18/20 21:24 IMPRESSION: 1. No acute hemorrhage or mass lesion. 2. Diffuse global volume loss with white matter changes consistent with small vessel ischemic disease. 3. Abnormal appearance of the left globe. This is stable KUB X-Ray 08/18/20 21:24 IMPRESSION: 1. Moderate stool in the colon. No obstruction. 2. IUD device is present in the pelvis. 3. Extensive vascular calcifications. Assessment & Plan - Diagnosis (1) Thrombocytopenia Is this a current diagnosis for this admission?: Yes Plan: Possibly multifactorial but may be low-grade DIC upon presentation because of the infection, less likely to be immune mediated. She was started on argatroban for the possibility of HIT but I really do not believe this is the case. Have recommended discontinuation of argatroban. She just needs repeat CBC in 2 weeks to see if the platelet count recovers. We will make those arrangements. - Time Time Spent: Greater than 70 Minutes
[2020-08-25] MEDS: INSULIN GLARGINE,HUM.REC.ANLOG 1,000 UNIT/10 ML VIAL SUBCUT SCH (22:25)
[2020-08-25] MEDS: TEMAZEPAM 15 MG CAPSULE PO SCH (22:26)
[2020-08-26 06:17] LABS: ANION GAP 7 (5-19); BLOOD UREA NITROGEN 29 mg/dL (7-20); CALCIUM 9.7 mg/dL (8.4-10.2); CARBON DIOXIDE 23 mmol/L (22-30); CHLORIDE 109 mmol/L (98-107); GLUCOSE 169 mg/dL (75-110); POTASSIUM 4.4 mmol/L (3.6-5.0)
[2020-08-26 07:11] LABS: ABSOLUTE EOSINOPHILS # (AUTO) 0.2 10^3/uL (0.0-0.6); ABSOLUTE LYMPHOCYTES (AUTO) 0.6 10^3/uL (0.5-4.7); ABSOLUTE MONOCYTES (AUTO) 0.4 10^3/uL (0.1-1.4); ABSOLUTE NEUT (AUTO) 2.3 10^3/uL (1.7-8.2); BASOPHILS % (AUTO) 0.9 % (0-2); EOSINOPHILS % (AUTO) 5.5 % (0-6); HEMATOCRIT 35.1 % (36.0-47.0); HEMOGLOBIN 11.9 g/dL (12.0-15.5); LYMPHOCYTES % (AUTO) 17.9 % (13-45); MEAN CORPUSCULAR HEMOGLOBIN 28.2 pg (27.0-33.4); MEAN CORPUSCULAR HGB CONC 33.8 g/dL (32.0-36.0); MEAN CORPUSCULAR VOLUME 83 fl (80-97); MONOCYTES % (AUTO) 10.8 % (3-13); RED BLOOD COUNT 4.21 10^6/uL (3.72-5.28); RED CELL DISTRIBUTION WIDTH 14.6 % (11.5-14.0); SEGMENTED NEUTROPHILS % (AUTO) 64.9 % (42-78); TOTAL CELLS COUNTED % (AUTO) 100 %; WHITE BLOOD COUNT 3.5 10^3/uL (4.0-10.5)
[2020-08-26 07:12] LABS: PLATELET COUNT 97 10^3/uL (150-450)
[2020-08-26] MEDS: PREDNISONE 5 MG TABLET PO SCH (07:30)
[2020-08-26] MEDS: INSULIN LISPRO 100 UNIT/ML 3 ML VIAL SUBCUT SCH ×2 (08:02→10:44)
--- NOTE | 2020-08-26 08:04 | PDOC PROGRESS REPORT ---
Subjective Progress Note for:: 08/26/20 Subjective:: Plt ct slightly lower but no acute bleeding as far as I can tell Reason For Visit: HYPERKALEMIA, PYURIA, S/P RENAL TRANSPLANT Physical Exam Vital Signs: Temp Pulse Resp BP Pulse Ox 98.7 F 69 17 138/60 H 97 08/26/20 00:06 08/26/20 07:00 08/26/20 00:06 08/26/20 00:06 08/26/20 00:06 Intake & Output 08/25/20 08/26/20 08/27/20 06:59 06:59 06:59 Intake Total 1615 1061 Output Total 570 775 Balance 1045 286 Weight 85.7 kg 85.8 kg General appearance: PRESENT: no acute distress, well-developed, well-nourished Head exam: PRESENT: atraumatic, normocephalic Eye exam: PRESENT: conjunctiva pink, EOMI, PERRLA. ABSENT: scleral icterus Ear exam: PRESENT: normal external ear exam Mouth exam: PRESENT: moist, tongue midline Neck exam: ABSENT: carotid bruit, JVD, lymphadenopathy, thyromegaly Respiratory exam: PRESENT: clear to auscultation maggi. ABSENT: rales, rhonchi, wheezes Cardiovascular exam: PRESENT: RRR. ABSENT: diastolic murmur, rubs, systolic murmur Pulses: PRESENT: normal dorsalis pedis pul Vascular exam: PRESENT: normal capillary refill GI/Abdominal exam: PRESENT: normal bowel sounds, soft. ABSENT: distended, guarding, mass, organolmegaly, rebound, tenderness Rectal exam: PRESENT: deferred Extremities exam: PRESENT: full ROM. ABSENT: calf tenderness, clubbing, pedal edema Neurological exam: PRESENT: alert, awake, oriented to person, oriented to place, oriented to time, oriented to situation, CN II-XII grossly intact. ABSENT: motor sensory deficit Psychiatric exam: PRESENT: appropriate affect, normal mood. ABSENT: homicidal ideation, suicidal ideation Skin exam: PRESENT: dry, intact, warm. ABSENT: cyanosis, rash Results Laboratory Results: 08/26/20 05:09 08/26/20 05:09 08/26/20 08/26/20 05:09 05:09 WBC 3.5 L RBC 4.21 Hgb 11.9 L Hct 35.1 L MCV 83 MCH 28.2 MCHC 33.8 RDW 14.6 H Plt Count 97 L Seg Neutrophils % 64.9 Sodium 138.6 Potassium 4.4 Chloride 109 H Carbon Dioxide 23 Anion Gap 7 BUN 29 H Creatinine 1.17 Est GFR ( Amer) 56 L Glucose 169 H Calcium 9.7 Magnesium 1.7 Impressions: Head CT 08/18/20 21:24 IMPRESSION: 1. No acute hemorrhage or mass lesion. 2. Diffuse global volume loss with white matter changes consistent with small vessel ischemic disease. 3. Abnormal appearance of the left globe. This is stable KUB X-Ray 08/18/20 21:24 IMPRESSION: 1. Moderate stool in the colon. No obstruction. 2. IUD device is present in the pelvis. 3. Extensive vascular calcifications. Assessment & Plan - Diagnosis (1) Thrombocytopenia Is this a current diagnosis for this admission?: Yes Plan: Probably low grade DIC but maybe immune related, unlikely HIT or TTP. From heme standpoint ok for d/c today if otherwise medically ready, will have f/u in our office in 2 wk for repeat plt check - Time Time Spent with patient: 35 or more minutes
[2020-08-26 08:56] LABS: APPEARANCE,URINE CLEAR; BILIRUBIN,URINE NEGATIVE (NEGATIVE); COLOR,URINE YELLOW; GLUCOSE, URINE NEGATIVE (NEGATIVE); KETONES,URINE NEGATIVE (NEGATIVE); PROTEIN,URINE NEGATIVE (NEGATIVE); UROBILINOGEN,URINE NEGATIVE mg/dL (<2.0)
[2020-08-26] MEDS: LISINOPRIL 10 MG TABLET PO SCH (10:40)
[2020-08-26] MEDS: DOCUSATE SODIUM 100 MG CAPSULE PO SCH (10:40)
[2020-08-26] MEDS: AMLODIPINE BESYLATE 10 MG TABLET PO SCH (10:40)
[2020-08-26] MEDS: TACROLIMUS ANHYDROUS 1 MG CAPSULE PO SCH (10:40)
[2020-08-26] MEDS: FAMOTIDINE 20 MG TABLET PO SCH (10:40)
[2020-08-26] MEDS: ASPIRIN 81 MG TABLET, ENT COATED PO SCH (10:41)
[2020-08-26] MEDS: CARVEDILOL 12.5 MG TABLET PO SCH (10:41)
[2020-08-26 12:39] VITALS: BP 157/68
--- NOTE | 2020-08-26 14:46 | PDOC DISCHARGE SUMMARY ---
Impression - Admit/DC Date/PCP Admission Date/Primary Care Provider: 08/23/20 12:45 BRIA VALENCIA MD Discharge Date: 08/26/20 - Discharge Diagnosis (1) Hypertension Is this a current diagnosis for this admission?: Yes (2) Kidney transplant recipient Is this a current diagnosis for this admission?: Yes (3) Hyperkalemia Is this a current diagnosis for this admission?: Yes (4) Thrombocytopenia Is this a current diagnosis for this admission?: Yes (5) Diabetes mellitus type 2 in obese Is this a current diagnosis for this admission?: Yes (6) AUNG (acute kidney injury) Is this a current diagnosis for this admission?: Yes (7) History of coronary artery disease Is this a current diagnosis for this admission?: Yes (8) Hypercholesteremia Is this a current diagnosis for this admission?: Yes (9) Peripheral vascular disease Is this a current diagnosis for this admission?: Yes (10) Urinary tract infection Is this a current diagnosis for this admission?: Yes (11) Constipation Is this a current diagnosis for this admission?: Yes (12) Urinary retention Is this a current diagnosis for this admission?: Yes - Additional Information Resuscitation Status: Full Code Discharge Diet: Diabetic Discharge Activity: Activity As Tolerated Referrals: [facility] [Outside] BRIAN MESA JR, MD [NO LOCAL MD] - 09/03/20 10:40 am FREDERICK CONNOR MD [ACTIVE STAFF] - 09/06/20 3:30 pm () BRIA VALENCIA MD [Primary Care Provider] - 08/28/20 11:15 am Prescriptions: Carvedilol [Coreg 12.5 mg Tablet] 12.5 mg PO Q12 30 Days #60 tablet Insulin Glargine,Hum.rec.anlog [Lantus (Pyxis) Insulin 100 Unit/1 ml 10 ml] 20 unit SUBCUT QHS 30 Days #1 unit Amlodipine Besylate [Norvasc 10 mg Tablet] 5 mg PO BID 30 Days #60 tablet Lisinopril [Zestril] 20 mg PO DAILY 30 Days #30 tablet Home Medications: Aspirin [Ecotrin] 81 mg PO DAILY 12/28/19 Metoclopramide HCl [Reglan] 5 mg PO BIDP PRN 12/28/19 Mycophenolate Sodium [Myfortic 360 mg Tablet.dr] 360 mg PO Q12 12/28/19 Omeprazole 20 mg PO DAILYP PRN 12/28/19 Prednisone [Deltasone 5 mg Tablet] 5 mg PO QAM 12/28/19 Tacrolimus Anhydrous [Prograf 1 mg Capsule] 1 mg PO Q12 12/28/19 Temazepam [Restoril 15 mg Capsule] 30 mg PO QHS 12/28/19 Insulin Aspart [Novolog Flexpen] 0 unit SUBCUT .SLD SCALE 08/19/20 Lubiprostone [Amitiza 24 Mcg Capsule] 24 mcg PO DAILYP PRN 08/19/20 Amlodipine Besylate [Norvasc 10 mg Tablet] 5 mg PO BID 30 Days #60 tablet 08/26/20 Carvedilol [Coreg 12.5 mg Tablet] 12.5 mg PO Q12 30 Days #60 tablet 08/26/20 Insulin Glargine,Hum.rec.anlog [Lantus (Pyxis) Insulin 100 Unit/1 ml 10 ml] 20 unit SUBCUT QHS 30 Days #1 unit 08/26/20 Lisinopril [Zestril] 20 mg PO DAILY 30 Days #30 tablet 08/26/20 History of Present Illiness History of Present Illness: As per admitting physician HETAL BERMAN is a 69 year old female who presented to the emergency room with a 2-week history of urinary frequency. She admits the gradual onset of urinary frequency 2 weeks ago which has not improved despite being treated with a full course of oral Cipro. Her frequency became severe on the evening of 08/17/2020 with the urgent need to urinate occurring every 30 minutes. Her urinary frequency (and urgency) has been accompanied by generalized malaise and weakness and has been associated with intermittent mental confusion for the last 24 hours and constipation x1 week. She denies other associated or accompanying signs and symptoms. She admits prior similar episodes with urinary tract infections. She has not identified any aggravating or ameliorating factors for her urinary frequency. In the emergency room she was found to have pyuria and an elevated serum potassium of 5.7. She is noted to be a renal transplant patient and was subsequently admitted to the hospitalist service on observation status for further evaluation and treatment. Hospital Course Hospital Course: (1) Hypertension Moderate improvement. Euvolemic. Discharged on lisinopril, continue beta-blockers and amlodipine. As per patient blood pressure runs much lower at home. Patient is stating that she has a home blood pressure cuff and he will be checking it routinely. Patient patient has been advised to hold her medication if systolic blood pressure less than 100 or patient is symptomatic. Patient has a follow-up with her technology analyst and PCP. 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 (3) Hyperkalemia Resolved. (4) Thrombocytopenia Mild improvement. Chronic. Baseline platelets [id number]. On this admission platelets are trending between 138-101. Doubt if this is heparin-induced thrombocytopenia patient does not fulfill all the criterias. Heparin was switched to argatroban. UA showed moderate hematuria. Argatroban was DC'd as per hematology's recommendation. Repeat UA showed a small hematuria. No gross hematuria. H&H stable. As per hematology's note likely due to acute illness and infection or low-grade DIC. Unlikely TTP, ITP or HIT. Refer to hematology note. Platelet factor 4 antibody pending at the time of discharge. Patient was advised to come back to ED if no bleeding. Patient has a follow-up with Dr. Connor applications chemist as outpatient. (5) Diabetes mellitus type 2 in obese Well controlled. Hemoglobin A1c 6.5%. At times patient noted to be hypoglycemic, endorses low appetite. Encourage frequent snacking if noted to be hypoglycemic. Continue diabetic diet. Sliding scale insulin. Basal insulin. Prandial insulin. Adjust insulin dosage as needed. Accu-Chek. Hypoglycemic protocol. Patient has a follow-up with her PCP for readjustment of her insulin. Patient and advised on keeping a log of her blood glucose level before seeing her PCP. (6) AUNG (acute kidney injury) Significant improvement. Creatinine at baseline. Creatinine 1.2 went down to 1.18 with IV fluids Kidney transplant recipient Was a started on cautious volume resuscitation guided by volume status. Electrolytes monitored and replaced. Avoid nephrotoxic meds. Outpatient nephrology follow-up. (7) History of coronary artery disease Denied any anginal symptoms. Continue beta-blockers, antiplatelets, statins. Outpatient PCP and cardiology follow-up. (8) Hypercholesteremia Continue Lipitor (9) Peripheral vascular disease Continue aspirin and Lipitor (10) Urinary tract infection Kidney transplant patient who came amlodipine. z Due to urinary frequency and dysuria UA positive for leukocyte esterase moderate, urine WBC 133, urine blood small Received meropenem switched to Zosyn Received a complete course of IV antibiotics. Repeat UA negative. (11) Constipation Chronic constipation. Home medication is Amitiza. High-fiber diet, continue current bowel regimen. (12) Urinary retention Patient gives history of intermittent urinary retention for the last 3 years since receiving kidney transplant. Patient is stating that she does intermittent self-catheterization at home. Bladder scan showed urinary retention. Indwelling Small catheter was placed. Adequate urine output. Outpatient PCP and urology follow-up. Physical Exam Vital Signs: Temp Pulse Resp BP Pulse Ox 97.6 F 68 16 157/68 H 97 08/26/20 13:10 08/26/20 13:10 08/26/20 13:10 08/26/20 13:10 08/26/20 13:10 Intake & Output 08/25/20 08/26/20 08/27/20 06:59 06:59 06:59 Intake Total 1615 1061 Output Total 570 775 Balance 1045 286 Weight 85.7 kg 85.8 kg General appearance: PRESENT: no acute distress, obese, well-developed, well- nourished Head exam: PRESENT: atraumatic, normocephalic Respiratory exam: PRESENT: clear to auscultation maggi. ABSENT: rales, rhonchi, wheezes Cardiovascular exam: PRESENT: RRR. ABSENT: diastolic murmur, rubs, systolic murmur GI/Abdominal exam: PRESENT: normal bowel sounds, soft. ABSENT: distended, guarding, mass, organolmegaly, rebound, tenderness Gentrourinary exam: PRESENT: indwelling catheter Neurological exam: PRESENT: alert, awake, oriented to person, oriented to place, oriented to time, oriented to situation, CN II-XII grossly intact. ABSENT: motor sensory deficit Results Laboratory Results: WBC 3.5 10^3/uL (4.0-10.5) L 08/26/20 05:09 RBC 4.21 10^6/uL (3.72-5.28) 08/26/20 05:09 Hgb 11.9 g/dL (12.0-15.5) L 08/26/20 05:09 Hct 35.1 % (36.0-47.0) L 08/26/20 05:09 MCV 83 fl (80-97) 08/26/20 05:09 MCH 28.2 pg (27.0-33.4) 08/26/20 05:09 MCHC 33.8 g/dL (32.0-36.0) 08/26/20 05:09 RDW 14.6 % (11.5-14.0) H 08/26/20 05:09 Plt Count 97 10^3/uL (150-450) L 08/26/20 05:09 Lymph % (Auto) 17.9 % (13-45) 08/26/20 05:09 Faulk % (Auto) 10.8 % (3-13) 08/26/20 05:09 Eos % (Auto) 5.5 % (0-6) 08/26/20 05:09 Baso % (Auto) 0.9 % (0-2) 08/26/20 05:09 Absolute Neuts (auto) 2.3 10^3/uL (1.7-8.2) 08/26/20 05:09 Absolute Lymphs (auto) 0.6 10^3/uL (0.5-4.7) 08/26/20 05:09 Absolute Monos (auto) 0.4 10^3/uL (0.1-1.4) 08/26/20 05:09 Absolute Eos (auto) 0.2 10^3/uL (0.0-0.6) 08/26/20 05:09 Absolute Basos (auto) 0.0 10^3/uL (0.0-0.2) 08/26/20 05:09 Seg Neutrophils % 64.9 % (42-78) 08/26/20 05:09 APTT 35.4 SEC (23.5-35.8) 08/26/20 07:01 Sodium 138.6 mmol/L (137-145) 08/26/20 05:09 Potassium 4.4 mmol/L (3.6-5.0) 08/26/20 05:09 Chloride 109 mmol/L (98-107) H 08/26/20 05:09 Carbon Dioxide 23 mmol/L (22-30) 08/26/20 05:09 Anion Gap 7 (5-19) 08/26/20 05:09 BUN 29 mg/dL (7-20) H 08/26/20 05:09 Creatinine 1.17 mg/dL (0.52-1.25) 08/26/20 05:09 Est GFR ( Amer) 56 (>60) L 08/26/20 05:09 Est GFR (MDRD) Non-Af 46 (>60) L 08/26/20 05:09 Glucose 169 mg/dL (75-110) H 08/26/20 05:09 POC Glucose 141 mg/dL (70-110) H 08/26/20 10:41 Hemoglobin A1c % 6.5 % (4.7-6.0) H 08/20/20 04:47 Calcium 9.7 mg/dL (8.4-10.2) 08/26/20 05:09 Magnesium 1.7 mg/dL (1.6-2.3) 08/26/20 05:09 Total Bilirubin 1.3 mg/dL (0.2-1.3) 08/22/20 17:28 Direct Bilirubin 0.3 mg/dL (0.0-0.4) 08/22/20 17:28 Neonat Total Bilirubin Not Reportable 08/22/20 17:28 Neonat Direct Bilirubin Not Reportable 08/22/20 17:28 Neonat Indirect Bili Not Reportable 08/22/20 17:28 AST 24 U/L (14-36) 08/22/20 17:28 ALT 19 U/L (<35) 08/22/20 17:28 Alkaline Phosphatase 74 U/L (38-126) 08/22/20 17:28 Ammonia < 8.7 umol/L (9-33) L 08/22/20 17:28 Total Protein 6.8 g/dL (6.3-8.2) 08/22/20 17:28 Albumin 3.6 g/dL (3.5-5.0) 08/22/20 17:28 Lipase 234.0 U/L (23-300) 08/18/20 20:40 Vitamin B12 616.0 pg/mL (239-931) 08/21/20 04:28 Vitamin D 25-Hydroxy 18.2 ng/mL (14.7-68.3) 08/21/20 04:28 Folate 5.26 ng/mL (>2.76) 08/21/20 04:28 TSH 2.13 uIU/mL (0.47-4.68) 08/21/20 04:28 Free T4 1.31 ng/dL (0.78-2.19) 08/21/20 04:28 Urine Color YELLOW 08/26/20 08:30 Urine Appearance CLEAR 08/26/20 08:30 Urine pH 6.0 (5.0-9.0) 08/26/20 08:30 Ur Specific [place] 1.010 08/26/20 08:30 Urine Protein NEGATIVE mg/dL (NEGATIVE) 08/26/20 08:30 Urine Glucose (UA) NEGATIVE mg/dL (NEGATIVE) 08/26/20 08:30 Urine Ketones NEGATIVE mg/dL (NEGATIVE) 08/26/20 08:30 Urine Blood SMALL (NEGATIVE) H 08/26/20 08:30 Urine Nitrite NEGATIVE (NEGATIVE) 08/18/20 22:05 Urine Nitrite (Reflex) NEGATIVE (NEGATIVE) 08/26/20 08:30 Urine Bilirubin NEGATIVE (NEGATIVE) 08/26/20 08:30 Urine Urobilinogen NEGATIVE mg/dL (<2.0) 08/26/20 08:30 Ur Leukocyte Esterase MODERATE (NEGATIVE) H 08/18/20 22:05 Leukocyte Esterase Rfl NEGATIVE (NEGATIVE) 08/26/20 08:30 Urine WBC (Auto) 133 /HPF 08/18/20 22:05 Urine RBC (Auto) 5 /HPF 08/26/20 08:30 Urine WBC (Reflex) 1 /HPF 08/26/20 08:30 Squamous Epi Cells Auto 3 /HPF 08/18/20 22:05 Urine Mucus (Auto) RARE /LPF 08/22/20 16:31 Urine Ascorbic Acid NEGATIVE (NEGATIVE) 08/26/20 08:30 Impressions: Head CT 08/18/20 21:24 IMPRESSION: 1. No acute hemorrhage or mass lesion. 2. Diffuse global volume loss with white matter changes consistent with small vessel ischemic disease. 3. Abnormal appearance of the left globe. This is stable KUB X-Ray 08/18/20 21:24 IMPRESSION: 1. Moderate stool in the colon. No obstruction. 2. IUD device is present in the pelvis. 3. Extensive vascular calcifications. Plan Time Spent: Greater than 30 Minutes Stroke Is this a Stroke Patient?: No Acute Heart Failure Is this a Heart Failure Patient?: No
== END 2020-08-26 14:40 | disposition home health service (06) | DRG 690 ==
LOC: ER 19:38 → EH 08-19 00:47 → 4N 08-19 01:43 → OBSVTOIN 08-23 12:45
PROVIDERS: ADMIT Emergency Medicine; ATTEND Internal Medicine
DX: N39.0 Urinary tract infection, site not specified (principal); N17.9 Acute kidney failure, unspecified; Z94.0 Kidney transplant status; E87.5 Hyperkalemia; I25.10 Atherosclerotic heart disease of native coronary artery without angina pectoris; I10 Essential (primary) hypertension; K59.00 Constipation, unspecified; R33.8 Other retention of urine; E78.5 Hyperlipidemia, unspecified; E11.51 Type 2 diabetes mellitus with diabetic peripheral angiopathy without gangrene; R31.9 Hematuria, unspecified; E11.21 Type 2 diabetes mellitus with diabetic nephropathy; Z79.4 Long term (current) use of insulin; D69.6 Thrombocytopenia, unspecified; Z89.422 Acquired absence of other left toe(s); Z79.899 Other long term (current) drug therapy; Z90.49 Acquired absence of other specified parts of digestive tract; Z23 Encounter for immunization
CPT/HCPCS: 36415; 70450; 74018; 80048; 80053; 81001; 82140; 82306; 82607; 82746; 82962; 83036; 83520; 83690; 83735; 84439; 84443; 85025; 85027; 85730; 87040; 87086; 90471; 90686; 96361; 96365; 96375; 99285; G0008; G0378; J0360; J0883; J1644; J1815; J2185; J2405; J2543; J3490; J7030; J7050; J7507; J7512

== ENCOUNTER 2020-09-03 15:29 | Emergency (ER) | payer MEDICARE, BC ==
--- NOTE | 2020-09-03 15:53 | ER Document Report ---
HPI - HPI Patient complains to provider of: replace fountain Time Seen by Provider: 09/03/20 15:41 Onset: Just prior to arrival Onset/Duration: Sudden Quality of pain: No pain Severity: None Pain Level: Denies Context: 69-year-old female presents to ED for Fountain accidentally coming out. She states she had a kidney transplant in 2011 for kidney failure due to diabetes. She states she went to the kidney transplant doctor for her follow-up today and everything was good and he told her to follow-up with a urologist before removing the Fountain. She states she supposed to follow-up with her urologist in a couple days. She states when she got out of the car the Fountain was accidentally pulled out. The balloon is deflated on the Fountain. Associated Symptoms: Other - Fountain catheter out Exacerbated by: Denies Relieved by: Denies Similar symptoms previously: Yes Recently seen / treated by doctor: Yes - CONSTITUTIONAL Constitutional: DENIES: Fever, Chills - EENT EENT: DENIES: Sore Throat, Ear Pain, Nasal Drainage-Clear, Nasal Drainage- Purulent, Congestion, Eye problems - NEURO Neurology: DENIES: Headache, Weakness, Vision blurred, Dizzinesss / Vertigo - CARDIOVASCULAR Cardiovascular: DENIES: Chest pain - RESPIRATORY Respiratory: DENIES: Trouble Breathing, Coughing - GASTROINTESTINAL Gastrointestinal: DENIES: Abdominal Pain, Nausea, Patient vomiting, Diarrhea, Constipation, Black / Bloody Stools - URINARY Notes: Fountain catheter accidentally fell out while getting out of the car after her doctor visit. Needs Fountain replaced - REPRODUCTIVE Reproductive: DENIES: : - MUSCULOSKELETAL Musculoskeletal: DENIES: Extremity pain, Back Pain, Neck Pain, Swelling - DERM Skin Color: Normal Skin Problems: None Past Medical History - Social History Smoking Status: Never Smoker Frequency of alcohol use: None Drug Abuse: None Lives with: Family Family History: CAD, DM, Malignancy - Past Medical History Cardiac Medical History: Reports: Hx Coronary Artery Disease, Hx Hypercholesterolemia, Hx Hypertension, Hx Peripheral Vascular Disease Pulmonary Medical History: Reports: None EENT Medical History: Reports: 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 Neurological Medical History: Reports: None Endocrine Medical History: Reports: Hx Diabetes Mellitus Type 2 Renal/ Medical History: Reports: Hx End Stage Renal Disease - w/ kidney transplant Malignancy Medical History: Reports: None GI Medical History: Reports: None Musculoskeletal Medical History: Reports Hx Musculoskeletal Deformity Skin Medical History: Reports Hx Cellulitis, Denies Hx Eczema, Denies Hx Psoriasis Psychiatric Medical History: Reports: None Traumatic Medical History: Reports: None Infectious Medical History: Reports: None Past Surgical History: Reports: Hx Cholecystectomy, Hx Kidney (Renal Surgery) - transplant, 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 IN LAST 30 DAYS: No - HEENT HEENT: Atraumatic, Normal ENT Exam, Normocephalic. 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 - RESPIRATORY Respiratory: Breath Sounds Normal - CARDIOVASCULAR Cardiovascular: Regular Rate, Regular Rhythm - GI/ABDOMEN Gastrointestinal: Abdomen Soft, Abdomen Non-Tender, No Organomegaly, Normal Bowel Sounds Notes: Needs Fountain replaced, multiple surgical scars - MUSCULOSKELETAL/EXTREMETIES Notes: Patient chair bound - NEURO Level of Consciousness: Awake, Alert, Appropriate Motor/Sensory: No Motor Deficit, No Sensory Deficit - DERM Integumentary: Warm, Dry, No Rash Course - Vital Signs Vital signs: Temp Pulse Resp BP Pulse Ox 98.7 F 74 17 173/74 H 96 09/03/20 15:37 09/03/20 15:37 09/03/20 15:37 09/03/20 15:37 09/03/20 15:37 Discharge - Discharge Clinical Impression: Encounter for Fountain catheter replacement Condition: Stable Disposition: HOME, SELF-CARE Additional Instructions: Your Fountain catheter was accidentally dislodged when you got out of the car according to what you are telling me. You state that the kidney transplant specialist told you that he wanted you to keep the Fountain until you follow-up with the urologist. He stated you do not want a Fountain left at this time. Fountain catheter was replaced Fountain Catheter Care Tube Position: Keep the catheter connected to the drainage tubing at all times. Avoid pulling on the catheter. Keep the drainage tube taped to the mid- thigh, on top of your leg (not underneath it). Be sure there are no kinks or loops in the tube. Keep the drainage bag below the bladder. When in bed, the drainage bag should hang below the abdomen but should not lie on the floor. The drainage bag has hooks at the top so it can be hung on a chair or bed. Daily Cleaning: Wash your hands with soap and water before and after caring for your catheter. Twice a day, clean yourself where the catheter goes into the urethra. Use a warm, soapy wash cloth to clean around the urethral opening and the first few inches of the catheter. Females should wash from front to back to decrease the risk of infection from fecal material. After washing with soap, rinse the area with water. Do not put powder around the catheter. Apply ointment only if instructed by your doctor or nurse. Follow up if you develop fever or chills, flank or abdominal pain, blood in the urine, or if urine is not draining into the catheter. FOLLOW-UP CARE: If you have been referred to a physician for follow-up care, call the physicians office for an appointment as you were instructed or within the next two days. If you experience worsening or a significant change in your symptoms, notify the physician immediately or return to the Emergency Department at any time for re-evaluation. Forms: Elevated Blood Pressure Referrals: BRIA VALENCIA MD [Primary Care Provider] - Follow up as needed
[2020-09-03 16:36] VITALS: BP 168/67
== END 2020-09-03 16:34 | disposition home or self-care (01) ==
LOC: ER 15:29
DX: Z46.6 Encounter for fitting and adjustment of urinary device (principal)
CPT/HCPCS: 99283

== ENCOUNTER 2020-09-23 12:40 | Observation (INO) | payer MEDICARE, BC ==
--- NOTE | 2020-09-23 12:52 | ER Document Report ---
ED General - General TRAVEL OUTSIDE OF THE [place] IN LAST 30 DAYS: No <RASHAUN TERAN - Last Filed: 09/23/20 19:28> <DAISY PURCELL - Last Filed: 09/23/20 21:05> - General Stated Complaint: POSSIBLE STROKE Time Seen by Provider: 09/23/20 12:48 Primary Care Provider: BRIA VALENCIA MD [Primary Care Provider] - Follow up as needed - [facility] Notes: 69-year-old female with past medical history for blindness, urinary retention, frequent UTI, renal transplant, hypertension, diabetes to the emergency department with complaints of acute onset slurred speech and right facial droop that began about 1148 this morning. reports that the patient's aide to ld her that she started to develop slurred speech. He went into the home and indeed he states that it seemed like her tongue was thick and she was having difficulty talking. He also noticed that she had a right facial droop. She never had a stroke before. She is only on a baby aspirin daily but no other blood thinners. She denies any headache. She denies any numbness or tingling. Denies any chest pain or shortness of breath. She is followed by Dr. Espinoza in [place] for her renal transplant. Her primary care is Dr. Valencia. (RASHAUN TERAN) - Related Data Allergies/Adverse Reactions: azithromycin [From Zithromax] Adverse Reaction (Verified 12/22/15 16:17) codeine [Codeine] Adverse Reaction (Verified 12/22/15 16:17) Past Medical History - General Information source: Patient, Relative - Social History Smoking Status: Former Smoker Frequency of alcohol use: None Drug Abuse: None Lives with: Spouse/Significant other Family History: CAD, DM, Malignancy - Past Medical History Cardiac Medical History: Reports: Hx Coronary Artery Disease, Hx Hypercholester olemia, Hx Hypertension, Hx Peripheral Vascular Disease Denies: Hx Atrial Fibrillation, Hx Congestive Heart Failure, Hx Heart Attack Pulmonary Medical History: Denies: Hx Asthma, Hx Bronchitis, Hx COPD, Hx Pneumonia Neurological Medical History: Denies: Hx Cerebrovascular Accident, Hx Seizures Endocrine Medical History: Reports: Hx Diabetes Mellitus Type 2. Denies: Hx Diabetes Mellitus Type 1, Hx Hyperthyroidism, Hx Hypothyroidism Renal/ Medical History: Reports: Hx End Stage Renal Disease - w/ kidney transplant GI Medical History: Denies: Hx Cirrhosis, Hx Hepatitis Musculoskeletal Medical History: Denies Hx Arthritis, Denies Hx Fibromyalgia, Reports Hx Musculoskeletal Deformity Skin Medical History: Reports Hx Cellulitis, Denies Hx Eczema, Denies Hx Psoriasis Psychiatric Medical History: Denies: Hx Depression Infectious Medical History: Denies: Hx Hepatitis Past Surgical History: Reports: Hx Cholecystectomy, Hx Kidney (Renal Surgery) - transplant, 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 Denies: Hx Hysterectomy, Hx Pacemaker - Immunizations Hx Diphtheria, Pertussis, Tetanus Vaccination: Yes Hx Pneumococcal Vaccination: 11/01/09 <RASHAUN TERAN - Last Filed: 09/23/20 19:28> Review of Systems - Review of Systems Constitutional: denies: Chills, Fever EENT: No symptoms reported Cardiovascular: denies: Chest pain, Palpitations, Heart racing, Orthopnea, Dyspnea, Syncope, Dizziness, Lightheaded Respiratory: denies: Cough, Short of breath Gastrointestinal: denies: Abdominal pain, Diarrhea, Nausea, Vomiting Genitourinary: Other - currently has a fountain Musculoskeletal: No symptoms reported Skin: No symptoms reported Hematologic/Lymphatic: No symptoms reported Neurological/Psychological: Speech impairment, Other - right facial droop -: Yes All other systems reviewed and negative <RASHAUN TERAN - Last Filed: 09/23/20 19:28> Physical Exam - Vital signs Interpretation: Normal - General General appearance: Alert - HEENT Head: Normocephalic, Atraumatic Eyes: Normal Pupils: PERRL Neck: Normal, Supple - Respiratory Respiratory status: No respiratory distress Chest status: Nontender Breath sounds: Normal. No: Rales, Rhonchi, Wheezing Chest palpation: Normal - Cardiovascular Rhythm: Regular Heart sounds: Normal auscultation Murmur: No - Abdominal Inspection: Normal Distension: No distension Bowel sounds: Normal Tenderness: Nontender. No: Tender, McBurney's point, Kelley's sign, Guarding, Rebound Organomegaly: No organomegaly - Neurological Neuro grossly intact: Yes Cognition: Normal Orientation: AAOx4 [place] Coma Scale Eye Opening: Spontaneous Alisha Coma Scale Verbal: Oriented [place] Coma Scale Motor: Obeys Commands [place] Coma Scale Total: 15 Speech: Normal - No speech difficulty noted. who is bedside states that the slurred speech has resolved Cranial nerves: Other - There is mild slack in the right face. However there is no full on drooping of the eye or the mouth on the right side. Cerebellar coordination: Other - Patient has not ambulated since March. She has normal [id number] bilaterally. Normal [id number] bilaterally. 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 No: Pronator drift Sensory: Normal - Psychological Associated symptoms: Normal affect, Normal mood - Skin Skin Temperature: Warm Skin Moisture: Dry Skin Color: Normal <RASHAUN TERAN - Last Filed: 09/23/20 19:28> - Vital signs Vitals: Temp 97.8 F 09/23/20 12:40 Temp Pulse Resp BP Pulse Ox 97.8 F 69 15 168/88 H 99 09/23/20 12:40 09/23/20 13:18 09/23/20 13:18 09/23/20 13:18 09/23/20 13:18 Intake & Output 09/22/20 09/23/20 09/24/20 06:59 06:59 06:59 Weight 193.3 kg Weight/Height Weight 193.3 kg Height 5 ft 4 in (RASHAUN TERAN) - General Notes: chronicly ill appearing. old fistula to the left arm, fountain cath in place (RASHAUN TERAN) - Cardiovascular Notes: no pitting edema (RASHAUN TERAN) Course - Laboratory Result Diagrams: 09/23/20 14:10 09/23/20 14:10 - Diagnostic Test Radiology reviewed: Image reviewed, Reports reviewed <RASHAUN TERAN - Last Filed: 09/23/20 19:28> - Laboratory Result Diagrams: 09/23/20 19:20 09/23/20 14:10 - Consults Dr. Padilla Time consulted: 21:03 Consulted provider: will come to ER <DAISY PURCELL - Last Filed: 09/23/20 21:05> - Re-evaluation Re-evalutation: 09/23/20 12:51 last normal 11:48 AM, mild right facial droop, no pronator drift. NIH of 1; excluded from TPA use. Discussed with Dr. Anguiano. He agrees with the plan. 09/23/20 16:05 Discussed patient further with my ER attending, Dr. Anguiano. We agree that the patient needs to be admitted but the platelet count is concerning. Plan to call heme-onc about this. Spoke with Dr. Cali, heme-onc. We discussed the platelet levels and have not changed since August. She states that we need more information on the smear of the blood. She request for repeat CBC and for her smear to look for schistocytes. She states that if there are a lot of schistocytes and the patient will need to be transferred for further evaluation for TTP. She states that if there is low schistocytes and there is no evidence for bleeding and the patient can be evaluated here in the. She is aware that the patient initially came in for neurological symptoms and that I am concerned for possible TIA. Possible that this is medication induced in particular from her tacrolimus. 09/23/20 19:00 With significant difficulties with repeat blood draw. Several nurses and lab staff have attempted to get blood. I also attempted to get blood with a peripheral IV using ultrasound. Was not able to obtain in the arm. Dr. Alexander was able to get a blood draw from her right foot with success. We will see what her smear shows on the repeat CBC. Once that is completed we will call Dr. Cali. 09/23/20 19:[address] Cali again. Advised her of the repeat values that were seeing and that we would need to do another blood draw. She states to call her back if the platelets are low like that initial lab. 09/23/20 19:28 Turned patient over to AMAN Purcell. She will await CBC and if consistently better in comparison to the last one, will call the hospitalist for admission for TIA. Advised patient and of shift turn over; they agree with the plan. (RASHAUN TERAN) 09/23/20 21:04 Saw and evaluated the patient with at bedside. Aware of need for admission. Aware that I have spoken with the hospitalist Dr. Padilla who is agreeable to accept admission. Family and patient are agreeable to admission. (DAISY PURCELL) - Vital Signs Vital signs: Temp Pulse Resp BP Pulse Ox 98.1 F 74 19 181/74 H 97 09/23/20 19:46 09/23/20 19:46 09/23/20 19:46 09/23/20 19:46 09/23/20 19:46 - Laboratory Laboratory results interpreted by me: 09/23/20 09/23/20 09/23/20 13:11 14:10 14:10 WBC 3.6 L Hgb Hct RDW 14.9 H Plt Count 11 L* Monocytes % (Manual) 2 L APTT Chloride 108 H Carbon Dioxide 21 L BUN 35 H Est GFR (MDRD) Non-Af 49 L Glucose 115 H POC Glucose 111 H Urine Protein Urine Blood Leukocyte Esterase Rfl 09/23/20 09/23/20 09/23/20 14:10 14:13 19:20 WBC Hgb 11.6 L Hct 34.7 L RDW 14.8 H Plt Count 127 L D Monocytes % (Manual) APTT 22.4 L Chloride Carbon Dioxide BUN Est GFR (MDRD) Non-Af Glucose POC Glucose Urine Protein 100 H Urine Blood SMALL H Leukocyte Esterase Rfl TRACE H - EKG Interpretation by Me Additional EKG results interpreted by me: 09/23/20 Rate: 68 Rhythm: Sinus rhythm Interpretation: No STEMI, left axis deviation that is not new. No significant changes in comparison to her last EKG on March 23, 2020 (RASHAUN TERAN) - Consults Dr. Padilla Reason for consultation: 09/23/20 21:03 Admission for TIA evaluation. Reviewed all lab and diagnostic studies with the doctor on way MRI has been completed results are pending. Agrees with eval uation, agrees with plan, accepts admission (DAISY PURCELL) Discharge <RASHAUN TERAN - Last Filed: 09/23/20 19:28> - Discharge Admitting Provider: Randy (Hospitalist) Unit Admitted: [facility] <DAISY PURCELL - Last Filed: 09/23/20 21:05> - Discharge Clinical Impression: TIA (transient ischemic attack) Condition: Stable Disposition: ADMITTED OBSERVATION Referrals: BRIA VALENCIA MD [Primary Care Provider] - Follow up as needed
--- NOTE | 2020-09-23 13:18 | RADIOLOGY REPORT (SQ) ---
EXAM DESCRIPTION: CT HEAD WITHOUT IMAGES COMPLETED DATE/TIME: 09/23/2020 1:02 pm REASON FOR STUDY: facial droop COMPARISON: 08/18/2020, 03/23/2020, 04/25/2015 TECHNIQUE: Axial images acquired through the brain without intravenous contrast. Images reviewed wi th bone, brain and subdural windows. Additional sagittal and coronal reconstructions were generated. Images stored on PACS. All CT scanners at this facility use dose modulation, iterative reconstruction, and/or weight based d osing when appropriate to reduce radiation dose to as low as reasonably achievable (ALARA). [facility]: Dose Right [facility]: CareDose [facility]: Dose Right [facility]: Teradose 4D [facility]: Smart Tiendeo RADIATION DOSE: CT Rad equipment meets quality standard of care and radiation dose reduction techniq ues were employed. CTDIvol: 53.2 mGy. DLP: 1044 mGy-cm. mGy. LIMITATIONS: None. FINDINGS: VENTRICLES: Prominent. CEREBRUM: No masses. No hemorrhage. No midline shift. Re- demonstration I will multifocal decrease d attenuation within the periventricular white matter, most significantly affecting the left frontal lobe. No evidence for acute infarction. CEREBELLUM: No masses. No hemorrhage. No alteration of density. No evidence for acute infarction. EXTRAAXIAL SPACES: No fluid collections. No masses. ORBITS AND GLOBE: Re- demonstration of left phthisis bulbi and right IOL. No intraconal extraconal m asses. CALVARIUM: No fracture. PARANASAL SINUSES: No fluid or mucosal thickening. SOFT TISSUES: No mass or hematoma. OTHER: No other significant finding. IMPRESSION: Stable CT appearance of the brain. No acute intracranial abnormality. EVIDENCE OF ACUTE STROKE: NO. TECHNICAL DOCUMENTATION: JOB ID: [id number] Quality ID # [id number]: Final reports with documentation of one or more dose reduction techniques (e.g., Au tomated exposure control, adjustment of the mA and/or kV according to patient size, use of iterative reconstruction technique) 2010 [employer]- All Rights Reserved Reading location - IP/workstation name: [email or web address]
[2020-09-23 14:42] LABS: INTERNATIONAL RATION (INR) 1.01; PROTHROMBIN TIME 13.5 SEC (11.4-15.4)
[2020-09-23 14:45] LABS: APPEARANCE,URINE CLEAR; BILIRUBIN,URINE NEGATIVE (NEGATIVE); COLOR,URINE YELLOW; GLUCOSE, URINE NEGATIVE (NEGATIVE); KETONES,URINE NEGATIVE (NEGATIVE); PROTEIN,URINE 100 mg/dL (NEGATIVE); URINE SPECIFIC GRAVITY 1.018; UROBILINOGEN,URINE NEGATIVE mg/dL (<2.0)
[2020-09-23 14:46] LABS: PARTIAL THROMBOPLASTIN TIME 22.4 SEC (23.5-35.8)
--- NOTE | 2020-09-23 14:59 | RADIOLOGY REPORT (SQ) ---
EXAM DESCRIPTION: CHEST SINGLE VIEW IMAGES COMPLETED DATE/TIME: 09/23/2020 2:51 pm REASON FOR STUDY: facial droop COMPARISON: 10/20/2018 EXAM PARAMETERS: NUMBER OF VIEWS: One view. TECHNIQUE: Single frontal radiographic view of the chest acquired. RADIATION DOSE: NA LIMITATIONS: None. FINDINGS: LUNGS AND PLEURA: Minimal linear atelectasis in the left base. Lung yanes are otherwise clear. No effusion or pneumothorax. MEDIASTINUM AND HILAR STRUCTURES: No masses. Contour normal. HEART AND VASCULAR STRUCTURES: Heart size is stable. No failure. BONES: No acute findings. HARDWARE: None in the chest. OTHER: No other significant finding. IMPRESSION: NO ACUTE RADIOGRAPHIC FINDING IN THE CHEST. TECHNICAL DOCUMENTATION: JOB ID: [id number] 2010 [employer]- All Rights Reserved Reading location - IP/workstation name: [email or web address]
[2020-09-23 15:04] LABS: ALBUMIN 4.1 g/dL (3.5-5.0); ALKALINE PHOSPHATASE 104 U/L (38-126); ANION GAP 12 (5-19); ASPARTATE AMINO TRANSFERASE 20 U/L (14-36); BILIRUBIN,DIRECT 0.1 mg/dL (0.0-0.4); BILIRUBIN,TOTAL 0.8 mg/dL (0.2-1.3); BLOOD UREA NITROGEN 35 mg/dL (7-20); CALCIUM 9.9 mg/dL (8.4-10.2); CARBON DIOXIDE 21 mmol/L (22-30); CHLORIDE 108 mmol/L (98-107); GLUCOSE 115 mg/dL (75-110); POTASSIUM 4.7 mmol/L (3.6-5.0); TOTAL PROTEIN 7.3 g/dL (6.3-8.2)
[2020-09-23] MEDS ORDERED: LORAZEPAM INJ 2 MG/1 ML VIAL IM ONE ×2 (16:47→20:15)
--- NOTE | 2020-09-23 17:35 | EKG REPORT ---
SEVERITY:- ABNORMAL ECG - SINUS RHYTHM LEFT AXIS DEVIATION PROBABLE LEFT VENTRICULAR HYPERTROPHY : Confirmed by: Edmond Blanchard MD 23-Sep-2020 17:34:39
[2020-09-23 19:29] LABS: ABSOLUTE EOSINOPHILS # (AUTO) 0.1 10^3/uL (0.0-0.6); ABSOLUTE LYMPHOCYTES (AUTO) 0.9 10^3/uL (0.5-4.7); ABSOLUTE MONOCYTES (AUTO) 0.5 10^3/uL (0.1-1.4); ABSOLUTE NEUT (AUTO) 3.4 10^3/uL (1.7-8.2); BASOPHILS % (AUTO) 0.9 % (0-2); EOSINOPHILS % (AUTO) 2.5 % (0-6); HEMATOCRIT 34.7 % (36.0-47.0); HEMOGLOBIN 11.6 g/dL (12.0-15.5); LYMPHOCYTES % (AUTO) 17.6 % (13-45); MEAN CORPUSCULAR HEMOGLOBIN 27.9 pg (27.0-33.4); MEAN CORPUSCULAR HGB CONC 33.5 g/dL (32.0-36.0); MEAN CORPUSCULAR VOLUME 83 fl (80-97); MONOCYTES % (AUTO) 9.7 % (3-13); RED BLOOD COUNT 4.16 10^6/uL (3.72-5.28); RED CELL DISTRIBUTION WIDTH 14.8 % (11.5-14.0); SEGMENTED NEUTROPHILS % (AUTO) 69.3 % (42-78); TOTAL CELLS COUNTED % (AUTO) 100 %; WHITE BLOOD COUNT 4.9 10^3/uL (4.0-10.5)
[2020-09-23 19:46] LABS: PLATELET COUNT 127 10^3/uL (150-450)
[2020-09-23 19:53] LABS: ANISOCYTOSIS SLIGHT; OVALOCYTES SLIGHT; POIKILOCYTOSIS SLIGHT; SCHISTOCYTES SLIGHT
[2020-09-23 19:54] LABS: PLATELET COMMENT DECREASED
--- NOTE | 2020-09-23 21:25 | RADIOLOGY REPORT (SQ) ---
EXAM DESCRIPTION: MR BRAIN WITHOUT IV CONTRAST COMPLETED DATE/TME: 09/23/2020 20:50 CLINICAL HISTORY: 69 years, Female, slurred speech, facial droop COMPARISON: Head CT from earlier today TECHNIQUE: Noncontrast multiplanar multiecho MR imaging of the brain was performed. Images stored on PACS. LIMITATIONS: None. FINDINGS: There is no diffusion restriction. There is no major vascular territorial infarct. Moderately severe chronic small vessel ischemic changes and additional lacunar infarcts are noted within the periventricular and subcortical white matter, deep jama matter structures, arthur, and middle cerebellar peduncles. There are several punctate foci of susceptibility artifact within the bilateral cerebral hemispheres, arthur, and medial right brachium pontis on gradient echo, consistent with foci of old hemorrhage, such as can be seen with amyloid angiopathy or hypertension. There is no evidence of mass or abnormal mass effect. There is no hydrocephalus. The major vascular flow voids in the skull base appear maintained, implying patency. No calvarial lesion is seen. Shrunken and irregular left ocular globe is again noted as before. Paranasal sinuses are clear. IMPRESSION: Chronic ischemic changes and evidence of multiple old hemorrhages as above. No acute intracranial abnormality is seen. copyright 2010 [employer]- All Rights Reserved
--- NOTE | 2020-09-23 21:33 | PDOC H&P ---
History of Present Illness Admission Date/PCP: 09/23/20 21:15 BRIA VALENCIA MD Patient complains of: Slurred speech and facial droop History of Present Illness: HETAL BERMAN is a 69 year old female with history of diabetes, hypertension, renal transplant, blindness, urinary retention with indwelling Small, who presents to the hospital for evaluation of slurred speech and facial droop. Patient has a home health aide who picked up today that patient had the symptoms around noon. Patient informs me that she did not notice the symptoms herself but her also noted the symptoms. told her that they resolved after about 15 minutes. Subsequently came in for evaluation. Patient denies any notable weaknesses. She states she has been having difficulty walking since her last UTI. She has physical therapy at home and walks around with assistance. She denies any new neurological symptoms. She denies prior history of strokes or TIAs. Past Medical History Cardiac Medical History: Reports: Coronary Artery Disease, Hyperlipidema, Hypertension, Peripheral Vascular Disease Denies: Atrial Fibrillation, Congestive Heart Failure, Myocardial Infarction Pulmonary Medical History: Denies: Asthma, Bronchitis, Chronic Obstructive Pulmonary Disease (COPD), Pneumonia Neurological Medical History: Denies: Seizures Endocrine Medical History: Reports: Diabetes Mellitus Type 2 Denies: Diabetes Mellitus Type 1, Hyperthyroidism, Hypothyroidism Renal/ Medical History: Reports: End Stage Renal Disease - w/ kidney transplant GI Medical History: Denies: Cirrhosis, Hepatitis Musculoskeltal Medical History: Denies: Arthritis, Fibromyalgia Skin Medical History: Denies: Eczema, Psoriasis Psychiatric Medical History: Denies: Depression Hematology: Denies: Anemia, Bleeding Tendencies Past Surgical History Past Surgical History: Reports: Cholecystectomy, Orthopedic Surgery - amputation x2 Left toes, Other - Multiple eye surgeries Denies: Hysterectomy, Pacemaker Social History Information Source: Patient Lives with: Spouse/Significant other Smoking Status: Former Smoker Electronic Cigarette use?: No Frequency of Alcohol Use: None Hx Recreational Drug Use: No Drugs: None Hx Prescription Drug Abuse: No - Advance Directive Resuscitation Status: Full Code Family History Family History: CAD, DM, Malignancy Parental Family History Reviewed: Yes Children Family History Reviewed: Yes Sibling(s) Family History Reviewed.: Yes Medication/Allergy Home Medications: Aspirin [Ecotrin] 81 mg PO DAILY 12/28/19 Metoclopramide HCl [Reglan] 5 mg PO BIDP PRN 12/28/19 Mycophenolate Sodium [Myfortic 360 mg Tablet.dr] 360 mg PO Q12 12/28/19 Omeprazole 20 mg PO DAILYP PRN 12/28/19 Prednisone [Deltasone 5 mg Tablet] 5 mg PO QAM 12/28/19 Tacrolimus Anhydrous [Prograf 1 mg Capsule] 1 mg PO Q12 12/28/19 Temazepam [Restoril 15 mg Capsule] 15 mg PO QHS 12/28/19 Insulin Aspart [Novolog Flexpen] 0 unit SUBCUT .SLD SCALE 08/19/20 Lubiprostone [Amitiza 24 Mcg Capsule] 24 mcg PO DAILYP PRN 08/19/20 Carvedilol [Coreg 6.25 mg Tablet] 6.25 mg PO Q12 09/23/20 Insulin Glargine,Hum.rec.anlog [Lantus (Pyxis) Insulin 100 Unit/1 ml 10 ml] 30 unit SUBCUT QHS 09/23/20 Allergies/Adverse Reactions: azithromycin [From Zithromax] Adverse Reaction (Verified 12/22/15 16:17) codeine [Codeine] Adverse Reaction (Verified 12/22/15 16:17) Review of Systems Constitutional: ABSENT: fever(s) Eyes: PRESENT: other - Completely blind in the left eye and 25% vision in the right eye Ears: ABSENT: hearing changes Nose, Mouth, and Throat: ABSENT: headache(s) Cardiovascular: PRESENT: edema. ABSENT: chest pain Respiratory: ABSENT: cough, dyspnea Gastrointestinal: ABSENT: abdominal pain, nausea, vomiting Genitourinary: PRESENT: other - Chronic Small. ABSENT: dysuria Musculoskeletal: ABSENT: back pain Integumentary: ABSENT: diaphoresis Neurological: ABSENT: dizziness, focal weakness, syncope, tingling Psychiatric: ABSENT: hallucinations Endocrine: ABSENT: polyuria Physical Exam Vital Signs: Temp Pulse Resp BP Pulse Ox 98.1 F 74 19 181/74 H 97 09/23/20 19:46 09/23/20 19:46 09/23/20 19:46 09/23/20 19:46 09/23/20 19:46 Intake & Output 09/22/20 09/23/20 09/24/20 06:59 06:59 06:59 Output Total 300 Balance -300 Weight 87.543 kg General appearance: PRESENT: no acute distress, cooperative, obese, well- nourished Head exam: PRESENT: normocephalic Eye exam: PRESENT: other - cannot assess ocular movements due to blindness. ABSENT: scleral icterus Mouth exam: PRESENT: moist Neck exam: ABSENT: JVD Respiratory exam: PRESENT: clear to auscultation maggi, symmetrical, unlabored. ABSENT: tachypnea, wheezes Cardiovascular exam: PRESENT: RRR, +S1, +S2. ABSENT: tachycardia GI/Abdominal exam: PRESENT: soft. ABSENT: rebound, rigid, tenderness Extremities exam: PRESENT: pedal edema Neurological exam: PRESENT: alert, awake, oriented to person, oriented to place, oriented to time, oriented to situation, other - No evidence of dysarthria. Cranial nerves examination is limited due to patient's blindness.. ABSENT: motor sensory deficit, aphasic Psychiatric exam: ABSENT: agitated, anxious Focused psych exam: ABSENT: pressured speech Skin exam: ABSENT: jaundice Results Laboratory Results: 09/23/20 19:20 09/23/20 14:10 09/23/20 09/23/20 09/23/20 14:10 14:10 14:13 WBC 3.6 L RBC 4.55 Hgb 12.8 Hct 38.2 MCV 84 MCH 28.0 MCHC 33.4 RDW 14.9 H Plt Count 11 L* Seg Neutrophils % Not Reportable Sodium 141.4 Potassium 4.7 Chloride 108 H Carbon Dioxide 21 L Anion Gap 12 BUN 35 H Creatinine 1.10 Est GFR ( Amer) > 60 Glucose 115 H Calcium 9.9 Total Bilirubin 0.8 AST 20 Alkaline Phosphatase 104 Total Protein 7.3 Albumin 4.1 Urine Color YELLOW Urine Appearance CLEAR Urine pH 7.0 Ur Specific [place] 1.018 Urine Protein 100 H Urine Glucose (UA) NEGATIVE Urine Ketones NEGATIVE Urine Blood SMALL H Urine RBC (Auto) 7 09/23/20 09/23/20 18:16 19:20 WBC Cancelled 4.9 RBC Cancelled 4.16 Hgb Cancelled 11.6 L Hct Cancelled 34.7 L MCV Cancelled 83 MCH Cancelled 27.9 MCHC Cancelled 33.5 RDW Cancelled 14.8 H Plt Count Cancelled 127 L D Seg Neutrophils % Cancelled 69.3 Sodium Potassium Chloride Carbon Dioxide Anion Gap BUN Creatinine Est GFR ( Amer) Glucose Calcium Total Bilirubin AST Alkaline Phosphatase Total Protein Albumin Urine Color Urine Appearance Urine pH Ur Specific [place] Urine Protein Urine Glucose (UA) Urine Ketones Urine Blood Urine RBC (Auto) 09/23/20 14:10 Troponin I Cancelled Impressions: Chest X-Ray 09/23/20 12:49 IMPRESSION: NO ACUTE RADIOGRAPHIC FINDING IN THE CHEST. Head CT 09/23/20 12:49 IMPRESSION: Stable CT appearance of the brain. No acute intracranial abnormality. EVIDENCE OF ACUTE STROKE: NO. Head MRI 09/23/20 15:25 IMPRESSION: Chronic ischemic changes and evidence of multiple old hemorrhages as above. No acute intracranial abnormality is seen. copyright 2010 [employer]- All Rights Reserved Assessment and Plan - Diagnosis (1) TIA (transient ischemic attack) Is this a current diagnosis for this admission?: Yes Plan: Likely had a TIA. Neuro exams frequent Head CT shows no evidence of bleeding. MRI of the brain shows evidence of old lacunar infarct as well as significant chronic cerebrovascular disease and evidence of old microhemorrhages but no evidence of any acute or subacute strokes. Optimize blood pressure. Check lipid panel Neurovascular imaging Monitor on telemetry Aspirin Plavix and statin Patient educator consulted (2) Hypertension Qualifiers: Hypertension type: essential hypertension Qualified Code(s): I10 - Essential (primary) hypertension Is this a current diagnosis for this admission?: Yes Plan: Currently uncontrolled. Resume lisinopril, amlodipine and Coreg. BP needs to be optimized. (3) Diabetes mellitus type 2 in obese Is this a current diagnosis for this admission?: Yes Plan: Resume her home Lantus regimen of 20 units nightly. Sliding scale and Accu- Cheks (4) Kidney transplant recipient Is this a current diagnosis for this admission?: Yes Plan: Prednisone, tacrolimus and Myfortic (5) Thrombocytopenia Is this a current diagnosis for this admission?: Yes Plan: Chronic. Seems stable. Evaluated by oncology during last admission. (6) Urinary retention Is this a current diagnosis for this admission?: Yes Plan: Indwelling chronic Small. - Time Time Spent with patient: 35 or more minutes Anticipated Discharge Disposition: Home with Home Health Anticipated Discharge Timeframe: within 36 hours
[2020-09-23] MEDS ORDERED: ACETAMINOPHEN 325 MG TABLET PO PRN (21:49)
[2020-09-23] MEDS ORDERED: MAG HYDROX/AL HYDROX/SIMETH SUSP 30 ML UDCUP PO PRN (21:49)
[2020-09-23] MEDS ORDERED: ONDANSETRON HCL INJ/PF 4 MG/2 ML SDV IV PRN (21:49)
[2020-09-23] MEDS ORDERED: DEXTROSE 50%-WATER 25 GM/50 ML DISP.SYRIN IV PRN ×2 (21:52)
[2020-09-23] MEDS ORDERED: GLUCAGON,HUMAN RECOMB 1 MG INJ IM PRN (21:52)
[2020-09-23] MEDS ORDERED: DEXTROSE 40% GEL 15 GM TUBE PO PRN ×2 (21:52)
[2020-09-23] MEDS ORDERED: LISINOPRIL 10 MG TABLET PO ONE (21:55)
[2020-09-23] MEDS ORDERED: METOCLOPRAMIDE HCL 10 MG TABLET PO PRN (21:55)
[2020-09-23] MEDS ORDERED: ASPIRIN 81 MG TABLET, CHEWABLE PO ONE (21:55)
[2020-09-23] MEDS ORDERED: CLOPIDOGREL BISULFATE 75 MG TABLET PO ONE (21:55)
[2020-09-23] MEDS ORDERED: ATORVASTATIN CALCIUM 40 MG TABLET PO SCH (22:00)
[2020-09-23] MEDS ORDERED: INSULIN GLARGINE,HUM.REC.ANLOG 1,000 UNIT/10 ML VIAL SUBCUT SCH (22:00)
[2020-09-23] MEDS: INSULIN LISPRO 100 UNIT/ML 3 ML VIAL SUBCUT SCH (22:24)
[2020-09-23] MEDS: FAMOTIDINE 20 MG TABLET PO SCH (22:43)
[2020-09-23] MEDS: CARVEDILOL 12.5 MG TABLET PO SCH (22:44)
[2020-09-23] MEDS: AMLODIPINE BESYLATE 5 MG TABLET PO SCH (22:45)
[2020-09-24] MEDS ORDERED: MYCOPHENOLATE MOFETIL 250 MG CAPSULE ONE ×2 (00:42→01:39)
[2020-09-24] MEDS: TACROLIMUS ANHYDROUS 1 MG CAPSULE PO SCH ×2 (01:48→10:06)
[2020-09-24] MEDS: MYCOPHENOLATE MOFETIL 250 MG CAPSULE PO SCH ×2 (01:48→10:05)
[2020-09-24] MEDS: INSULIN LISPRO 100 UNIT/ML 3 ML VIAL SUBCUT SCH ×3 (09:16→17:32)
[2020-09-24] MEDS ORDERED: LISINOPRIL 10 MG TABLET PO SCH (10:00)
[2020-09-24] MEDS ORDERED: DOCUSATE SODIUM 100 MG CAPSULE PO SCH (10:00)
[2020-09-24] MEDS ORDERED: ASPIRIN 81 MG TABLET, ENT COATED PO SCH (10:00)
[2020-09-24] MEDS ORDERED: CLOPIDOGREL BISULFATE 75 MG TABLET PO SCH (10:00)
[2020-09-24] MEDS ORDERED: PREDNISONE 5 MG TABLET PO SCH (10:00)
[2020-09-24] MEDS ORDERED: ENOXAPARIN SODIUM INJ 40 MG/0.4 ML DISP.SYRIN SUBCUT SCH (10:00)
[2020-09-24] MEDS: AMLODIPINE BESYLATE 5 MG TABLET PO SCH (10:06)
[2020-09-24] MEDS: FAMOTIDINE 20 MG TABLET PO SCH (10:06)
[2020-09-24] MEDS: CARVEDILOL 12.5 MG TABLET PO SCH (10:07)
--- NOTE | 2020-09-24 17:40 | XCELERA REPORT ---
[address] [address] Transthoracic Echocardiogram Report Name: HETAL BERMAN Age: 69 yrs Gender: Female : 1950 Patient Status: Inpatient Patient Location: [address] [place] [address] Study Date: 09/24/2020 03:17 PM History: PRISCILA Height: 64 in Weight: 193 lb BSA: 1.9 m2 Procedure: A complete two-dimensional transthoracic echocardiogram was performed (2D, M-mode, spectral and color flow Doppler). Reason For Study: tia Previous Evaluation: No previous studies were available. History: TIA. Ordering Physician: MINAL ALVAREZ Performed By: Michelet Elliott Interpretation Summary Left ventricular systolic function is normal. The Ejection Fraction estimate is 55-60% The right ventricle is normal in size and function. There is a trace amount of mitral regurgitation There is no aortic valve stenosis There is a mild amount of aortic regurgitation There is a trace amount of tricuspid regurgitation There is no pericardial effusion. MMode/2D Measurements & Calculations RVDd: 3.3 cm LVIDd: 4.6 cm FS: 48.5 % Ao root diam: 3.0 cm IVSd: 1.6 cm LVIDs: 2.4 cm EDV(Teich): 97.4 ml Ao root area: 7.3 cm2 LVPWd: 1.5 cm ESV(Teich): 19.5 ml LA dimension: 4.8 cm EF(Teich): 80.0 % Doppler Measurements & Calculations MV E max pricila: MV P1/2t max pricila: Ao V2 max: LV V1 max P.3 cm/sec 110.0 cm/sec 188.0 cm/sec 5.7 mmHg MV A max pricila: MV P1/2t: 80.1 msec Ao max PG: LV V1 max: 125.9 cm/sec MVA(P1/2t): 2.7 cm2 14.1 mmHg 119.4 cm/sec MV E/A: 0.76 MV dec slope: 402.4 cm/sec2 MV dec time: 0.33 sec PA V2 max: PI end-d pricila: TR max pricila: MV P1/2t-pr_phl: 130.2 cm/sec 111.8 cm/sec 286.4 cm/sec 80.1 msec PA max P.8 mmHg TR max P.8 mmHg Left Ventricle The left ventricle is normal in size. There is severe concentric left ventricular hypertrophy. Left ventricular systolic function is normal. The Ejection Fraction estimate is 55-60%. Doppler measurements suggest impaired left ventricular relaxation, which is associated with grade I/IV or mild diastolic dysfunction. No regional wall motion abnormalities noted. There is no thrombus. Right Ventricle The right ventricle is normal in size and function. Atria The right atrium is normal. The left atrium is mildly dilated. The interatrial septum is intact with no evidence for an atrial septal defect. There is no Doppler evidence for an interatrial shunt. Mitral Valve Calcified mitral apparatus. There is no mitral valve stenosis. There is a trace amount of mitral regurgitation. Aortic Valve The aortic valve is sclerotic and shows some degree of functional abnormality. The aortic valve is mildly calcified. The aortic valve opens well. There is no aortic valve stenosis. There is a mild amount of aortic regurgitation. Tricuspid Valve The tricuspid valve is normal in structure and function. There is a trace amount of tricuspid regurgitation. Tricuspid regurgitation jet envelope not well defined to measure RV systolic pressure accurately. Pulmonic Valve The pulmonic valve is normal in structure and function. There is no pulmonic valvular stenosis. There is a trace amount of pulmonic regurgitation. Great Vessels The aortic root is normal size. The inferior vena cava appeared normal and decreased < 50% with respiration (RAP 10-15 mmHg). Effusions There is no pericardial effusion. : MINAL ALVAREZ Anil
[2020-09-24 18:01] VITALS: BP 145/54
--- NOTE | 2020-09-25 01:39 | RADIOLOGY REPORT (SQ) ---
BILATERAL CAROTID ARTERY ULTRASOUND: 09/25/2020 12:37 AM SMEARER TECHNIQUE: Grayscale, color, and spectral evaluation of the carotid arteries was performed. COMPARISON: MRI of the brain from 09/23/2020 CLINICAL HISTORY: 69-year old patient with TIA, slurred speech. TECHNIQUE: Mills-scale, duplex and color Doppler images of the carotid systems are obtained bilaterally. (Validated velocity measurements with angiographic measurements - Velocity criteria are extrapolated from diameter data as defined by the Society of Radiologists in Ultrasound Consensus Conference, Radiology 2003; 229; 340 - 346.) FINDINGS: Minimal atherosclerotic plaque and intimal thickening is seen within both carotid bulbs as well as the proximal internal and external carotid arteries. Spectral analysis demonstrates peak systolic and end-diastolic velocities as follows: RIGHT: CCA: 92.1 cm/s, 9.4 cm/s Proximal ICA: 59.0 cm/s, 6.6 cm/s Distal ICA: 85.4 cm/s, 12.8 cm/s LEFT: CCA: 99.2 cm/s, 11.3 cm/s Proximal ICA: 73.0 cm/s, 6.6 cm/s Distal ICA: 96.7 cm/s, 15.2 cm/s The ICA:CCA ratio on the right is 1.0, and on the left is 1.3. There is antegrade flow in both vertebral arteries. IMPRESSION: No evidence of a hemodynamically significant abnormality within the internal carotid arteries. Peak systolic and end-diastolic velocities are all consistent with luminal narrowing of less than 50%.
--- NOTE | 2020-09-27 17:24 | PDOC DISCHARGE SUMMARY ---
Impression - Admit/DC Date/PCP Admission Date/Primary Care Provider: 09/23/20 21:15 BRIA VALENCIA MD Discharge Date: 09/27/20 - Additional Information Resuscitation Status: Full Code Discharge Diet: Cardiac Discharge Activity: Activity As Tolerated, Balance Activity w/Rest Referrals: BRIA VALENCIA MD [Primary Care Provider] - 10/02/20 2:30 pm Prescriptions: Rosuvastatin Calcium [Crestor] 20 mg PO QHS 30 Days #30 tablet Home Medications: Aspirin [Ecotrin] 81 mg PO QAM 12/28/19 Metoclopramide HCl [Reglan] 5 mg PO BIDP PRN 12/28/19 Mycophenolate Sodium [Myfortic 360 mg Tablet.dr] 360 mg PO Q12 12/28/19 Omeprazole 20 mg PO QAM 12/28/19 Prednisone [Deltasone 5 mg Tablet] 5 mg PO QAM 12/28/19 Tacrolimus Anhydrous [Prograf 1 mg Capsule] 1 mg PO Q12 12/28/19 Temazepam [Restoril 15 mg Capsule] 15 mg PO HSP PRN 12/28/19 Insulin Aspart [Novolog Flexpen] 0 unit SUBCUT .SLD SCALE 08/19/20 Lubiprostone [Amitiza 24 Mcg Capsule] 24 mcg PO DAILYP PRN 08/19/20 Carvedilol [Coreg 6.25 mg Tablet] 6.25 mg PO Q12 09/23/20 Insulin Glargine,Hum.rec.anlog [Lantus (Pyxis) Insulin 100 Unit/1 ml 10 ml] 30 unit SUBCUT QHS 09/23/20 Rosuvastatin Calcium [Crestor] 20 mg PO QHS 30 Days #30 tablet 09/24/20 History of Present Illiness History of Present Illness: As per admitting physician's note HETAL BERMAN is a 69 year old female with history of diabetes, hypertension, renal transplant, blindness, urinary retention with indwelling Small, who presents to the hospital for evaluation of slurred speech and facial droop. Patient has a home health aide who picked up today that patient had the symptoms around noon. Patient informs me that she did not notice the symptoms herself but her also noted the symptoms. told her that they resolved after about 15 minutes. Subsequently came in for evaluation. Patient denies any notable weaknesses. She states she has been having difficulty walking since her last UTI. She has physical therapy at home and walks around with assistance. She denies any new neurological sympt oms. She denies prior history of strokes or TIAs. Hospital Course Hospital Course: (1) TIA (transient ischemic attack) Back to baseline. Likely had a TIA. Head CT shows no evidence of bleeding. MRI/MRA head negative for any acute stroke. 2D echo negative for any sign of thromboembolic. Carotid Doppler negative for any hemodynamically significant stenosis. Patient was discharged on aspirin, Crestor, and was advised to resume antihypertensive medications. Patient and family were counseled on importance of monitoring BP, taking antiplatelets and statins and optimizing her diabetic control. If not even though patient is high risk for cardiovascular disease she was not on statins, as per patient and she was a started on some type of statin and then she developed some fatigue was attributed to her statin and her statin was DC'd by her PCP. Patient was discharged on Crestor and family and patient were extensively advised on importance of statins in preventing further cardiovascular events. Patient and family were counseled on closely monitoring LFTs and CK and following up with PCP to be transition to another class of statins if she could not tolerate statins. (2) Hypertension Resumed lisinopril, amlodipine and Coreg. Advised to follow-up with PCP. (3) Diabetes mellitus type 2 in obese Resumed her home Lantus regimen of 20 units nightly. Sliding scale and Accu- Cheks (4) Kidney transplant recipient Resumed prednisone, tacrolimus and Myfortic (5) Thrombocytopenia Chronic. Seems stable. Evaluated by oncology during last admission. Follows with Dr. Connor as outpatient. (6) Urinary retention Indwelling chronic Small. Follows with urologist as outpatient. As per her urinary catheter was removed by urologist however she was noted to be retaining urine again, and her Small catheter was reinserted. Patient and family were counseled on importance of good Small catheter care and risk of recurrent UTIs. Physical Exam Vital Signs: Temp Pulse Resp BP Pulse Ox 98.5 F 76 18 145/54 H 100 09/24/20 18:00 09/24/20 18:00 09/24/20 18:00 09/24/20 18:00 09/24/20 18:00 General appearance: PRESENT: no acute distress, well-developed, well-nourished Head exam: PRESENT: atraumatic, normocephalic Respiratory exam: PRESENT: clear to auscultation maggi. ABSENT: rales, rhonchi, wheezes Cardiovascular exam: PRESENT: RRR. ABSENT: diastolic murmur, rubs, systolic murmur GI/Abdominal exam: PRESENT: normal bowel sounds, soft. ABSENT: distended, guarding, mass, organolmegaly, rebound, tenderness Neurological exam: PRESENT: alert, awake, oriented to person, oriented to place, oriented to time, oriented to situation, CN II-XII grossly intact. ABSENT: motor sensory deficit Results Laboratory Results: WBC 4.9 10^3/uL (4.0-10.5) 09/23/20 19:20 RBC 4.16 10^6/uL (3.72-5.28) 09/23/20 19:20 Hgb 11.6 g/dL (12.0-15.5) L 09/23/20 19:20 Hct 34.7 % (36.0-47.0) L 09/23/20 19:20 MCV 83 fl (80-97) 09/23/20 19:20 MCH 27.9 pg (27.0-33.4) 09/23/20 19: MCHC 33.5 g/dL (32.0-36.0) 09/23/20 19:20 RDW 14.8 % (11.5-14.0) H 09/23/20 19:20 Plt Count 127 10^3/uL (150-450) L 09/23/20 19:20 Lymph % (Auto) 17.6 % (13-45) 09/23/20 19:20 [place] % (Auto) 9.7 % (3-13) 09/23/20 19:20 Eos % (Auto) 2.5 % (0-6) 09/23/20 19:20 Baso % (Auto) 0.9 % (0-2) 09/23/20 19:20 Absolute Neuts (auto) 3.4 10^3/uL (1.7-8.2) 09/23/20 19:20 Absolute Lymphs (auto) 0.9 10^3/uL (0.5-4.7) 09/23/20 19:20 Absolute Monos (auto) 0.5 10^3/uL (0.1-1.4) 09/23/20 19:20 Absolute Eos (auto) 0.1 10^3/uL (0.0-0.6) 09/23/20 19:20 Absolute Basos (auto) 0.0 10^3/uL (0.0-0.2) 09/23/20 19:20 Total Counted 09/23/20 14:10 Seg Neutrophils % 69.3 % (42-78) 09/23/20 19:20 Seg Neuts % (Manual) % (42-78) 09/23/20 14:10 Lymphocytes % (Manual) % (13-45) 09/23/20 14:10 Monocytes % (Manual) % (3-13) 09/23/20 14:10 Eosinophils % (Manual) % (0-6) 09/23/20 14:10 Basophils % (Manual) % (0-2) 09/23/20 14:10 Abs Neuts (Manual) 10^3/uL (1.7-8.2) 09/23/20 14:10 Abs Lymphs (Manual) 10^3/uL (0.5-4.7) 09/23/20 14:10 Abs Monocytes (Manual) 10^3/uL (0.1-1.4) 09/23/20 14:10 Absolute Eos (Manual) 10^3/uL (0.0-0.6) 09/23/20 14:10 Abs Basophils (Manual) 10^3/uL (0.0-0.2) 09/23/20 14:10 Platelet Estimate Cancelled 09/23/20 18:16 Platelet Comment DECREASED 09/23/20 19:20 Poikilocytosis SLIGHT 09/23/20 19:20 Anisocytosis SLIGHT 09/23/20 19:20 Ovalocytes SLIGHT 09/23/20 19:20 Schistocytes SLIGHT 09/23/20 19:20 RBC Morph Comment 09/23/20 14:10 PT 13.5 SEC (11.4-15.4) 09/23/20 14:10 INR 1.01 09/23/20 14:10 APTT 22.4 SEC (23.5-35.8) L 09/23/20 14:10 Sodium 141.4 mmol/L (137-145) 09/23/20 14:10 Potassium 4.7 mmol/L (3.6-5.0) 09/23/20 14:10 Chloride 108 mmol/L (98-107) H 09/23/20 14:10 Carbon Dioxide 21 mmol/L (22-30) L 09/23/20 14:10 Anion Gap 12 (5-19) 09/23/20 14:10 BUN 35 mg/dL (7-20) H 09/23/20 14:10 Creatinine 1.10 mg/dL (0.52-1.25) 09/23/20 14:10 Est GFR ( Amer) > 60 (>60) 09/23/20 14:10 Est GFR (MDRD) Non-Af 49 (>60) L 09/23/20 14:10 Glucose 115 mg/dL (75-110) H 09/23/20 14:10 POC Glucose 155 mg/dL (70-110) H 09/24/20 17:23 Calcium 9.9 mg/dL (8.4-10.2) 09/23/20 14:10 Total Bilirubin 0.8 mg/dL (0.2-1.3) 09/23/20 14:10 Direct Bilirubin 0.1 mg/dL (0.0-0.4) 09/23/20 14:10 Neonat Total Bilirubin Not Reportable 09/23/20 14:10 Neonat Direct Bilirubin Not Reportable 09/23/20 14:10 Neonat Indirect Bili Not Reportable 09/23/20 14:10 AST 20 U/L (14-36) 09/23/20 14:10 ALT 11 U/L (<35) 09/23/20 14:10 Alkaline Phosphatase 104 U/L (38-126) 09/23/20 14:10 Troponin I Cancelled 09/23/20 14:10 Total Protein 7.3 g/dL (6.3-8.2) 09/23/20 14:10 Albumin 4.1 g/dL (3.5-5.0) 09/23/20 14:10 Urine Color YELLOW 09/23/20 14:13 Urine Appearance CLEAR 09/23/20 14:13 Urine pH 7.0 (5.0-9.0) 09/23/20 14:13 Ur Specific [place] 1.018 09/23/20 14:13 Urine Protein 100 mg/dL (NEGATIVE) H 09/23/20 14:13 Urine Glucose (UA) NEGATIVE mg/dL (NEGATIVE) 09/23/20 14:13 Urine Ketones NEGATIVE mg/dL (NEGATIVE) 09/23/20 14:13 Urine Blood SMALL (NEGATIVE) H 09/23/20 14:13 Urine Nitrite (Reflex) NEGATIVE (NEGATIVE) 09/23/20 14:13 Urine Bilirubin NEGATIVE (NEGATIVE) 09/23/20 14:13 Urine Urobilinogen NEGATIVE mg/dL (<2.0) 09/23/20 14:13 Leukocyte Esterase Rfl TRACE (NEGATIVE) H 09/23/20 14:13 Urine RBC (Auto) 7 /HPF 09/23/20 14:13 Urine WBC (Reflex) 3 /HPF 09/23/20 14:13 Urine Mucus (Auto) RARE /LPF 09/23/20 14:13 Urine Ascorbic Acid NEGATIVE (NEGATIVE) 09/23/20 14:13 Slides for Path Review Cancelled 09/23/20 18:16 09/23/20 14:10 Troponin I Cancelled Impressions: Chest X-Ray 09/23/20 12:49 IMPRESSION: NO ACUTE RADIOGRAPHIC FINDING IN THE CHEST. Head CT 09/23/20 12:49 IMPRESSION: Stable CT appearance of the brain. No acute intracranial abnormality. EVIDENCE OF ACUTE STROKE: NO. Head MRI 09/23/20 15:25 IMPRESSION: Chronic ischemic changes and evidence of multiple old hemorrhages as above. No acute intracranial abnormality is seen. copyright 2011 [employer] All Rights Reserved Carotid Doppler Study 09/24/20 00:00 IMPRESSION: No evidence of a hemodynamically significant abnormality within the internal carotid arteries. Peak systolic and end-diastolic velocities are all consistent with luminal narrowing of less than 50%. Stroke Is this a Stroke Patient?: No Acute Heart Failure Is this a Heart Failure Patient?: No
== END 2020-09-24 19:45 | disposition home or self-care (01) ==
LOC: ER 12:40 → EH 21:15 → 3S 09-24 14:05
PROVIDERS: ADMIT Internal Medicine; ATTEND Internal Medicine
DX: G45.9 Transient cerebral ischemic attack, unspecified (principal); E11.51 Type 2 diabetes mellitus with diabetic peripheral angiopathy without gangrene; I10 Essential (primary) hypertension; D69.6 Thrombocytopenia, unspecified; R33.9 Retention of urine, unspecified; E66.9 Obesity, unspecified; E78.5 Hyperlipidemia, unspecified; Z79.82 Long term (current) use of aspirin; Z94.0 Kidney transplant status; Z87.891 Personal history of nicotine dependence; R29.701 NIHSS score 1; Z79.4 Long term (current) use of insulin; Z79.899 Other long term (current) drug therapy; Z89.422 Acquired absence of other left toe(s); Z82.49 Family history of ischemic heart disease and other diseases of the circulatory system; Z87.440 Personal history of urinary (tract) infections; H54.3 Unqualified visual loss, both eyes
CPT/HCPCS: 93005; 99285; 96372; 36415; 87086; 82962 ×2; 85025; 85610; 85730; 80053; 81001; 93306; 93880; 70551; 71045; 70450; 93010; 97530 ×2; 97163; 97535; 97167; G0378 ×3; A9270 ×19; J2060; J1815; J7507; J7512; J7517

== ENCOUNTER 2020-09-27 14:50 | Emergency (ER) | payer MEDICARE, BC ==
[2020-09-27 15:53] VITALS: BP 154/79
--- NOTE | 2020-09-27 17:20 | ER Document Report ---
ED Medical Screen (RME) - General Chief Complaint: Rectal Bleeding Stated Complaint: RECTAL BLEEDING Time Seen by Provider: 09/27/20 17:13 Primary Care Provider: BRIA VALENCIA MD [Primary Care Provider] - Follow up as needed Mode of Arrival: Wheelchair Information source: Patient Notes: 69-year-old female presented to ED for complaint of rectal bleeding. states that she was into the hospital through Wednesday. She was discharged on Wednesday had a Small catheter changed on Wednesday after a bowel movement on Wednesday she went to the bathroom and had a pool of blood. States yesterday he did not notice any bowel movement but she did have a pool of blood when she felt like she needed to go to the bathroom and today's this morning she got up felt like she had some gas and just had a pool of blood with no stool. He states she is constipated and has a longtime problem with constipation. We will get blood urine and type and screen as well as a acute abdomen and she will be seen by a another provider. I have greeted and performed a rapid initial assessment of this patient. A comprehensive ED assessment and evaluation of the patient, analysis of test results and completion of medical decision making process will be conducted by an additional ED providers. TRAVEL OUTSIDE OF THE [place] IN LAST 30 DAYS: No - Related Data Allergies/Adverse Reactions: azithromycin [From Zithromax] Adverse Reaction (Verified 09/27/20 17:14) codeine [Codeine] Adverse Reaction (Verified 09/27/20 17:14) Past Medical History - Past Medical History Cardiac Medical History: Reports: Hx Coronary Artery Disease, Hx Hyperch olesterolemia, Hx Hypertension, Hx Peripheral Vascular Disease Denies: Hx Atrial Fibrillation, Hx Congestive Heart Failure, Hx Heart Attack Pulmonary Medical History: Denies: Hx Asthma, Hx Bronchitis, Hx COPD, Hx Pneumonia Neurological Medical History: Denies: Hx Cerebrovascular Accident, Hx Seizures Endocrine Medical History: Reports: Hx Diabetes Mellitus Type 2. Denies: Hx Diabetes Mellitus Type 1, Hx Hyperthyroidism, Hx Hypothyroidism Renal/ Medical History: Reports: Hx End Stage Renal Disease - w/ kidney transplant GI Medical History: Denies: Hx Cirrhosis, Hx Hepatitis Musculoskeltal Medical History: Denies Hx Arthritis, Denies Hx Fibromyalgia, Reports Hx Musculoskeletal Deformity Skin Medical History: Reports Hx Cellulitis, Denies Hx Eczema, Denies Hx Psoriasis Psychiatric Medical History: Denies: Hx Depression Infectious Medical History: Denies: Hx Hepatitis Past Surgical History: Reports: Hx Cholecystectomy, Hx Kidney (Renal Surgery) - transplant, 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 Denies: Hx Hysterectomy, Hx Pacemaker - Immunizations Hx Diphtheria, Pertussis, Tetanus Vaccination: Yes Physical Exam - Vital signs Vitals: Temp Pulse Resp BP Pulse Ox 97.7 F 69 16 154/79 H 100 09/27/20 15:52 09/27/20 15:52 09/27/20 15:52 09/27/20 15:52 09/27/20 15:52 Course - Vital Signs Vital signs: Temp Pulse Resp BP Pulse Ox 97.7 F 69 16 154/79 H 100 09/27/20 15:52 09/27/20 15:52 09/27/20 15:52 09/27/20 15:52 09/27/20 15:52 Doctor's Discharge - Discharge Referrals: BRIA VALENCIA MD [Primary Care Provider] - Follow up as needed
[2020-09-27 17:51] LABS: ABSOLUTE EOSINOPHILS # (AUTO) 0.1 10^3/uL (0.0-0.6); ABSOLUTE LYMPHOCYTES (AUTO) 0.6 10^3/uL (0.5-4.7); ABSOLUTE MONOCYTES (AUTO) 0.4 10^3/uL (0.1-1.4); ABSOLUTE NEUT (AUTO) 4.2 10^3/uL (1.7-8.2); BASOPHILS % (AUTO) 0.7 % (0-2); EOSINOPHILS % (AUTO) 1.6 % (0-6); HEMATOCRIT 36.8 % (36.0-47.0); HEMOGLOBIN 12.1 g/dL (12.0-15.5); LYMPHOCYTES % (AUTO) 10.8 % (13-45); MEAN CORPUSCULAR HEMOGLOBIN 27.8 pg (27.0-33.4); MEAN CORPUSCULAR VOLUME 84 fl (80-97); MONOCYTES % (AUTO) 7.3 % (3-13); PLATELET COUNT 142 10^3/uL (150-450); RED BLOOD COUNT 4.36 10^6/uL (3.72-5.28); RED CELL DISTRIBUTION WIDTH 15.1 % (11.5-14.0); SEGMENTED NEUTROPHILS % (AUTO) 79.6 % (42-78); TOTAL CELLS COUNTED % (AUTO) 100 %; WHITE BLOOD COUNT 5.2 10^3/uL (4.0-10.5)
--- NOTE | 2020-09-27 18:03 | RADIOLOGY REPORT (SQ) ---
EXAM DESCRIPTION: ACUTE ABDOMEN SERIES IMAGES COMPLETED DATE/TIME: 09/27/2020 5:46 pm REASON FOR STUDY: Possible constipation COMPARISON: 08/18/2020 NUMBER OF VIEWS: Three views. TECHNIQUE: Frontal chest, supine abdomen and upright/decubitus abdomen radiographic images acquired. LIMITATIONS: None. FINDINGS: CHEST: Atelectasis at the left base. FREE AIR: None. No abnormal gas collections. BOWEL GAS PATTERN: Nonobstructive pattern. Large amount of fecal material in the colon. CALCIFICATIONS: Phleboliths are calcified. HARDWARE: IUD present in expected location. Right upper quadrant clips. SOFT TISSUES: No gross mass or suggestion of organomegaly. BONES: No acute fracture. No worrisome bone lesions. OTHER: No other significant finding. IMPRESSION: Moderate constipation. Atelectasis at the left base. IUD in expected location. TECHNICAL DOCUMENTATION: JOB ID: [id number] 2010 [employer]- All Rights Reserved Reading location - IP/workstation name: [email or web address]
[2020-09-27 18:05] LABS: ALBUMIN 3.7 g/dL (3.5-5.0); ALKALINE PHOSPHATASE 94 U/L (38-126); ANION GAP 6 (5-19); ASPARTATE AMINO TRANSFERASE 15 U/L (14-36); BILIRUBIN,DIRECT 0.1 mg/dL (0.0-0.4); BILIRUBIN,TOTAL 0.7 mg/dL (0.2-1.3); BLOOD UREA NITROGEN 36 mg/dL (7-20); CALCIUM 9.8 mg/dL (8.4-10.2); CARBON DIOXIDE 23 mmol/L (22-30); CHLORIDE 110 mmol/L (98-107); GLUCOSE 148 mg/dL (75-110); POTASSIUM 4.8 mmol/L (3.6-5.0)
[2020-09-27 21:25] LABS: APPEARANCE,URINE CLEAR; BILIRUBIN,URINE NEGATIVE (NEGATIVE); COLOR,URINE YELLOW; GLUCOSE, URINE NEGATIVE (NEGATIVE); KETONES,URINE NEGATIVE (NEGATIVE); LEUKOCYTE ESTERASE,URINE SMALL (NEGATIVE); NITRITE,URINE NEGATIVE (NEGATIVE); PROTEIN,URINE 100 mg/dL (NEGATIVE); UROBILINOGEN,URINE NEGATIVE mg/dL (<2.0)
--- NOTE | 2020-09-27 23:42 | ER Document Report ---
ED GI Bleed / Rectal Pain - General Chief Complaint: Rectal Bleeding Stated Complaint: RECTAL BLEEDING Time Seen by Provider: 09/27/20 17:13 Primary Care Provider: BRIA VALENCIA MD [Primary Care Provider] - Follow up as needed Mode of Arrival: Wheelchair Notes: 69-year-old woman who is brought to the emergency department because of bright red blood per rectum on 3 separate occasions. The patient is having no pain and there were small areas of bright red blood noted on her undergarment. She is presently hemodynamically stable and alert. She denies any pain and has had some constipation and straining related to status. She has an indwelling Small catheter and is scheduled to see urology in [place] on Wednesday. Medical history is significant for diabetes mellitus type 2, hypertension, end-stage renal disease, hypercholesterolemia, and poorly functioning bladder. TRAVEL OUTSIDE OF THE [place] IN LAST 30 DAYS: No - Related Data Allergies/Adverse Reactions: azithromycin [From Zithromax] Adverse Reaction (Verified 09/27/20 17:14) codeine [Codeine] Adverse Reaction (Verified 09/27/20 17:14) Past Medical History - General Information source: Patient - Social History Smoking Status: Never Smoker Chew tobacco use (# tins/day): No Frequency of alcohol use: None Drug Abuse: None Family History: CAD, DM, Malignancy Patient has homicidal ideation: No - Past Medical History Cardiac Medical History: Reports: Hx Coronary Artery Disease, Hx Hypercholesterolemia, Hx Hypertension, Hx Peripheral Vascular Disease Denies: Hx Atrial Fibrillation, Hx Congestive Heart Failure, Hx Heart Attack Pulmonary Medical History: Denies: Hx Asthma, Hx Bronchitis, Hx COPD, Hx Pneumonia Neurological Medical History: Denies: Hx Cerebrovascular Accident, Hx Seizures Endocrine Medical History: Reports: Hx Diabetes Mellitus Type 2. Denies: Hx Diabetes Mellitus Type 1, Hx Hyperthyroidism, Hx Hypothyroidism Renal/ Medical History: Reports: Hx End Stage Renal Disease - w/ kidney transplant GI Medical History: Denies: Hx Cirrhosis, Hx Hepatitis Musculoskeletal Medical History: Denies Hx Arthritis, Denies Hx Fibromyalgia, Reports Hx Musculoskeletal Deformity Skin Medical History: Reports Hx Cellulitis, Denies Hx Eczema, Denies Hx Psoriasis Psychiatric Medical History: Denies: Hx Depression Infectious Medical History: Denies: Hx Hepatitis Past Surgical History: Reports: Hx Cholecystectomy, Hx Kidney (Renal Surgery) - transplant, 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 Denies: Hx Hysterectomy, Hx Pacemaker - Immunizations Hx Diphtheria, Pertussis, Tetanus Vaccination: Yes Hx Pneumococcal Vaccination: 11/01/09 Review of Systems - Review of Systems Notes: Constitutional: Negative for fever. HENT: Negative for sore throat. Eyes: Negative for visual changes. Cardiovascular: Negative for chest pain. Respiratory: Negative for shortness of breath. Gastrointestinal: See HPI. Genitourinary: Negative for dysuria. Musculoskeletal: Negative for back pain. Skin: Negative for rash. Neurological: Negative for headaches, weakness or numbness. 10 point ROS negative except as marked above and in HPI. Physical Exam - Vital signs Vitals: Temp Pulse Resp BP Pulse Ox 97.7 F 69 16 154/79 H 100 09/27/20 15:52 09/27/20 15:52 09/27/20 15:52 09/27/20 15:52 09/27/20 15:52 - Notes Notes: PHYSICAL EXAMINATION: Physical Exam: General: Chronically ill appearing 69-year-old woman lying in bed in no acute distress HEENT: NC/AT, pupils equal round and reactive to light, MM moist,nares clear, o ropharynx clear, airway patent Neck: supple, no adenopathy, no masses. Good range of motion Lungs: clear, no wheezing, no rales no rhonchi CVS: Regular rate and rhythm no murmur gallop or rub Abdomen: Soft, active, nontender, no masses, no hepatosplenomegaly : Indwelling Small catheter Ext: No edema, clubbing or cyanosis. Neuro: Alert and responsive, no focal findings Skin: Intact no open lesions, no rash Course - Re-evaluation Re-evalutation: 09/28/20 01:25 I have reviewed the lab findings and compared with the H&H to previous labs. Patient's hemoglobin tonight is 12.1, prior hemoglobins were 11.9 and 11.6 on previous hospital stays. I have explained to the patient and that while she has bright red blood per rectum, there has not been a significant drop in the hemoglobin to require hospitalization for transfusion or GI intervention. Patient is being discharged home, I have asked the to continue to monitor closely for further rectal bleeding and if there is a significant hemorrhage or concerned he may return to the emergency department for further evaluation and treatment. Both the and patient are in agreement with this plan and will be discharged home from the emergency department. - Vital Signs Vital signs: Temp Pulse Resp BP Pulse Ox 97.7 F 69 16 154/79 H 100 09/27/20 15:52 09/27/20 15:52 09/27/20 15:52 09/27/20 15:52 09/27/20 15:52 - Laboratory Result Diagrams: 09/27/20 17:27 09/27/20 17:27 Laboratory results interpreted by me: 09/27/20 09/27/20 09/27/20 17:27 17:27 21:09 RDW 15.1 H Plt Count 142 L Lymph % (Auto) 10.8 L Seg Neutrophils % 79.6 H Chloride 110 H BUN 36 H Est GFR (MDRD) Non-Af 51 L Glucose 148 H Urine Protein 100 H Urine Blood SMALL H Ur Leukocyte Esterase SMALL H - Diagnostic Test Radiology reviewed: Image reviewed, Reports reviewed Radiology results interpreted by me: 09/28/20 01:31 Acute Abdomen Series 09/27/20 17:18 IMPRESSION: Moderate constipation. Atelectasis at the left base. IUD in expected location. Discharge - Discharge Clinical Impression: Rectal bleeding Constipation Qualifiers: Constipation type: unspecified constipation type Qualified Code(s): K59.00 - Constipation, unspecified Condition: Good Disposition: HOME, SELF-CARE Instructions: Rectal Bleeding, Unclear Cause ([facility]) Additional Instructions: You were seen in the emergency department tonight with rectal bleeding episodes. Lab reveals that the blood count has not significantly changed and that the bleeding has not been significant enough to require transfusion or acute intervention. Continue to monitor any blood loss closely. You are being provided the name of the barrow worker helper here in [place] for follow-up. The hemoglobin was 12.0 tonight. Your symptoms are worsening or if there are other concerns you may return to the emergency department for further evaluation and treatment HOME CARE INSTRUCTIONS & INFORMATION: Thank you for choosing us for your medical needs. We hope you're satisfied with the care you received. After you leave, you must properly care for your problem and, at the same time, observe its progress. Any condition can change. Some illnesses can change rapidly over hours or days. If your condition worsens, return to the Emergency Department or see your physician promptly. ABOUT YOUR X-RAYS AND EKG'S: If you had an EKG or X-rays taken, they have been read by the Emergency Physician. The X-rays and EKG's will also be read by a Radiologist or Computer Builder within 24 hours. If discrepancies are noted, you will be notified by telephone. Please be certain the ED has a correct telephone number & address where you can be reached. Also, realize that some fractures or abnormalities do not show up on initial X-rays. If your symptoms continue, see your physician. ABOUT YOUR LABORATORY TEST: If you had laboratory tests, the results have been reviewed by the Emergency Physician. Some test results (for example cultures) may not be available for several days. You will be contacted if any test result shows you need additional treatment. Please be certain the ED has a correct telephone number and address where you can be reached. ABOUT YOUR MEDICATIONS: You will receive instructions on how to take your medicine on the prescription label you receive. Additional information may be provided by the Pharmacy. If you have questions afterwards, call the ED for clarification or further instructions. Some prescribed medications may cause dr owsinmaico. Do not perform tasks such as driving a car or operating machinery without consulting your Pharmacist. If you feel you need a refill of pain medication, your condition will need re-evaluation. Please do not call for a refill of any medication. ABOUT YOUR SIGNATURE: Signature of this document acknowledges to followin. Understanding that you received emergency treatment and that you may be released before al medical problems are known or treated. Please be certain the ED has a correct phone number & address where you can be reached. 2. Acknowledgement that you will arrange for follow-up care as recommended. 3. Authorization for the Emergency Physician to provide information to your follow-up Physician in order to maximize your care. AT ANY TIME, IF YOUR SYMPTOMS CHANGE SIGNIFICANTLY OR WORSEN OR YOU DEVELOP NEW SYMPTOMS, RETURN TO THE EMERGENCY DEPARTMENT IMMEDIATELY FOR RE-EVALUATION. OUR GOAL IS TO PROVIDE EXCELLENT MEDICAL CARE! WE HOPE THAT WE HAVE MET YOUR EXPECTATIONS DURING YOUR EMERGENCY DEPARTMENT VISIT AND THAT YOU FEEL YOU HAVE RECEIVED EXCELLENT CARE! Referrals: BRIA VALENCIA MD [Primary Care Provider] - Follow up as needed
== END 2020-09-27 23:48 | disposition home or self-care (01) ==
LOC: ER 14:50
DX: K62.5 Hemorrhage of anus and rectum (principal); K59.00 Constipation, unspecified; I12.0 Hypertensive chronic kidney disease with stage 5 chronic kidney disease or end stage renal disease; E11.22 Type 2 diabetes mellitus with diabetic chronic kidney disease; N18.6 End stage renal disease; Z88.1 Allergy status to other antibiotic agents; Z88.8 Allergy status to other drugs, medicaments and biological substances; I10 Essential (primary) hypertension
CPT/HCPCS: 36415; 74022; 80053; 81001; 82962; 83690; 85025; 86850; 86900; 86901; 87086; 99284

== ENCOUNTER 2020-11-09 17:24 | Emergency (ER) | payer MEDICARE, BC ==
--- NOTE | 2020-11-09 17:47 | RADIOLOGY REPORT (SQ) ---
EXAM DESCRIPTION: CT HEAD WITHOUT IMAGES COMPLETED DATE/TIME: 11/09/2020 4:33 pm REASON FOR STUDY: strokelike symptoms COMPARISON: CT head without contrast, 09/23/2020. MRI brain, 09/23/2020. TECHNIQUE: Axial images acquired through the brain without intravenous contrast. Images reviewed wi th bone, brain and subdural windows. Additional sagittal and coronal reconstructions were generated. Images stored on PACS. All CT scanners at this facility use dose modulation, iterative reconstruction, and/or weight based d osing when appropriate to reduce radiation dose to as low as reasonably achievable (ALARA). [facility]: Dose Right [facility]: CareDose [facility]: Dose Right [facility]: Teradose 4D [facility]: [employer]eral [employer]ical RADIATION DOSE: mGy. LIMITATIONS: None. FINDINGS: VENTRICLES: Normal size and contour. CEREBRUM: No masses. No hemorrhage. No midline shift. No evidence for acute infarction. Normal gra y-white matter differentiation. Moderate patchy periventricular, deep and subcortical white matter h ypodense attenuation consistent with moderate chronic small vessel ischemic change, stable. There is intracranial atherosclerosis. CEREBELLUM: No masses. No hemorrhage. No alteration of density. No evidence for acute infarction. EXTRAAXIAL SPACES: No fluid collections. No masses. ORBITS AND GLOBE: No intra- or extraconal masses. Normal contour of globe without masses. CALVARIUM: No fracture. PARANASAL SINUSES: No fluid or mucosal thickening. SOFT TISSUES: No mass or hematoma. OTHER: No other significant finding. IMPRESSION: No acute intracranial hemorrhage, mass, or evidence of acute territorial infarct. Moder ate chronic small vessel ischemic change and intracranial atherosclerosis is stable. EVIDENCE OF ACUTE STROKE: NO. COMMENT: Findings were communicated with the charge nurse at the time of dictation on 11/09/2020 at 17 41 hours [place] Quality ID # [id number]: Final reports with documentation of one or more dose reduction techniques (e.g., Au tomated exposure control, adjustment of the mA and/or kV according to patient size, use of iterative reconstruction technique) TECHNICAL DOCUMENTATION: JOB ID: [id number] 2010 [employer]- All Rights Reserved Reading location - IP/workstation name: [id number]
--- NOTE | 2020-11-09 18:06 | RADIOLOGY REPORT (SQ) ---
EXAM DESCRIPTION: CHEST SINGLE VIEW IMAGES COMPLETED DATE/TIME: 11/09/2020 4:35 pm REASON FOR STUDY: strokelike symptoms. COMPARISON: 09/23/2020 EXAM PARAMETERS: NUMBER OF VIEWS: One view. TECHNIQUE: Single frontal radiographic view of the chest acquired. RADIATION DOSE: NA LIMITATIONS: None. FINDINGS: LUNGS AND PLEURA: No opacities, masses or pneumothorax. No pleural effusion. MEDIASTINUM AND HILAR STRUCTURES: No masses. Contour normal. HEART AND VASCULAR STRUCTURES: Heart normal in size. Normal vasculature. BONES: No acute findings. HARDWARE: None in the chest. OTHER: No other significant finding. IMPRESSION: NO ACUTE RADIOGRAPHIC FINDING IN THE CHEST. TECHNICAL DOCUMENTATION: JOB ID: [id number] 2010 [employer]- All Rights Reserved Reading location - IP/workstation name: [id number]
[2020-11-09 18:58] LABS: ABSOLUTE EOSINOPHILS # (AUTO) 0.1 10^3/uL (0.0-0.6); ABSOLUTE LYMPHOCYTES (AUTO) 0.4 10^3/uL (0.5-4.7); ABSOLUTE MONOCYTES (AUTO) 0.3 10^3/uL (0.1-1.4); ABSOLUTE NEUT (AUTO) 5.6 10^3/uL (1.7-8.2); BASOPHILS % (AUTO) 0.4 % (0-2); EOSINOPHILS % (AUTO) 0.8 % (0-6); HEMATOCRIT 39.3 % (36.0-47.0); HEMOGLOBIN 12.8 g/dL (12.0-15.5); LYMPHOCYTES % (AUTO) 6.1 % (13-45); MEAN CORPUSCULAR HEMOGLOBIN 27.8 pg (27.0-33.4); MEAN CORPUSCULAR HGB CONC 32.7 g/dL (32.0-36.0); MEAN CORPUSCULAR VOLUME 85 fl (80-97); MONOCYTES % (AUTO) 5.1 % (3-13); PLATELET COUNT 116 10^3/uL (150-450); RED BLOOD COUNT 4.62 10^6/uL (3.72-5.28); RED CELL DISTRIBUTION WIDTH 15.4 % (11.5-14.0); SEGMENTED NEUTROPHILS % (AUTO) 87.6 % (42-78); TOTAL CELLS COUNTED % (AUTO) 100 %; WHITE BLOOD COUNT 6.3 10^3/uL (4.0-10.5)
[2020-11-09 19:04] LABS: INTERNATIONAL RATION (INR) 1.06
[2020-11-09 19:05] LABS: PARTIAL THROMBOPLASTIN TIME 27.3 SEC (23.5-35.8)
[2020-11-09 19:16] LABS: ALBUMIN 3.9 g/dL (3.5-5.0); ALKALINE PHOSPHATASE 91 U/L (38-126); ASPARTATE AMINO TRANSFERASE 18 U/L (14-36); BILIRUBIN,DIRECT 0.2 mg/dL (0.0-0.4); BILIRUBIN,TOTAL 0.9 mg/dL (0.2-1.3); BLOOD UREA NITROGEN 40 mg/dL (7-20); CALCIUM 9.7 mg/dL (8.4-10.2); CARBON DIOXIDE 26 mmol/L (22-30); CHLORIDE 108 mmol/L (98-107); CREATINE KINASE 23 U/L (30-135); GLUCOSE 152 mg/dL (75-110); POTASSIUM 4.7 mmol/L (3.6-5.0)
[2020-11-09 19:17] LABS: ANION GAP 4 (5-19)
[2020-11-09 19:28] LABS: CREATINE KINASE MB 1.35 ng/mL (<4.55)
[2020-11-09 19:33] LABS: TROPONIN I < 0.012 ng/mL
--- NOTE | 2020-11-09 20:39 | ER Document Report ---
ED General - General Chief Complaint: S/S of Possible Stroke Stated Complaint: POSS TIA/STROKE Time Seen by Provider: 11/09/20 17:28 Primary Care Provider: BRIA VALENCIA MD [Primary Care Provider] - Follow up as needed Notes: This 69-year-old woman is presenting to the emergency department by EMS with a history of right facial droop and slurred speech which was noted by her at approximately 1 PM in the afternoon 11/09/2020. He notes that she had been somewhat weak with decrease level of activity is starting on 11/08/2020. She has had prior history of TIA and also a prior history of stroke. Today he has concerns that she may be having a new episode. EMS notes that the patient had some slurred speech and right-sided facial weakness upon their arrival. At the time of this examination, prior to the CT scan the patient exhibits no facial droop and her speech appears to be back at baseline. Patient is sent to CT scan for imaging study. TRAVEL OUTSIDE OF THE [place] IN LAST 30 DAYS: No - Related Data Allergies/Adverse Reactions: azithromycin [From Zithromax] Adverse Reaction (Verified 09/27/20 17:14) codeine [Codeine] Adverse Reaction (Verified 09/27/20 17:14) Home Medications: Tacrolimus, Prograf, Ativan, Myoclophenolic, Prednizone, Temazepan, Restoril, Phenergen, Carvedilol, Coreg, Amiteza Past Medical History - Social History Smoking Status: Unknown if Ever Smoked Family History: CAD, DM, Malignancy - Past Medical History Cardiac Medical History: Reports: Hx Coronary Artery Disease, Hx Hypercholesterolemia, Hx Hypertension, Hx Peripheral Vascular Disease Denies: Hx Atrial Fibrillation, Hx Congestive Heart Failure, Hx Heart Attack Pulmonary Medical History: Denies: Hx Asthma, Hx Bronchitis, Hx COPD, Hx Pneumonia Neurological Medical History: Denies: Hx Cerebrovascular Accident, Hx Seizures Endocrine Medical History: Reports: Hx Diabetes Mellitus Type 2. Denies: Hx Diabetes Mellitus Type 1, Hx Hyperthyroidism, Hx Hypothyroidism Renal/ Medical History: Reports: Hx End Stage Renal Disease - w/ kidney transplant GI Medical History: Denies: Hx Cirrhosis, Hx Hepatitis Musculoskeletal Medical History: Denies Hx Arthritis, Denies Hx Fibromyalgia, Reports Hx Musculoskeletal Deformity Skin Medical History: Reports Hx Cellulitis, Denies Hx Eczema, Denies Hx Psoriasis Psychiatric Medical History: Denies: Hx Depression Infectious Medical History: Denies: Hx Hepatitis Past Surgical History: Reports: Hx Cholecystectomy, Hx Kidney (Renal Surgery) - transplant, 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 Denies: Hx Hysterectomy, Hx Pacemaker - Immunizations Hx Diphtheria, Pertussis, Tetanus Vaccination: Yes Hx Pneumococcal Vaccination: 11/01/09 Review of Systems - Review of Systems Notes: Constitutional: Negative for fever. HENT: Negative for sore throat. Eyes: Negative for visual changes. Cardiovascular: Negative for chest pain. Respiratory: Negative for shortness of breath. Gastrointestinal: Negative for abdominal pain, vomiting or diarrhea. Genitourinary: Negative for dysuria. Musculoskeletal: Negative for back pain. Skin: Negative for rash. Neurological: See HPI 10 point ROS negative except as marked above and in HPI. Physical Exam - Vital signs Vitals: Pulse Ox 99 11/09/20 17:36 - Notes Notes: PHYSICAL EXAMINATION: Physical Exam: General: Chronically ill 69-year-old woman in no acute distress HEENT: NC/AT, pupils equal round and reactive to light, MM moist,nares clear, oropharynx clear, airway patent Neck: supple, no adenopathy, no masses. Good range of motion Lungs: clear, no wheezing, no rales no rhonchi CVS: Regular rate and rhythm no murmur gallop or rub Abdomen: Soft, active, nontender, no masses, no hepatosplenomegaly Ext: No edema, clubbing or cyanosis. Neuro: Alert and responsive, + facial symmetry, + speech normal, cranial nerves intact, no focal findings Skin: Intact no open lesions, no rash Course - Vital Signs Vital signs: Temp Pulse Resp BP Pulse Ox 98.8 F 74 14 98 11/09/20 19:03 11/09/20 19:03 11/09/20 19:03 11/09/20 19:03 - Laboratory Results Result Diagrams: 11/09/20 18:46 11/09/20 18:46 Laboratory Results Interpreted: 11/09/20 11/09/20 18:46 18:46 RDW 15.4 H Plt Count 116 L Lymph % (Auto) 6.1 L Absolute Lymphs (auto) 0.4 L Seg Neutrophils % 87.6 H Chloride 108 H Anion Gap 4 L BUN 40 H Est GFR ( Amer) 54 L Est GFR (MDRD) Non-Af 44 L Glucose 152 H Creatine Kinase 23 L 11/09/20 20:31 I have reviewed laboratory data and used this information for the treatment decisions regarding the patient. Critical Laboratory Results Reviewed: No Critical Results - Radiology Results Radiology Results Interpreted: 11/09/20 20:34 Chest X-Ray 11/09/20 17:29 IMPRESSION: NO ACUTE RADIOGRAPHIC FINDING IN THE CHEST. Head CT 11/09/20 17:29 IMPRESSION: No acute intracranial hemorrhage, mass, or evidence of acute territorial infarct. Moderate chronic small vessel ischemic change and intracranial atherosclerosis is stable. EVIDENCE OF ACUTE STROKE: NO. Critical Radiology Results Reviewed: No Critical Results - EKG Interpretation by Fl EKG shows normal: Sinus rhythm - EKG interpreted by Dr. Gurrola: Normal sinus rhythm, rate 74, MD interval 168 ms QT interval 400 ms, LADs, no acute ST or T wave abnormalities, no ischemic findings, compared to EKG dated ,0 there is no significant interval changes. Interpretation: abnormal EKG Discharge - Discharge Clinical Impression: TIA (transient ischemic attack) Diabetes mellitus type II, uncontrolled Qualifiers: Glycemic state: with hyperglycemia Qualified Code(s): E11.65 - Type 2 diabetes mellitus with hyperglycemia Condition: Good Disposition: HOME, SELF-CARE Instructions: Transient Ischemic Attack ([facility]) Additional Instructions: Patient was seen in the emergency department today with a episode of TIA. Does have resolved completely there are no indicators of a need for any intervention. I review of the recent hospitalization reveals negative evaluation with normal carotid Dopplers. These follow-up with your doctor as needed If there are worsening symptoms or other concerns you may return to the emergency department for further evaluation and treatment HOME CARE INSTRUCTIONS & INFORMATION: Thank you for choosing us for your medical needs. We hope you're satisfied with the care you received. After you leave, you must properly care for your problem and, at the same time, observe its progress. Any condition can change. Some illnesses can change rapidly over hours or days. If your condition worsens, return to the Emergency Department or see your physician promptly. ABOUT YOUR X-RAYS AND EKG'S: If you had an EKG or X-rays taken, they have been read by the Emergency Physician. The X-rays and EKG's will also be read by a Radiologist or Metallurgy Teacher within 24 hours. If discrepancies are noted, you will be notified by telephone. Please be certain the ED has a correct telephone number & address where you can be reached. Also, realize that some fractures or abnormalities do not show up on initial X-rays. If your symptoms continue, see your physician. ABOUT YOUR LABORATORY TEST: If you had laboratory tests, the results have been reviewed by the Emergency Physician. Some test results (for example cultures) may not be available for several days. You will be contacted if any test result shows you need additional treatment. Please be certain the ED has a correct [facility] number and address where you can be reached. ABOUT YOUR MEDICATIONS: You will receive instructions on how to take your medicine on the prescription label you receive. Additional information may be provided by the Pharmacy. If you have questions afterwards, call the ED for clarification or further instructions. Some prescribed medications may cause drowsiness. Do not perform tasks such as driving a car or operating machinery without consulting your Pharmacist. If you feel you need a refill of pain medication, your condition will need re-evaluation. Please do not call for a refill of any medication. ABOUT YOUR SIGNATURE: Signature of this document acknowledges to followin. Understanding that you received emergency treatment and that you may be released before al medical problems are known or treated. Please be certain the ED has a correct phone number & address where you can be reached. 2. Acknowledgement that you will arrange for follow-up care as recommended. 3. Authorization for the Emergency Physician to provide information to your follow-up Physician in order to maximize your care. AT ANY TIME, IF YOUR SYMPTOMS CHANGE SIGNIFICANTLY OR WORSEN OR YOU DEVELOP NEW SYMPTOMS, RETURN TO THE EMERGENCY DEPARTMENT IMMEDIATELY FOR RE-EVALUATION. OUR GOAL IS TO PROVIDE EXCELLENT MEDICAL CARE! WE HOPE THAT WE HAVE MET YOUR EXPECTATIONS DURING YOUR EMERGENCY DEPARTMENT VISIT AND THAT YOU FEEL YOU HAVE RECEIVED EXCELLENT CARE! Referrals: BRIA VALENCIA MD [Primary Care Provider] - Follow up as needed
[2020-11-09 21:14] VITALS: BP 134/76
--- NOTE | 2020-11-09 22:40 | EKG REPORT ---
SEVERITY:- OTHERWISE NORMAL ECG - SINUS RHYTHM BORDERLINE LEFT AXIS DEVIATION : Confirmed by: Paty Call 09-Nov-2020 22:39:13
== END 2020-11-09 21:14 | disposition home or self-care (01) ==
LOC: ER 17:24
DX: G45.9 Transient cerebral ischemic attack, unspecified (principal); E11.65 Type 2 diabetes mellitus with hyperglycemia; R29.810 Facial weakness; R47.81 Slurred speech; I25.10 Atherosclerotic heart disease of native coronary artery without angina pectoris; E78.00 Pure hypercholesterolemia, unspecified; I10 Essential (primary) hypertension; Z86.73 Personal history of transient ischemic attack (TIA), and cerebral infarction without residual deficits; Z88.3 Allergy status to other anti-infective agents; Z88.6 Allergy status to analgesic agent
CPT/HCPCS: 36415; 70450; 71045; 80053; 82550; 82553; 84484; 85025; 85610; 85730; 93005; 93010; 99285